=== PATIENT | female | born 1930 | race Caucasian/White ===

== ENCOUNTER 2017-01-01 07:35 | Inpatient (IN) | payer MEDICARE ==
[~2017-01-01] VITALS: Ht 149.9 cm; Wt 66.3 kg
[2017-01-01] VITALS (16 sets, daily range): BP systolic 94–118; BP diastolic 49–66; PULSE 68–134; RESP 16–25; TEMP 98.2–99.1; O2SAT 95–98
[~2017-01-01 07:35] MED LIST: ASPI81 PO; CARD180C5 PO; COUM4TAB7 PO; ENAL5TAB98 PO; FURO20TA PO; GABA100C4 PO; LEVO50TA51 PO; LIPI80TA16 PO; METO50TA PO; OCUV PO; POTA8TAB27 PO; WARF2.5 PO
[2017-01-01] MEDS ORDERED: DILTIAZEM HCL 25 MG/5 ML VIAL IV PUSH ONE (08:00)
[2017-01-01] MEDS ORDERED: SODIUM CHLORIDE 0.9% FLUSH 10 ML FLUSH IVF PRN (08:00)
--- NOTE | 2017-01-01 08:01 | PD ---
HPI Chief Complaint: Cardiac Complaint Time Seen by Provider: 07:47 Travel History International Travel<30 days: No Contact w/Intl Traveler<30days: No Traveled to known affect area: No History of Present Illness HPI His is an 86-year-old female with a history of CHF, previous CVA, previous TIA, mitral valve replacement, atrial fibrillation, who presents today with complaints of her defibrillator firing several times this morning. The patient states that she's had at least 3 possibly 4 episodes of the defibrillator firing in the last several hours. When the paramedics arrived, they found the patient to be in A. fib with RVR. They reported her rate was in the 160s to 180s. The paramedics say they witnessed the defibrillator firing at least 2 times. They administered 20 mg of diltiazem which brought her rate down into the 120s 130s. The patient has no complaints of chest pain or palpitations. She states that she did not feel any preceding effects before the defibrillator fired. Paramedics also reported they thought that they saw several PVCs and possibly a short run of PVCs. The did not have that captured on their monitor. PFSH Past Medical History Hx Anticoagulant Therapy: Yes Arthritis: Yes (LEGS) Asthma: No Autoimmune Disease: No Blood Disorders: No Heart Rhythm Problems: Yes Cancer: No Cardiovascular Problems: Yes High Cholesterol: No Chemotherapy: No Chest Pain: No Congestive Heart Failure: Yes COPD: No Cerebrovascular Accident: Yes (TIA ) Diabetes: No Diminished Hearing: Yes (BILATERAL HEARING AIDES) Endocrine: No Gastrointestinal Disorders: No GERD: No Glaucoma: No Headaches: No Hepatitis: No Hiatal Hernia: No Heparin Induced Thrombocytopen: No Hypertension: Yes Immune Disorder: No Kidney Stones: No Musculoskeletal: Yes Neurologic: Yes Reproductive: No Respiratory: No Integumentary: Yes (LYMPHADEMA ) Migraines: No Myocardial Infarction: No Radiation Therapy: No Renal Failure: No Seizures: No Sickle Cell Disease: No Sleep Apnea: No Thyroid Disease: Yes Ulcer: No ?: Not Menopausal: No Past Surgical History Abdominal Surgery: No AICD: Yes ([facility] ) Appendectomy: No Arteriovenous Shunt: No Cardiac Surgery: Yes (mitral valve 2000) Cholecystectomy: No Ear Surgery: No Endocrine Surgery: No Genitourinary Surgery: No Gynecologic Surgery: No Hysterectomy: No Insulin Pump: No Joint Replacement: No Oral Surgery: Yes (tonsils out) Pacemaker: Yes (PLACED 09/30/08) Thoracic Surgery: No Valve Replacement: Yes (MITRAL VALVE 1999) Other Surgery: Yes (DEFIBRILATOR 2003) Social History Alcohol Use: No Tobacco Use: No Substance Use: No Allergies-Medications (Allergen,Severity, Reaction): Coded Allergies: No Known Allergies (Verified , 10/07/08) Uncoded Allergies: SLEEPING PILLS (Allergy, Severe, 03/11/03) Reported Meds & Prescriptions Reported Meds & Active Scripts Active Reported Ferrous Sulfate 325 Mg (65 Mg Iron) Tablet 325 Mg PO DAILY Centravites 50 Plus (Multivit with Iron,Minerals) 1 Each Tablet 1 Tab PO DAILY Ocuvite Adult 50+ (Multiple Vitamins W/ Minerals) 1 Cap 1 Cap PO DAILY Coq-10 (Coenzyme Q10 (Ubidecarenone)) 50 Mg Cap 200 Mg PO DAILY Folic Acid 0.4 Mg Tab 1 Mg PO DAILY Losartan (Losartan Potassium) 50 Mg Tab 50 Mg PO DAILY Levothyroxine (Levothyroxine Sodium) 75 Mcg Tab 75 Mcg PO DAILY K-Tab (Potassium Chloride) 8 Meq Tab 8 Meq PO BID Furosemide 20 Mg Tab 20 Mg PO BID Metoprolol Tartrate 25 Mg Tab 75 Mg PO BID Atorvastatin (Atorvastatin Calcium) 10 Mg Tab 10 Mg PO HS Warfarin 2.5 Mg Tab 1.25 Mg PO DAILY Gabapentin 300 Mg Cap 300 Mg PO HS Review of Systems Except as stated in HPI: all other systems reviewed are Neg General / Constitutional: No: Fever, Chills HENT: No: Headaches, Lightheadedness Cardiovascular: Positive: Chest Pain or Discomfort (1 the defibrillator fired none when it hasn't fired), Irregular Rhythm (a true fibrillation) Respiratory: No: Cough, Shortness of Breath Gastrointestinal: No: Nausea, Vomiting, Abdominal Pain Genitourinary: No: Urgency, Dysuria Musculoskeletal: Positive: Edema (chronic lower extremity edema), No: Pain Neurologic: No: Weakness, Dizziness, Headache Physical Exam Narrative GENERAL: Well-developed well-nourished female in no acute respiratory distress. SKIN: Focused skin assessment warm/dry. HEAD: Atraumatic. Normocephalic. EYES: No scleral icterus. No injection or drainage. ENT: No nasal bleeding or discharge. Mucous membranes pink and moist. NECK: Trachea midline. No JVD. Supple. CARDIOVASCULAR: Irregularly irregular with a rate in the 130s. No obvious murmur appreciated. RESPIRATORY: No accessory muscle use. Clear to auscultation. Breath sounds equal bilaterally. GASTROINTESTINAL: Abdomen soft, non-tender, nondistended. MUSCULOSKELETAL: No obvious deformities. No clubbing. No cyanosis. No edema. NEUROLOGICAL: Awake and alert. No obvious cranial nerve deficits. Motor grossly within normal limits. Normal speech. PSYCHIATRIC: Appropriate mood and affect; insight and judgment normal. Data Data Last Documented VS Vital Signs Date Time Temp Pulse Resp B/P (MAP) Pulse Ox O2 Delivery O2 Flow Rate FiO2 01/01/17 09:22 137 97/52 01/01/17 08:56 24 97 Nasal Cannula 01/01/17 07:55 2.00 01/01/17 07:48 99.1 Orders Orders Electrocardiogram (01/01/17 ) Electrocardiogram (01/01/17 07:47) Ckmb (Isoenzyme) Profile (01/01/17 07:47) Complete Blood Count With Diff (01/01/17 07:47) Comprehensive Metabolic Panel (01/01/17 07:47) Magnesium (Mg) (01/01/17 07:47) Prothrombin Time / Inr (Pt) (01/01/17 07:47) Act Partial Throm Time (Ptt) (01/01/17 07:47) Troponin I (01/01/17 07:47) Chest, Single Ap (01/01/17 07:47) Ecg Monitoring (01/01/17 07:47) Bilateral Bp Monitoring (01/01/17 07:47) Iv Access Insert/Monitor (01/01/17 07:47) Oximetry (01/01/17 07:47) Oxygen Administration (01/01/17 07:47) Sodium Chloride 0.9% Flush (Ns Flush) (01/01/17 08:00) Diltiazem Inj (Cardizem Inj) (01/01/17 08:00) Diltiazem Inj (Cardizem Inj) (01/01/17 08:00) Admit Order (Ed Use Only) (01/01/17 09:32) Type And Screen (01/01/17 09:33) Red Blood Cells (Rbc) (01/01/17 09:33) Blood Product Administration (01/01/17 09:33) Sodium Chlor 0.9% 250 Ml Inj (Ns 250 Ml (01/01/17 09:45) Labs Laboratory Tests Test 01/01/17 07:54 White Blood Count 25.5 TH/MM3 Red Blood Count 3.00 MIL/MM3 Hemoglobin 8.4 GM/DL Hematocrit 25.7 % Mean Corpuscular Volume 85.7 FL Mean Corpuscular Hemoglobin 27.9 PG Mean Corpuscular Hemoglobin Concent 32.6 % Red Cell Distribution Width 16.4 % Platelet Count 252 TH/MM3 Mean Platelet Volume 7.4 FL Neutrophils (%) (Auto) 91.9 % Lymphocytes (%) (Auto) 2.0 % Monocytes (%) (Auto) 5.9 % Eosinophils (%) (Auto) 0.0 % Basophils (%) (Auto) 0.2 % Neutrophils # (Auto) 23.5 TH/MM3 Lymphocytes # (Auto) 0.5 TH/MM3 Monocytes # (Auto) 1.5 TH/MM3 Eosinophils # (Auto) 0.0 TH/MM3 Basophils # (Auto) 0.0 TH/MM3 CBC Comment AUTO DIFF Differential Comment AUTO DIFF CONFIRMED Prothrombin Time 24.8 SEC Prothromb Time International Ratio 2.2 RATIO Activated Partial Thromboplast Time 36.9 SEC Blood Urea Nitrogen 16 MG/DL Creatinine 0.66 MG/DL Random Glucose 102 MG/DL Total Protein 6.2 GM/DL Albumin 2.5 GM/DL Calcium Level 8.1 MG/DL Magnesium Level 1.3 MG/DL Alkaline Phosphatase 75 U/L Aspartate Amino Transf (AST/SGOT) 17 U/L Alanine Aminotransferase (ALT/SGPT) 13 U/L Total Bilirubin 0.9 MG/DL Sodium Level 138 MEQ/L Potassium Level 3.4 MEQ/L Chloride Level 103 MEQ/L Carbon Dioxide Level 25.4 MEQ/L Anion Gap 10 MEQ/L Estimat Glomerular Filtration Rate 85 ML/MIN Total Creatine Kinase 22 U/L Troponin I 0.06 NG/ML [facility] Medical Decision Making Medical Screen Exam Complete: Yes Emergency Medical Condition: Yes Differential Diagnosis A. fib with RVR versus V. tach versus sinus tach versus ACS Narrative Course A 6-year-old female presents after having her defibrillator fire several times this morning. The patient was noted to be in A. fib with RVR on initial EMS evaluation. They gave her 20 mg of IVD Cardizem which brought her rate down into the 120s 130s. She's had no further firings since then. The patient's noted to be anemic with a hemoglobin of 8.4. She was given a second bolus of diltiazem and placed on a drip. She's currently still in the 120s with her heart rate. Troponin was slightly elevated at 0.08. This is likely secondary to the fibrillator firing. She'll be admitted to the CICU. Case was discussed with Dr. Dilshad Cabrera, [facility] healthcare hospitalist. We did have the defibrillator interrogated and there are no episodes of V. fib or V. tach. She did have rate determine firings. Diagnosis Primary Impression: Atrial fibrillation with RVR Additional Impressions: Anemia Implantable cardioverter-defibrillator discharge Admitting Information Admitting Physician Requests: Admit Pete Camarillo MD Jan 01, 2017 08:01
[2017-01-01 08:05] LABS: AUTOMATED NEUTROPHIL # 23.5 TH/MM3 (1.8-7.7); BASOPHIL % 0.2 % (0.0-2.0); HEMATOCRIT 25.7 % (35.0-46.0); LYMPHOCYTE # 0.5 TH/MM3 (1.0-4.8); MEAN CELL VOLUME 85.7 FL (80.0-100.0); MEAN CORPUSCULAR HEMOGLOBIN 27.9 PG (27.0-34.0); MEAN CORPUSCULAR HGB CONC 32.6 % (32.0-36.0); MONO % 5.9 % (0.0-8.0); NEUT % 91.9 % (16.0-70.0); PLATELET COUNT 252 TH/MM3 (150-450); RED CELL DISTRIBUTION WIDTH 16.4 % (11.6-17.2); WHITE BLOOD COUNT 25.5 TH/MM3 (4.0-11.0)
[2017-01-01 08:12] LABS: HEMO FLAGS AUTO DIFF
[2017-01-01 08:22] LABS: APTT (PATIENT) 36.9 SEC (24.3-30.1); INTERNATIONAL NORMALIZED RATIO 2.2 RATIO; PROTHROMBIN TIME - PATIENT 24.8 SEC (9.8-11.6)
[2017-01-01 08:26] LABS: ANION GAP 10 MEQ/L (5-15); AST (GOT) 17 U/L (15-37); BICARBONATE 25.4 MEQ/L (21.0-32.0); BLOOD UREA NITROGEN 16 MG/DL (7-18); CHLORIDE 103 MEQ/L (98-107); GLOMERULAR FILTRATION RATE 85 ML/MIN (>89); MAGNESIUM 1.3 MG/DL (1.5-2.5); POTASSIUM 3.4 MEQ/L (3.5-5.1); SODIUM (NA) 138 MEQ/L (136-145)
[2017-01-01 08:31] LABS: ALKALINE PHOSPHATASE 75 U/L (45-117); ALT (GPT) 13 U/L (10-53); TOTAL BILIRUBIN ADULT 0.9 MG/DL (0.2-1.0)
[2017-01-01 08:32] LABS: CREATINE KINASE 22 U/L (26-192)
--- NOTE | 2017-01-01 08:35 | RADRPT ---
EXAM DATE/TIME: 01/01/2017 08:08 [place] COMPARISON: No previous studies available for comparison. INDICATIONS : Chest pain. MEDICAL HISTORY : None. SURGICAL HISTORY : CABG. Defibrillator. ENCOUNTER: Initial ACUITY: 1 day PAIN SCORE: 4/10 LOCATION: Bilateral chest FINDINGS: A single view of the chest demonstrates cardiomegaly status post mitral valve replacement with pacer leads right atrium and right ventricle. Minimal basilar atelectasis. No effusion. No pneumothorax. CONCLUSION: 1. Cardiomegaly. Minimal basilar atelectasis. Postoperative change as above. Dylan Olivarez MD on January 01, 2017 at 8:28 Board Certified Radiologist. This report was verified electronically.
[2017-01-01] MEDS: DILTIAZEM INJ 125 MG in SODIUM CHLORIDE 0.9% INJ 100 ML IV PRN ×2 (08:41→21:48)
[2017-01-01] MEDS ORDERED: METO25TA3 PO (08:56)
[2017-01-01] MEDS ORDERED: OCUVCAP2 PO (08:56)
[2017-01-01] MEDS ORDERED: FOLI400T PO (08:56)
[2017-01-01] MEDS ORDERED: LOSA50TA PO (08:56)
[2017-01-01] MEDS ORDERED: COQ-50CA2 PO (08:56)
[2017-01-01] MEDS ORDERED: CENT50TA PO (08:56)
[2017-01-01] MEDS ORDERED: ATOR10TA15 PO (08:56)
[2017-01-01] MEDS ORDERED: WARF-18 PO (08:56)
[2017-01-01] MEDS ORDERED: FERR325T18 PO (08:56)
[2017-01-01] MEDS ORDERED: GABA300C5 PO (08:56)
[2017-01-01] MEDS ORDERED: POTA1TAB77 PO (08:56)
[2017-01-01] MEDS ORDERED: FURO20TA PO (08:56)
[2017-01-01] MEDS ORDERED: LEVO75TA3 PO (08:56)
[2017-01-01 09:01] LABS: SCAN/DIFF AUTO DIFF CONFIRMED
[2017-01-01] MEDS ORDERED: SODIUM CHLORIDE 0.9% FLUSH 10 ML FLUSH IV FLUSH PRN (09:45)
[2017-01-01] MEDS ORDERED: ONDANSETRON HCL 4 MG/2 ML VIAL IVP PRN (09:45)
[2017-01-01] MEDS ORDERED: MAGNESIUM HYDROXIDE SUSP 30 ML CUP PO PRN (09:45)
[2017-01-01] MEDS ORDERED: ACETAMINOPHEN 325 MG TAB PO PRN (09:45)
[2017-01-01] MEDS ORDERED: SODIUM CHLOR 0.9% 250 ML INJ 250 ML IV ONE (09:45)
[2017-01-01] MEDS ORDERED: NALOXONE HCL 0.4 MG/ML AMP IV PUSH PRN (09:45)
[2017-01-01] MEDS ORDERED: POTASSIUM CHLORIDE 20 MEQ CONTROLLED RELEASE TAB PO ONE (09:45)
--- NOTE | 2017-01-01 09:53 | HHI.HP ---
HPI Service [facility] Hospitalists Primary Care Physician Vipul Bowen D.O. Admission Diagnosis afib with rvr, discharge of defibrillator, anemia Chief Complaint: AICD fired mutiple times Travel History International Travel<30 Days: No Contact w/Intl Traveler <30 Da: No Traveled to Known Affected Are: No History of Present Illness This is a 86 year old female patient with a past medical history which includes : Iron deficiency anemia, atrial fibrillation; currently on Coumadin, hyperlipidemia, HTN, defibrillator, mechanical mitral valve, cardiomyopathy with systolic CHF, AICD, RA and TIA. Patient reports that she awoke in her normal state of kandis sat down before breakfast and then experienced multiple shocks from her defibrillator. Patient reports feeling 3 maybe 4 shocks at home. Prior to shocks patient felt, "irritable stomach." Patient did not recall feeling palpitations. Also denies feeling dizzy or lightheaded. Per ER documentation: EMS reported her rate was in the 160s to 180s. The paramedics say they witnessed the defibrillator firing at least 2 times. They administered 20 mg of diltiazem which brought her rate down into the 120s 130s. Patient denies fever, chills, sore throat, dysuria, shortness of breath or cough. Patient was started on iron and folic acid about two weeks ago. Other than the addition of iron and folic acid no other changes in medications recently. 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 Hyperlipidemia Hypothyroidism HTN cardiomyopathy with systolic CHF Defibrillator Mechanical Mitral valve Rheumatoid Arthritis Transient Ischemic Attack (TIA) Past Surgical History Cardio- defibrillator placement Colonoscopy Mechanical mitral valve replacement Tonsillectomy Tubal ligation Reported Medications Ferrous Sulfate 325 Mg (65 Mg Iron) Tablet 325 Mg PO DAILY Centravites 50 Plus (Multivit with Iron,Minerals) 1 Each Tablet 1 Tab PO DAILY Ocuvite Adult 50+ (Multiple Vitamins W/ Minerals) 1 Cap 1 Cap PO DAILY Coq-10 (Coenzyme Q10 (Ubidecarenone)) 50 Mg Cap 200 Mg PO DAILY Folic Acid 0.4 Mg Tab 1 Mg PO DAILY Losartan (Losartan Potassium) 50 Mg Tab 50 Mg PO DAILY Levothyroxine (Levothyroxine Sodium) 75 Mcg Tab 75 Mcg PO DAILY K-Tab (Potassium Chloride) 8 Meq Tab 8 Meq PO BID Furosemide 20 Mg Tab 20 Mg PO BID Metoprolol Tartrate 25 Mg Tab 75 Mg PO BID Atorvastatin (Atorvastatin Calcium) 10 Mg Tab 10 Mg PO HS Warfarin 2.5 Mg Tab 1.25 Mg PO DAILY Gabapentin 300 Mg Cap 300 Mg PO HS Allergies: Coded Allergies: No Known Allergies (Verified , 10/07/08) Uncoded Allergies: SLEEPING PILLS (Allergy, Severe, 03/11/03) Active Ordered Medications Current Medications Medications (Trade) Dose Ordered Sig/Denis Route Start Time Stop Time Status Last Admin (NS Flush) 2 ml UNSCH PRN IVF 01/01/17 08:00 Diltiazem HCl 125 mg/Sodium Chloride 125 ml @ 5 mls/hr TITRATE PRN IV 01/01/17 08:00 01/01/17 08:41 Sodium Chloride 250 ml @ 15 mls/hr ONCE ONCE IV 01/01/17 09:45 01/02/17 02:24 (Lipitor) 10 mg HS PO 01/01/17 21:00 (Ferrous Sulfate) 325 mg DAILY PO 01/02/17 09:00 (Lasix) 20 mg BID@0900,1800 PO 01/01/17 18:00 (Neurontin) 300 mg HS PO 01/01/17 21:00 (Synthroid) 75 mcg DAILY@0600 PO 01/02/17 06:00 (Cozaar) 50 mg DAILY PO 01/02/17 09:00 Future Hold (Lopressor) 75 mg BID PO 01/01/17 21:00 Future Hold (KCl) 8 meq BID PO 01/01/17 21:00 (Coumadin) 1.25 mg DAILY@1600 PO 01/02/17 16:00 Magnesium Sulfate/ Dextrose 100 ml @ 100 mls/hr Q1H IV 01/01/17 09:45 01/01/17 11:44 01/01/17 10:36 (NS Flush) 2 ml UNSCH PRN IV FLUSH 01/01/17 09:45 (NS Flush) 2 ml BID IV FLUSH 01/01/17 21:00 (Tylenol) 650 mg Q4H PRN PO 01/01/17 09:45 (Zofran Inj) 4 mg Q6H PRN IVP 01/01/17 09:45 (Narcan Inj) 0.4 mg UNSCH PRN IV PUSH 01/01/17 09:45 (Marisela-Colace) 1 tab BID PO 01/01/17 21:00 (Milk Of Magnesia Liq) 30 ml Q12H PRN PO 01/01/17 09:45 (Pill Splitter) 1 ea UNSCH PRN OTHER 01/01/17 10:00 Iron Sucrose 100 mg/Sodium Chloride 105 ml @ 105 mls/hr DAILY IV 01/01/17 12:00 01/03/17 09:59 Family History Father at 93 secondary to old age Denies family medical history Social History Lives alone, has a daughter that lives in [place] and helps often. Patient also has neighbors who bring groceries independent with ADL ambulated with cane and walker denies ETOH use, tobacco use or illicit drugs use Physical Exam Vital Signs Vital Signs Date Time Temp Pulse Resp B/P (MAP) Pulse Ox O2 Delivery O2 Flow Rate FiO2 01/01/17 09:44 118 19 99/54 (69) 98 Nasal Cannula 01/01/17 09:22 137 97/52 01/01/17 08:56 110 24 104/59 (74) 97 Nasal Cannula 01/01/17 08:41 115 106/53 01/01/17 08:37 121 24 115/55 (75) 97 Nasal Cannula 01/01/17 08:13 127 22 103/59 (74) 01/01/17 07:56 134 24 109/64 (79) 98 Nasal Cannula 118/64 (82) 01/01/17 07:55 98 Nasal Cannula 2.00 01/01/17 07:48 120 94 Nasal Cannula 2.00 01/01/17 07:48 99.1 121 24 109/64 (79) 97 Nasal Cannula 2.00 Physical Exam GENERAL: This is an 84 year old female patient well-nourished, well-developed patient, in no apparent distress. SKIN: No rashes, ecchymoses or lesions. Cool and dry. HEAD: Atraumatic. Normocephalic. No temporal or scalp tenderness. EYES: Extraocular motions intact. No scleral icterus. No injection or drainage. CARDIOVASCULAR: Irregular and tachycardic RESPIRATORY: Clear to auscultation. Breath sounds equal bilaterally. GASTROINTESTINAL: Abdomen soft, non-tender, nondistended. No guarding. MUSCULOSKELETAL: Extremities without clubbing, cyanosis, or edema. No joint tenderness, effusion, or edema noted. No calf tenderness. Negative Homans sign bilaterally. NEUROLOGICAL: Awake and alert. No focal deficits. Motor and sensory grossly within normal limits. 4 out of 5 muscle strength in all muscle groups. Normal speech. Laboratory Laboratory Tests Test 01/01/17 07:54 White Blood Count 25.5 Red Blood Count 3.00 Hemoglobin 8.4 Hematocrit 25.7 Mean Corpuscular Volume 85.7 Mean Corpuscular Hemoglobin 27.9 Mean Corpuscular Hemoglobin Concent 32.6 Red Cell Distribution Width 16.4 Platelet Count 252 Mean Platelet Volume 7.4 Neutrophils (%) (Auto) 91.9 Lymphocytes (%) (Auto) 2.0 Monocytes (%) (Auto) 5.9 Eosinophils (%) (Auto) 0.0 Basophils (%) (Auto) 0.2 Neutrophils # (Auto) 23.5 Lymphocytes # (Auto) 0.5 Monocytes # (Auto) 1.5 Eosinophils # (Auto) 0.0 Basophils # (Auto) 0.0 CBC Comment AUTO DIFF Differential Comment AUTO DIFF CONFIRMED Prothrombin Time 24.8 Prothromb Time International Ratio 2.2 Activated Partial Thromboplast Time 36.9 Blood Urea Nitrogen 16 Creatinine 0.66 Random Glucose 102 Total Protein 6.2 Albumin 2.5 Calcium Level 8.1 Magnesium Level 1.3 Alkaline Phosphatase 75 Aspartate Amino Transf (AST/SGOT) 17 Alanine Aminotransferase (ALT/SGPT) 13 Total Bilirubin 0.9 Sodium Level 138 Potassium Level 3.4 Chloride Level 103 Carbon Dioxide Level 25.4 Anion Gap 10 Estimat Glomerular Filtration Rate 85 Total Creatine Kinase 22 Troponin I 0.06 Result Diagram: 01/01/17 0754 01/01/17 0754 Imaging Last Impressions Chest X-Ray 01/01/17 2229 Signed Impressions: Service Date/Time: Sunday, January 01, 2017 08:08 - CONCLUSION: 1. Cardiomegaly. Minimal basilar atelectasis. Postoperative change as above. Dylan Olivarez MD Caprini VTE Risk Assessment Caprini VTE Risk Assessment: Mod/High Risk (score >= 2) Caprini Risk Assessment Model Point Value = 1 Point Value = 2 Point Value = 3 Point Value = 5 Age 41-60 Minor surgery BMI > 25 kg/m2 Swollen legs Varicose veins or History of unexplained or recurrent spontaneous Oral contraceptives or hormone replacement Sepsis (< 1 month) Serious lung disease, including pneumonia (< 1 month) Abnormal pulmonary function Acute myocardial infarction Congestive heart failure (< 1 month) History of inflammatory bowel disease Medical patient at bed rest Age 61-74 Arthroscopic surgery Major open surgery (> 45 min) Laparoscopic surgery (> 45 min) Malignancy Confined to bed (> 72 hours) Immobilizing plaster cast Central venous access Age >= 75 History of VTE Family history of VTE Factor V Leiden Prothrombin [id number] Lupus anticoagulant Anticardiolipin antibodies Elevated serum homocysteine Heparin-induced thrombocytopenia Other congenital or acquired thrombophilia Stroke (< 1 month) Elective arthroplasty Hip, pelvis, or leg fracture Acute spinal cord injury (< 1 month) Prophylaxis Regimen Total Risk Factor Score Risk Level Prophylaxis Regimen 0-1 Low Early ambulation 2 Moderate Order ONE of the following: *Sequential Compression Device (SCD) *Heparin 5000 units SQ BID 3-4 Higher Order ONE of the following medications: *Heparin 5000 units SQ TID *Enoxaparin/Lovenox 40 mg SQ daily (WT < 150 kg, CrCl > 30 mL/min) *Enoxaparin/Lovenox 30 mg SQ daily (WT < 150 kg, CrCl > 10-29 mL/min) *Enoxaparin/Lovenox 30 mg SQ BID (WT < 150 kg, CrCl > 30 mL/min) AND/OR *Sequential Compression Device (SCD) 5 or more Highest Order ONE of the following medications: *Heparin 5000 units SQ TID (Preferred with Epidurals) *Enoxaparin/Lovenox 40 mg SQ daily (WT < 150 kg, CrCl > 30 mL/min) *Enoxaparin/Lovenox 30 mg SQ daily (WT < 150 kg, CrCl > 10-29 mL/min) *Enoxaparin/Lovenox 30 mg SQ BID (WT < 150 kg, CrCl > 30 mL/min) AND *Sequential Compression Device (SCD) Assessment and Plan Problem List: (1) Atrial fibrillation with RVR ICD Codes: I48.91 - Unspecified atrial fibrillation Status: Acute Plan: Atrial Fibrillation with RVR Initial EKG reviewed and reveals Atrial Fibrillation RVR with inverted T waves leads V3- V6, EKG from 2013 also showed inverted T waves V3-V6 Patient was shocked by her defibrillator multiple time device interrogated and reveals: 9 VF zone with 9 shocks, 3 in VT- 2 zone with 6 shocks and 48 classed SVT magnesium low on admission 1.3 replaced Potassium also low on admission replaced Troponin 0.06 on admission will trend troponin, likely from defibrillator discharge Patient given Cardizem 20mg IV by EMS started on Cardizem drip in ER will continue Anemia- 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 Niño outpatient Per outpatient records: Outpatient iron studies have shown a very low iron saturation of 10%. She has had extensive work-up including thyroid function testing, B12 and folate testing which was all normal. Her LDH was slightly elevated, haptoglobin was low and direct Iza test was negative. 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 Plan to received iron infusion as outpatient on Tuesday will add iron profile to blood work Will start Venofer today Hypothyroidism Continue home levothyroxine Last TSH check 12/20/16 2.040 Hyperlipidemia continue patient's home statin regiment HTN Will hold patient's home metoprolol 75 mg BID and Losartan 50 mg daily patient currently on Cardizem drip with hypotension Leukocytosis WBC 25.5 possibly due to stress of defibrillator shock and elevated HR no other s/s of infection, afebrile, CXR reviewed and reveals cardiomegaly with bibasilar atelectasis no cough congestion or dysuria monitor for s/s in infection repeat CBC in AM DVT prophylaxis patient is on Coumadin (2) Implantable cardioverter-defibrillator discharge ICD Codes: Z45.02 - Encounter for adjustment and management of automatic implantable cardiac defibrillator Status: Acute (3) Anemia ICD Codes: D64.9 - Anemia, unspecified Status: Acute Physician Certification 2 Midnight Certification Type: Admission for Inpatient Services Order for Inpatient Services The services are ordered in accordance with Medicare regulations or non- Medicare payer requirements, as applicable. In the case of services not specified as inpatient-only, they are appropriately provided as inpatient services in accordance with the 2-midnight benchmark. Estimated LOS (days): 2 days is the estimated time the patient will need to remain in the hospital, assuming treatment plan goals are met and no additional complications. Post-Hospital Plan: Home Claudia Damon Jan 01, 2017 09:53
[2017-01-01] MEDS ORDERED: PILL SPLITTER OTHER PRN (10:00)
[2017-01-01] MEDS: MAGNESIUM SULFATE 1 GM PREMIX 100 ML IV SCH ×2 (10:36→11:46)
[2017-01-01] MEDS: IRON SUCROSE INJ 100 MG in SODIUM CHLORIDE 0.9% INJ 100 ML IV SCH (12:00)
--- NOTE | 2017-01-01 14:29 | EKG ---
Date Performed: 01/01/2017 Time Performed: 07:48:36 PTAGE: 86 years EKG: ATRIAL FIBRILLATION WITH RAPID VENTRICULAR RESPONSE ST DEVIATION AND MODERATE T-WAVE ABNORM ALITY, CONSIDER ANTEROLATERAL ISCHEMIA ST DEVIATION AND MODERATE T-WAVE ABNORMALITY, CONSIDER INFERIO R ISCHEMIA ABNORMAL ECG PREVIOUS TRACING : 02/04/2014 08.22 Compared to prior tracing no significant change DOCTOR: Bill Ramirez Interpretating Date/Time 01/01/2017 14:27:43
[2017-01-01] MEDS: GABAPENTIN 300 MG CAP PO SCH (20:23)
[2017-01-01] MEDS: ATORVASTATIN 10 MG TAB PO SCH (20:24)
[2017-01-01] MEDS: DOCUSATE SODIUM 50 MG/SENNA 8.6 MG TAB PO SCH (20:24)
[2017-01-01] MEDS: POTASSIUM CHLORIDE 8 MEQ CONTROLLED RELEASE TAB PO SCH (20:24)
[2017-01-01] MEDS: FUROSEMIDE 20 MG TAB PO SCH (20:24)
[2017-01-01] MEDS: SODIUM CHLORIDE 0.9% FLUSH 10 ML FLUSH IV FLUSH SCH (20:25)
[2017-01-01] MEDS ORDERED: METOPROLOL TARTRATE 25 MG TAB PO SCH (21:00)
--- NOTE | 2017-01-01 23:35 | EKG ---
Date Performed: 01/01/2017 Time Performed: 15:09:16 PTAGE: 86 years EKG: ATRIAL FIBRILLATION NONSPECIFIC ST & T-WAVE ABNORMALITY ABNORMAL RHYTHM ECG PREVIOUS TRACING : 01/01/2017 07.48 Compared to the previous tracing, rate has decreased and ST /T wave changes are less prominent DOCTOR: Bill Ramirez Interpretating Date/Time 01/01/2017 23:34:29
[2017-01-02] VITALS (14 sets, daily range): BP systolic 108–139; BP diastolic 54–65; PULSE 74–106; RESP 16–26; TEMP 98.2–98.9; O2SAT 91–97
[2017-01-02] MEDS: LEVOTHYROXINE SODIUM 75 MCG TAB PO SCH (06:28)
--- NOTE | 2017-01-02 08:07 | PD.CONS ---
HPI Service cardiology Consult Requested By Reason for Consult defib shock/ afib Primary Care Physician Vipul Bowen D.O. History of Present Illness This is an 86 yo WF with atrial fibrillation, mechanical mitral valve ( anticoagulated on coumadin), cardiomyopathy (ICD in place), history of TIA and anemia who presented to ED via EMS yesterday after receiving multiple defibrillator shocks at home. She had been visiting family the day prior for Thanksgiving and felt well; yesterday morning she began to feel mild stomach upset but otherwise well. She denies SOB, chest pain or palpitations. Her daughter witnessed her receive several shocks and called EMS. She then went on to receive ~ 15 more shocks attributed to Vfib and Vtach seen on device interrogation. Cardizem IV started and HR remains stable. She is being treated for anemia currently, with unknown cause at this point. Hgb low (8.4) upon arrival. ECG showed lateral ST depression, troponins increased. Last echo in 2014 showed EF 25-30%. Magnesium and potassium low. She is currently resting comfortably. 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 Hyperlipidemia Hypothyroidism HTN cardiomyopathy with systolic CHF Defibrillator Mechanical Mitral valve Rheumatoid Arthritis Transient Ischemic Attack (TIA) Past Surgical History Cardio- defibrillator placement Colonoscopy Mechanical mitral valve replacement Tonsillectomy Tubal ligation Reported Medications Reported Meds & Active Scripts Active Reported Ferrous Sulfate 325 Mg (65 Mg Iron) Tablet 325 Mg PO DAILY Centravites 50 Plus (Multivit with Iron,Minerals) 1 Each Tablet 1 Tab PO DAILY Ocuvite Adult 50+ (Multiple Vitamins W/ Minerals) 1 Cap 1 Cap PO DAILY Coq-10 (Coenzyme Q10 (Ubidecarenone)) 50 Mg Cap 200 Mg PO DAILY Folic Acid 0.4 Mg Tab 1 Mg PO DAILY Losartan (Losartan Potassium) 50 Mg Tab 50 Mg PO DAILY Levothyroxine (Levothyroxine Sodium) 75 Mcg Tab 75 Mcg PO DAILY K-Tab (Potassium Chloride) 8 Meq Tab 8 Meq PO BID Furosemide 20 Mg Tab 20 Mg PO BID Metoprolol Tartrate 25 Mg Tab 75 Mg PO BID Atorvastatin (Atorvastatin Calcium) 10 Mg Tab 10 Mg PO HS Warfarin 2.5 Mg Tab 1.25 Mg PO DAILY Gabapentin 300 Mg Cap 300 Mg PO HS Active Ordered Medications Current Medications Medications (Trade) Dose Ordered Sig/Denis Route Start Time Stop Time Status Last Admin (NS Flush) 2 ml UNSCH PRN IVF 01/01/17 08:00 Diltiazem HCl 125 mg/Sodium Chloride 125 ml @ 5 mls/hr TITRATE PRN IV 01/01/17 08:00 01/01/17 21:48 (Lipitor) 10 mg HS PO 01/01/17 21:00 01/01/17 20:24 (Ferrous Sulfate) 325 mg DAILY PO 01/02/17 09:00 (Lasix) 20 mg BID@0900,1800 PO 01/01/17 18:00 01/01/17 20:24 (Neurontin) 300 mg HS PO 01/01/17 21:00 01/01/17 20:23 (Synthroid) 75 mcg DAILY@0600 PO 01/02/17 06:00 01/02/17 06:28 (Cozaar) 50 mg DAILY PO 01/02/17 09:00 Future Hold (Lopressor) 75 mg BID PO 01/01/17 21:00 Future Hold (KCl) 8 meq BID PO 01/01/17 21:00 01/01/17 20:24 (Coumadin) 1.25 mg DAILY@1600 PO 01/02/17 16:00 (NS Flush) 2 ml UNSCH PRN IV FLUSH 01/01/17 09:45 (NS Flush) 2 ml BID IV FLUSH 01/01/17 21:00 01/01/17 20:25 (Tylenol) 650 mg Q4H PRN PO 01/01/17 09:45 (Zofran Inj) 4 mg Q6H PRN IVP 01/01/17 09:45 (Narcan Inj) 0.4 mg UNSCH PRN IV PUSH 01/01/17 09:45 (Marisela-Colace) 1 tab BID PO 01/01/17 21:00 01/01/17 20:24 (Milk Of Magnesia Liq) 30 ml Q12H PRN PO 01/01/17 09:45 (Pill Splitter) 1 ea UNSCH PRN OTHER 01/01/17 10:00 Iron Sucrose 100 mg/Sodium Chloride 105 ml @ 105 mls/hr DAILY IV 01/01/17 12:00 01/03/17 09:59 Family History Father at 93 secondary to old age Denies family medical history Social History Lives alone, has a daughter that lives in [place] and helps often. Patient also has neighbors who bring groceries independent with ADL ambulated with cane and walker denies ETOH use, tobacco use or illicit drugs use (Harika Crenshaw) Physical Exam Vital Signs Vital Signs Date Time Temp Pulse Resp B/P (MAP) Pulse Ox O2 Delivery O2 Flow Rate FiO2 01/02/17 06:00 96 01/02/17 04:00 98.8 89 22 108/56 (73) 97 01/02/17 04:00 89 01/02/17 02:00 89 01/02/17 00:00 97 01/02/17 00:00 98.4 97 20 114/58 (76) 97 01/01/17 22:00 101 01/01/17 21:48 102 114/54 01/01/17 20:31 97 Nasal Cannula 2.00 01/01/17 20:00 98.2 92 21 101/49 (66) 96 01/01/17 20:00 92 01/01/17 18:00 84 01/01/17 16:45 98.5 104 16 102/66 95 01/01/17 16:43 98.9 92 16 103/53 01/01/17 16:00 84 01/01/17 16:00 98.5 68 16 102/54 (70) 95 01/01/17 14:00 84 01/01/17 12:46 81 24 99/54 (69) 98 Room Air 01/01/17 11:44 86 97/54 01/01/17 10:33 107 25 94/50 (65) 97 Nasal Cannula 01/01/17 09:44 118 19 99/54 (69) 98 Nasal Cannula 01/01/17 09:22 137 97/52 01/01/17 08:56 110 24 104/59 (74) 97 Nasal Cannula 01/01/17 08:41 115 106/53 01/01/17 08:37 121 24 115/55 (75) 97 Nasal Cannula 01/01/17 08:13 127 22 103/59 (74) 01/01/17 07:56 134 24 109/64 (79) 98 Nasal Cannula 118/64 (82) 01/01/17 07:55 98 Nasal Cannula 2.00 Physical Exam SKIN: Warm and dry. HEAD: Atraumatic. Normocephalic. EYES: Pupils equal and round. ENT: No nasal bleeding or discharge. Mucous membranes pink and moist. NECK: Trachea midline. No JVD. CARDIOVASCULAR: Regular rate and irregularly irregular rhythm RESPIRATORY: No accessory muscle use. Clear to auscultation. Breath sounds equal bilaterally. GASTROINTESTINAL: Abdomen soft, non-tender, nondistended. MUSCULOSKELETAL: Extremities without clubbing, cyanosis. No obvious deformities. +chronic LE lymphedema bilateral NEUROLOGICAL: Awake and alert. No obvious cranial nerve deficits. Normal speech. PSYCHIATRIC: Appropriate mood and affect; insight and judgment normal. Laboratory Laboratory Tests Test 01/01/17 07:54 01/01/17 13:30 01/01/17 17:40 White Blood Count 25.5 Red Blood Count 3.00 Hemoglobin 8.4 Hematocrit 25.7 Mean Corpuscular Volume 85.7 Mean Corpuscular Hemoglobin 27.9 Mean Corpuscular Hemoglobin Concent 32.6 Red Cell Distribution Width 16.4 Platelet Count 252 Mean Platelet Volume 7.4 Neutrophils (%) (Auto) 91.9 Lymphocytes (%) (Auto) 2.0 Monocytes (%) (Auto) 5.9 Eosinophils (%) (Auto) 0.0 Basophils (%) (Auto) 0.2 Neutrophils # (Auto) 23.5 Lymphocytes # (Auto) 0.5 Monocytes # (Auto) 1.5 Eosinophils # (Auto) 0.0 Basophils # (Auto) 0.0 CBC Comment AUTO DIFF Differential Comment AUTO DIFF CONFIRMED Prothrombin Time 24.8 Prothromb Time International Ratio 2.2 Activated Partial Thromboplast Time 36.9 Blood Urea Nitrogen 16 Creatinine 0.66 Random Glucose 102 Total Protein 6.2 Albumin 2.5 Calcium Level 8.1 Magnesium Level 1.3 Alkaline Phosphatase 75 Aspartate Amino Transf (AST/SGOT) 17 Alanine Aminotransferase (ALT/SGPT) 13 Total Bilirubin 0.9 Sodium Level 138 Potassium Level 3.4 Chloride Level 103 Carbon Dioxide Level 25.4 Anion Gap 10 Estimat Glomerular Filtration Rate 85 Total Creatine Kinase 22 Troponin I 0.06 0.39 Nasal Screen MRSA (PCR) MRSA NOT DETECTED (Harika Crenshaw) Result Diagram: 01/01/17 0754 01/01/17 0754 Imaging Last 48 hours Impressions Chest X-Ray 01/01/17 0747 Signed Impressions: Service Date/Time: Tuesday, January 01, 2017 08:08 - CONCLUSION: 1. Cardiomegaly. Minimal basilar atelectasis. Postoperative change as above. Dylan Olivarez MD (Harika Crenshaw) Assessment and Plan Problem List: (1) Anemia ICD Codes: D64.9 - Anemia, unspecified Status: Acute (2) Atrial fibrillation with RVR ICD Codes: I48.91 - Unspecified atrial fibrillation Status: Acute (3) Implantable cardioverter-defibrillator discharge ICD Codes: Z45.02 - Encounter for adjustment and management of automatic implantable cardiac defibrillator Status: Acute Assessment and Plan This is an 86 yo WF with atrial fibrillation, mechanical mitral valve ( anticoagulated on coumadin), cardiomyopathy (ICD in place), history of TIA and anemia who presented to ED via EMS yesterday after receiving multiple defibrillator shocks at home afib RVR- rate controlled on cardizem gtt and metoprolol. anticoagulated on warfarin, INR 2.2 cardiomyopathy- ICD in place. no history of CAD, s/p multiple defib shocks yesterday. hypomagnesemia and hypokalemia (continue repletion) troponin elevation, ECG shows ST depression laterally. no chest pain. 2D echo anemia- s/p iron infusion x 1, unclear etiology (Harika Crenshaw) Assessment and Plan VT - interrogation of device does show VT s/p defib. replete electrolytes. probable NICM. need to review outpatient records. consider lexiscan r/o ischemic trigger. elevated trop due to defib 2d echo pending - known cardiomyopathy afib RVR - wean cardizem gtt. resume BB (Ivan Lorenzo MD) Harika Crenshaw Jan 02, 2017 08:07 Ivan Lorenzo MD Jan 02, 2017 09:26
[2017-01-02] MEDS: FERROUS SULFATE 325 MG (65 MG ELEMENTAL IRON) TAB PO SCH (08:50)
[2017-01-02] MEDS: IRON SUCROSE INJ 100 MG in SODIUM CHLORIDE 0.9% INJ 100 ML IV SCH (08:51)
[2017-01-02] MEDS: DOCUSATE SODIUM 50 MG/SENNA 8.6 MG TAB PO SCH ×2 (09:00→20:54)
[2017-01-02] MEDS ORDERED: LOSARTAN 50 MG TAB PO SCH (09:00)
[2017-01-02] MEDS: SODIUM CHLORIDE 0.9% FLUSH 10 ML FLUSH IV FLUSH SCH ×2 (09:00→20:54)
--- NOTE | 2017-01-02 09:19 | HHI.PR ---
Subjective Remarks DOING OK. DAUGHTER PRESENT Objective Vitals pale heart irreg lung cta abd s/nt ext no edema Vital Signs Date Time Temp Pulse Resp B/P (MAP) Pulse Ox O2 Delivery O2 Flow Rate FiO2 01/02/17 08:49 97 Nasal Cannula 2.00 01/02/17 06:00 96 01/02/17 04:00 98.8 89 22 108/56 (73) 97 01/02/17 04:00 89 01/02/17 02:00 89 01/02/17 00:00 97 01/02/17 00:00 98.4 97 20 114/58 (76) 97 01/01/17 22:00 101 01/01/17 21:48 102 114/54 01/01/17 20:31 97 Nasal Cannula 2.00 01/01/17 20:00 98.2 92 21 101/49 (66) 96 01/01/17 20:00 92 01/01/17 18:00 84 01/01/17 16:45 98.5 104 16 102/66 95 01/01/17 16:43 98.9 92 16 103/53 01/01/17 16:00 84 01/01/17 16:00 98.5 68 16 102/54 (70) 95 01/01/17 14:00 84 01/01/17 12:46 81 24 99/54 (69) 98 Room Air 01/01/17 11:44 86 97/54 01/01/17 10:33 107 25 94/50 (65) 97 Nasal Cannula 01/01/17 09:44 118 19 99/54 (69) 98 Nasal Cannula 01/01/17 09:22 137 97/52 Result Diagram: 01/01/17 0754 01/01/17 0754 Imaging Last Impressions Chest X-Ray 01/01/17 0747 Signed Impressions: Service Date/Time: Sunday, January 01, 2017 08:08 - CONCLUSION: 1. Cardiomegaly. Minimal basilar atelectasis. Postoperative change as above. Dylan Olivarez MD A/P Problem List: (1) Atrial fibrillation with RVR ICD Codes: I48.91 - Unspecified atrial fibrillation Status: Acute Plan: Atrial Fibrillation with RVR Initial EKG reviewed and reveals Atrial Fibrillation RVR with inverted T waves leads V3- V6, EKG from 2013 also showed inverted T waves V3-V6 Patient was shocked by her defibrillator multiple time device interrogated and reveals: 9 VF zone with 9 shocks, 3 in VT- 2 zone with 6 shocks and 48 classed SVT magnesium low on admission 1.3 replaced Potassium also low on admission replaced Patient given Cardizem 20mg IV by EMS placed on cardizem and limited by blood pressure unable to tolerate her losartan and lopressor due to low bp currently on cardizem 5mg/hr and her 90s to low 100s cardiology eval today and decide on converting iv to po rate control. f/u echo. f/u repeat k and mg and replace as needed. 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 Niño outpatient Per outpatient records: Outpatient iron studies have shown a very low iron saturation of 10%. She has had extensive work-up including thyroid function testing, B12 and folate testing which was all normal. Her LDH was slightly elevated, haptoglobin was low and direct Iza test was negative. 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 reported neg stool guiac by pcp s/p 1 unit prbc 01/01 iv iron infusions ordered Hypothyroidism Continue home levothyroxine Last TSH check 12/20/16 2.040 Hyperlipidemia continue patient's home statin regiment HTN hold arb and bb for now. Leukocytosis WBC 25.5 possibly due to stress of defibrillator shock and elevated HR no other s/s of infection, afebrile, CXR reviewed and reveals cardiomegaly with bibasilar atelectasis no cough congestion or dysuria monitor for s/s in infection repeat CBC pending DVT prophylaxis patient is on Coumadin (2) Implantable cardioverter-defibrillator discharge ICD Codes: Z45.02 - Encounter for adjustment and management of automatic implantable cardiac defibrillator Status: Acute (3) Anemia ICD Codes: D64.9 - Anemia, unspecified Status: Acute (4) Cardiomyopathy ICD Codes: I42.9 - Cardiomyopathy, unspecified Status: Chronic Dilshad Cabrera MD Jan 02, 2017 09:19
[2017-01-02 09:35] LABS: BASOPHIL % 0.2 % (0.0-2.0); HEMATOCRIT 27.8 % (35.0-46.0); HEMO FLAGS DIFF FINAL; LYMPH % 1.6 % (9.0-44.0); LYMPHOCYTE # 0.4 TH/MM3 (1.0-4.8); MEAN CELL VOLUME 85.3 FL (80.0-100.0); MEAN CORPUSCULAR HEMOGLOBIN 28.3 PG (27.0-34.0); MEAN CORPUSCULAR HGB CONC 33.2 % (32.0-36.0); MONO % 4.4 % (0.0-8.0); NEUT % 93.8 % (16.0-70.0); PLATELET COUNT 224 TH/MM3 (150-450); RED BLOOD COUNT 3.25 MIL/MM3 (4.00-5.30); RED CELL DISTRIBUTION WIDTH 16.2 % (11.6-17.2); WHITE BLOOD COUNT 23.5 TH/MM3 (4.0-11.0)
[2017-01-02 09:59] LABS: BICARBONATE 26.4 MEQ/L (21.0-32.0); POTASSIUM 3.8 MEQ/L (3.5-5.1)
[2017-01-02] MEDS: POTASSIUM CHLORIDE 8 MEQ CONTROLLED RELEASE TAB PO SCH ×2 (10:33→20:54)
[2017-01-02] MEDS: FUROSEMIDE 20 MG TAB PO SCH ×2 (10:33→18:00)
[2017-01-02] MEDS: METOPROLOL TARTRATE 25 MG TAB PO SCH ×2 (10:33→20:54)
[2017-01-02 15:11] LABS: BACTERIA, URINE MANY /hpf; BLOOD, URINE SMALL (NEG); COMMENT (UR) CULTURE INDICATED; CULTURE IF INDICATED CULTURE INDICATED; GLUCOSE,URINE NEG (NEG); KETONE, URINE NEG (NEG); MUCUS URINE MANY /lpf (OCC); NITRITE,URINE NEG (NEG); PH, URINE 5.5 (5.0-8.5); SQUAMOUS EPITHELIAL CELL URINE 1 /hpf (0-5); URINE COLOR YELLOW (YELLW/STRAW)
[2017-01-02] MEDS: WARFARIN SOD 2.5 MG TAB PO SCH (16:26)
[2017-01-02] MEDS: DILTIAZEM INJ 125 MG in SODIUM CHLORIDE 0.9% INJ 100 ML IV PRN (18:13)
[2017-01-02] MEDS: ATORVASTATIN 10 MG TAB PO SCH (20:54)
[2017-01-02] MEDS: GABAPENTIN 300 MG CAP PO SCH (20:54)
[2017-01-03] VITALS (14 sets, daily range): BP systolic 122–152; BP diastolic 58–82; PULSE 64–105; RESP 16–29; TEMP 98–99.2; O2SAT 95–99
[2017-01-03] MEDS: LEVOTHYROXINE SODIUM 75 MCG TAB PO SCH (06:00)
[2017-01-03] MEDS: METOPROLOL TARTRATE 25 MG TAB PO SCH ×3 (08:09→20:57)
[2017-01-03] MEDS: FERROUS SULFATE 325 MG (65 MG ELEMENTAL IRON) TAB PO SCH (08:09)
[2017-01-03] MEDS: POTASSIUM CHLORIDE 8 MEQ CONTROLLED RELEASE TAB PO SCH ×2 (08:10→20:57)
--- NOTE | 2017-01-03 08:20 | PD.CARD.PN ---
Subjective Subjective Remarks No CP, SOB, palpitations. No further AICD discharges. Wants to go to the cardiac floor. Objective Medications Current Medications Medications (Trade) Dose Ordered Sig/Denis Route Start Time Stop Time Status Last Admin (NS Flush) 2 ml UNSCH PRN IVF 01/01/17 08:00 Diltiazem HCl 125 mg/Sodium Chloride 125 ml @ 5 mls/hr TITRATE PRN IV 01/01/17 08:00 01/02/17 18:13 (Lipitor) 10 mg HS PO 01/01/17 21:00 01/02/17 20:54 (Ferrous Sulfate) 325 mg DAILY PO 01/02/17 09:00 01/02/17 08:50 (Lasix) 20 mg BID@0900,1800 PO 01/01/17 18:00 01/02/17 10:33 (Neurontin) 300 mg HS PO 01/01/17 21:00 01/02/17 20:54 (Synthroid) 75 mcg DAILY@0600 PO 01/02/17 06:00 01/02/17 06:28 (KCl) 8 meq BID PO 01/01/17 21:00 01/02/17 20:54 (Coumadin) 1.25 mg DAILY@1600 PO 01/02/17 16:00 01/02/17 16:26 (NS Flush) 2 ml UNSCH PRN IV FLUSH 01/01/17 09:45 (NS Flush) 2 ml BID IV FLUSH 01/01/17 21:00 01/02/17 20:54 (Tylenol) 650 mg Q4H PRN PO 01/01/17 09:45 (Zofran Inj) 4 mg Q6H PRN IVP 01/01/17 09:45 (Narcan Inj) 0.4 mg UNSCH PRN IV PUSH 01/01/17 09:45 (Marisela-Colace) 1 tab BID PO 01/01/17 21:00 01/01/17 20:24 (Milk Of Magnesia Liq) 30 ml Q12H PRN PO 01/01/17 09:45 (Pill Splitter) 1 ea UNSCH PRN OTHER 01/01/17 10:00 Iron Sucrose 100 mg/Sodium Chloride 105 ml @ 105 mls/hr DAILY IV 01/01/17 12:00 01/03/17 09:59 01/02/17 08:51 (Lopressor) 25 mg Q12HR PO 01/02/17 09:30 01/02/17 20:54 Vital Signs / I&O Vital Signs Date Time Temp Pulse Resp B/P (MAP) Pulse Ox O2 Delivery O2 Flow Rate FiO2 01/03/17 06:00 95 01/03/17 04:00 78 01/03/17 04:00 99.2 78 16 142/63 (89) 98 01/03/17 02:00 83 01/03/17 00:00 71 01/03/17 00:00 98.4 71 16 122/58 (79) 99 01/02/17 22:00 74 01/02/17 21:11 89 136/62 01/02/17 21:05 97 Nasal Cannula 2.00 01/02/17 20:00 81 01/02/17 20:00 98.9 106 26 139/65 (89) 97 01/02/17 18:13 100 122/73 01/02/17 18:00 81 01/02/17 16:00 81 01/02/17 16:00 98.5 91 16 121/64 (83) 91 01/02/17 14:00 81 01/02/17 12:00 81 01/02/17 12:00 98.7 84 20 114/60 (78) 97 01/02/17 10:00 81 01/02/17 08:49 97 Nasal Cannula 2.00 I/O 01/02/17 01/02/17 01/02/17 01/03/17 01/03/17 01/03/17 07:00 15:00 23:00 07:00 15:00 23:00 Intake Total 350 ml 1785 ml Output Total 450 ml 2000 ml Balance -100 ml -215 ml Intake Oral 350 ml 1680 ml IV Total 105 ml Output Urine Total 450 ml 2000 ml # Bowel Movements 2 10 Physical Exam GEN: WDWN. SKIN: Warm and dry. HEAD: Atraumatic. Normocephalic. NECK: Trachea midline. No JVD. CARDIOVASCULAR: Slightly tachy rate and irregularly irregular rhythm. Mechanical murmur. RESPIRATORY: No accessory muscle use. Clear to auscultation. Breath sounds equal bilaterally. MUSCULOSKELETAL: Extremities without clubbing, cyanosis. No obvious deformities. +chronic LE lymphedema bilateral NEUROLOGICAL: Awake and alert. No obvious cranial nerve deficits. Normal speech. PSYCHIATRIC: Appropriate mood and affect; insight and judgment normal. Laboratory Laboratory Tests Test 01/02/17 09:26 01/02/17 14:30 01/03/17 06:55 White Blood Count 23.5 TH/MM3 Red Blood Count 3.25 MIL/MM3 Hemoglobin 9.2 GM/DL Hematocrit 27.8 % Mean Corpuscular Volume 85.3 FL Mean Corpuscular Hemoglobin 28.3 PG Mean Corpuscular Hemoglobin Concent 33.2 % Red Cell Distribution Width 16.2 % Platelet Count 224 TH/MM3 Mean Platelet Volume 7.5 FL Neutrophils (%) (Auto) 93.8 % Lymphocytes (%) (Auto) 1.6 % Monocytes (%) (Auto) 4.4 % Eosinophils (%) (Auto) 0.0 % Basophils (%) (Auto) 0.2 % Neutrophils # (Auto) 22.0 TH/MM3 Lymphocytes # (Auto) 0.4 TH/MM3 Monocytes # (Auto) 1.0 TH/MM3 Eosinophils # (Auto) 0.0 TH/MM3 Basophils # (Auto) 0.0 TH/MM3 CBC Comment DIFF FINAL Differential Comment Blood Urea Nitrogen 18 MG/DL Creatinine 0.51 MG/DL Random Glucose 144 MG/DL Calcium Level 8.5 MG/DL Sodium Level 137 MEQ/L Potassium Level 3.8 MEQ/L Chloride Level 104 MEQ/L Carbon Dioxide Level 26.4 MEQ/L Anion Gap 7 MEQ/L Estimat Glomerular Filtration Rate 115 ML/MIN Magnesium Level 2.2 MG/DL Urine Color YELLOW Urine Turbidity HAZY Urine pH 5.5 Urine Specific [place] 1.019 Urine Protein TRACE mg/dL Urine Glucose (UA) NEG mg/dL Urine Ketones NEG mg/dL Urine Occult Blood SMALL Urine Nitrite NEG Urine Bilirubin NEG Urine Urobilinogen LESS THAN 2.0 MG/DL Urine Leukocyte Esterase LARGE Urine RBC 3 /hpf Urine WBC 85 /hpf Urine WBC Clumps MANY Urine Squamous Epithelial Cells 1 /hpf Urine Bacteria MANY /hpf Urine Mucus MANY /lpf Microscopic Urinalysis Comment CULTURE INDICATED Assessment and Plan Problem List: (1) Anemia ICD Codes: D64.9 - Anemia, unspecified Status: Acute (2) Atrial fibrillation with RVR ICD Codes: I48.91 - Unspecified atrial fibrillation Status: Acute (3) Implantable cardioverter-defibrillator discharge ICD Codes: Z45.02 - Encounter for adjustment and management of automatic implantable cardiac defibrillator Status: Acute Assessment and Plan This is an 86 yo WF with atrial fibrillation, mechanical mitral valve ( anticoagulated on coumadin), cardiomyopathy (ICD in place), history of TIA and anemia who presented to ED via EMS yesterday after receiving multiple defibrillator shocks at home afib RVR- rate controlled on cardizem gtt and metoprolol. anticoagulated on warfarin, INR 2.2. Wean cardizem gtt. cardiomyopathy: ICD in place. no history of CAD, s/p multiple defib shocks prior to admission. hypomagnesemia and hypokalemia corrected. Troponin elevation 2/[address] depression laterally. -Consider ischemia eval w/ lexiscan vs cath. -2D echo Normocytic anemia: following with hematology as OP who recommended heart valve eval. Echo pending. VT: interrogation of device does show VT s/p defib. replete electrolytes. probable NICM. need to review outpatient records. consider eval to r/o ischemic trigger. elevated trop due to defib Dallin Marquez Jan 03, 2017 08:19
[2017-01-03] MEDS: FUROSEMIDE 20 MG TAB PO SCH ×2 (08:23→18:15)
[2017-01-03] MEDS: IRON SUCROSE INJ 100 MG in SODIUM CHLORIDE 0.9% INJ 100 ML IV SCH (08:23)
[2017-01-03] MEDS: SODIUM CHLORIDE 0.9% FLUSH 10 ML FLUSH IV FLUSH SCH ×2 (08:24→20:54)
[2017-01-03] MEDS: DOCUSATE SODIUM 50 MG/SENNA 8.6 MG TAB PO SCH ×2 (08:25→20:56)
[2017-01-03] MEDS ORDERED: DIGOXIN 0.5 MG/2 ML VIAL IVS STA (08:43)
--- NOTE | 2017-01-03 09:24 | HHI.PR ---
Subjective Remarks no new complaints. has chronic loose stools urinating frequently but no dysuria no sob Objective Vitals heart irreg lung cta abd s/nt ext leg wraps bilaterally Vital Signs Date Time Temp Pulse Resp B/P (MAP) Pulse Ox O2 Delivery O2 Flow Rate FiO2 01/03/17 08:07 95 Nasal Cannula 1.50 01/03/17 06:00 95 01/03/17 04:00 78 01/03/17 04:00 99.2 78 16 142/63 (89) 98 01/03/17 02:00 83 01/03/17 00:00 71 01/03/17 00:00 98.4 71 16 122/58 (79) 99 01/02/17 22:00 74 01/02/17 21:11 89 136/62 01/02/17 21:05 97 Nasal Cannula 2.00 01/02/17 20:00 81 01/02/17 20:00 98.9 106 26 139/65 (89) 97 01/02/17 18:13 100 122/73 01/02/17 18:00 81 01/02/17 16:00 81 01/02/17 16:00 98.5 91 16 121/64 (83) 91 01/02/17 14:00 81 01/02/17 12:00 81 01/02/17 12:00 98.7 84 20 114/60 (78) 97 01/02/17 10:00 81 Result Diagram: 01/02/17 0901/02/17 0926 Imaging Last Impressions Chest X-Ray 01/01/17 0747 Signed Impressions: Service Date/Time: Sunday, January 01, 2017 08:08 - CONCLUSION: 1. Cardiomegaly. Minimal basilar atelectasis. Postoperative change as above. Dylan Olivarez MD A/P Problem List: (1) Atrial fibrillation with RVR ICD Codes: I48.91 - Unspecified atrial fibrillation Status: Acute Plan: Atrial Fibrillation with RVR Initial EKG reviewed and reveals Atrial Fibrillation RVR with inverted T waves leads V3- V6, EKG from 2013 also showed inverted T waves V3-V6 Patient was shocked by her defibrillator multiple time device interrogated and reveals: 9 VF zone with 9 shocks, 3 in VT- 2 zone with 6 shocks and 48 classed SVT magnesium low on admission 1.3 replaced Potassium also low on admission replaced Patient given Cardizem 20mg IV by EMS placed on cardizem and limited by blood pressure still on cardizem gtt. low dose bb added yesterday.... bb increased and given dig per cardiology...stop cardizem no stress recc. echo pending k and mg replaced. recheck. 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 Niño outpatient Per outpatient records: Outpatient iron studies have shown a very low iron saturation of 10%. She has had extensive work-up including thyroid function testing, B12 and folate testing which was all normal. Her LDH was slightly elevated, haptoglobin was low and direct Iza test was negative. 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 reported neg stool guiac by pcp s/p 1 unit prbc 01/01 iv iron infusions ordered cardiology reordered the hemolysis w/up Hypothyroidism Continue home levothyroxine Last TSH check 12/20/16 2.040 Hyperlipidemia continue patient's home statin regiment HTN hold arb and bb for now. Leukocytosis WBC 25.5 possibly due to stress of defibrillator shock and elevated HR possible uti. f/u urine cx. f/u stool studies await repeat cbc...and decide on abx. (2) Implantable cardioverter-defibrillator discharge ICD Codes: Z45.02 - Encounter for adjustment and management of automatic implantable cardiac defibrillator Status: Acute (3) Anemia ICD Codes: D64.9 - Anemia, unspecified Status: Acute (4) Cardiomyopathy ICD Codes: I42.9 - Cardiomyopathy, unspecified Status: Chronic Dilshad Cabrera MD Jan 03, 2017 09:24
[2017-01-03 10:25] LABS: C. DIFF EPI 027 PRESUMPTIVE NEGATIVE (NEGATIVE)
[2017-01-03 11:11] LABS: AUTOMATED NEUTROPHIL # 20.9 TH/MM3 (1.8-7.7); BASOPHIL % 0.2 % (0.0-2.0); EOSINOPHIL % 0.1 % (0.0-4.0); HEMATOCRIT 29.9 % (35.0-46.0); HEMO FLAGS DIFF FINAL; LYMPHOCYTE # 0.5 TH/MM3 (1.0-4.8); MEAN CELL VOLUME 86.1 FL (80.0-100.0); MEAN CORPUSCULAR HEMOGLOBIN 28.2 PG (27.0-34.0); MEAN CORPUSCULAR HGB CONC 32.7 % (32.0-36.0); MONO % 4.2 % (0.0-8.0); NEUT % 93.5 % (16.0-70.0); PLATELET COUNT 274 TH/MM3 (150-450); RED BLOOD COUNT 3.48 MIL/MM3 (4.00-5.30); RED CELL DISTRIBUTION WIDTH 16.4 % (11.6-17.2); WHITE BLOOD COUNT 22.3 TH/MM3 (4.0-11.0)
[2017-01-03 11:39] LABS: BICARBONATE 26.9 MEQ/L (21.0-32.0); POTASSIUM 4.2 MEQ/L (3.5-5.1)
[2017-01-03] MEDS: cefTRIAXone INJ 1,000 MG in SODIUM CHLORIDE 0.9% INJ 100 ML IV SCH (13:00)
[2017-01-03 13:42] LABS: INDIRECT BILIRUBIN 0.4 MG/DL (0.0-0.8); TOTAL BILIRUBIN ADULT 0.6 MG/DL (0.2-1.0)
[2017-01-03 15:35] LABS: INTERNATIONAL NORMALIZED RATIO 2.8 RATIO; PROTHROMBIN TIME - PATIENT 31.8 SEC (9.8-11.6)
[2017-01-03] MEDS: WARFARIN SOD 2.5 MG TAB PO SCH (16:43)
[2017-01-03] MEDS: ATORVASTATIN 10 MG TAB PO SCH (20:56)
[2017-01-03] MEDS: GABAPENTIN 300 MG CAP PO SCH (20:56)
[2017-01-04] VITALS: BP 127/60; PULSE 88; RESP 18; TEMP 97.6; O2SAT 96
[2017-01-04 04:00] VITALS: BP 136/74; PULSE 63; RESP 18; TEMP 97.3; O2SAT 97
[2017-01-04] MEDS: LEVOTHYROXINE SODIUM 75 MCG TAB PO SCH (06:01)
[2017-01-04] MEDS: SODIUM CHLORIDE 0.9% FLUSH 10 ML FLUSH IV FLUSH SCH (07:22)
[2017-01-04 07:25] LABS: AUTOMATED NEUTROPHIL # 15.1 TH/MM3 (1.8-7.7); BASOPHIL % 0.1 % (0.0-2.0); EOSINOPHIL % 0.1 % (0.0-4.0); HEMATOCRIT 30.3 % (35.0-46.0); HEMO FLAGS DIFF FINAL; LYMPH % 3.1 % (9.0-44.0); LYMPHOCYTE # 0.5 TH/MM3 (1.0-4.8); MEAN CELL VOLUME 85.7 FL (80.0-100.0); MEAN CORPUSCULAR HEMOGLOBIN 27.8 PG (27.0-34.0); MEAN CORPUSCULAR HGB CONC 32.4 % (32.0-36.0); MONO % 5.5 % (0.0-8.0); NEUT % 91.2 % (16.0-70.0); PLATELET COUNT 269 TH/MM3 (150-450); PROTHROMBIN TIME - PATIENT 34.6 SEC (9.8-11.6); RED BLOOD COUNT 3.53 MIL/MM3 (4.00-5.30); RED CELL DISTRIBUTION WIDTH 16.1 % (11.6-17.2); WHITE BLOOD COUNT 16.6 TH/MM3 (4.0-11.0)
--- NOTE | 2017-01-04 08:02 | PD.CARD.PN ---
Subjective Subjective Remarks No issues overnight. Blood pressure and heart rate are better. No CP, SOB, palpitations. No further AICD discharges. (Dallin Marquez) Objective Medications Current Medications Medications (Trade) Dose Ordered Sig/Denis Route Start Time Stop Time Status Last Admin (NS Flush) 2 ml UNSCH PRN IVF 01/01/17 08:00 Diltiazem HCl 125 mg/Sodium Chloride 125 ml @ 5 mls/hr TITRATE PRN IV 01/01/17 08:00 01/02/17 18:13 (Lipitor) 10 mg HS PO 01/01/17 21:00 01/03/17 20:56 (Ferrous Sulfate) 325 mg DAILY PO 01/02/17 09:00 01/03/17 08:09 (Lasix) 20 mg BID@0900,1800 PO 01/01/17 18:00 01/03/17 18:15 (Neurontin) 300 mg HS PO 01/01/17 21:00 01/03/17 20:56 (Synthroid) 75 mcg DAILY@0600 PO 01/02/17 06:00 01/04/17 06:01 (KCl) 8 meq BID PO 01/01/17 21:00 01/03/17 20:57 (Coumadin) 1.25 mg DAILY@1600 PO 01/02/17 16:00 01/03/17 16:43 (NS Flush) 2 ml UNSCH PRN IV FLUSH 01/01/17 09:45 (NS Flush) 2 ml BID IV FLUSH 01/01/17 21:00 01/04/17 07:22 (Tylenol) 650 mg Q4H PRN PO 01/01/17 09:45 (Zofran Inj) 4 mg Q6H PRN IVP 01/01/17 09:45 (Narcan Inj) 0.4 mg UNSCH PRN IV PUSH 01/01/17 09:45 (Marisela-Colace) 1 tab BID PO 01/01/17 21:00 01/03/17 20:56 (Milk Of Magnesia Liq) 30 ml Q12H PRN PO 01/01/17 09:45 (Pill Splitter) 1 ea UNSCH PRN OTHER 01/01/17 10:00 (Lopressor) 50 mg Q12HR PO 01/03/17 09:00 01/03/17 20:57 (Lanoxin) 0.125 mg DAILY PO 01/04/17 09:00 Ceftriaxone Sodium 1000 mg/ Sodium Chloride 100 ml @ 200 mls/hr Q24H IV 01/03/17 13:00 01/03/17 13:00 Vital Signs / I&O Vital Signs Date Time Temp Pulse Resp B/P (MAP) Pulse Ox O2 Delivery O2 Flow Rate FiO2 01/04/17 04:00 97.3 63 18 136/74 (94) 97 01/04/17 00:00 Nasal Cannula 2.00 01/04/17 00:00 97.6 88 18 127/60 (82) 96 01/03/17 20:00 98.0 64 18 126/63 (84) 97 01/03/17 20:00 Nasal Cannula 2.00 01/03/17 19:49 86 01/03/17 18:00 85 27 147/65 (92) 97 01/03/17 17:00 73 24 152/69 (96) 97 01/03/17 16:30 80 27 138/65 (89) 96 01/03/17 16:00 99.0 72 29 150/67 (94) 96 01/03/17 15:30 73 26 152/69 (96) 97 01/03/17 12:00 98.1 73 20 149/70 (96) 98 01/03/17 08:07 95 Nasal Cannula 1.50 01/03/17 08:00 98.7 105 20 137/82 (100) 96 I/O 01/03/17 01/03/17 01/03/17 01/04/17 01/04/17 01/04/17 07:00 15:00 23:00 07:00 15:00 23:00 Intake Total 720 ml 240 ml Balance 720 ml 240 ml Intake Oral 400 ml 240 ml IV Total 320 ml # Voids 7 5 # Bowel Movements 3 1 Physical Exam GEN: WDWN. SKIN: Warm and dry. HEAD: Atraumatic. Normocephalic. NECK: Trachea midline. No JVD. CARDIOVASCULAR: Irregular rate and irregular rhythm with PVCs. Mechanical murmur. RESPIRATORY: No accessory muscle use. Clear to auscultation. Breath sounds equal bilaterally. MUSCULOSKELETAL: Extremities without clubbing, cyanosis. No obvious deformities. +chronic LE lymphedema bilateral NEUROLOGICAL: Awake and alert. No obvious cranial nerve deficits. Normal speech. PSYCHIATRIC: Appropriate mood and affect; insight and judgment normal. Laboratory Laboratory Tests Test 01/03/17 10:55 01/03/17 14:15 01/04/17 06:33 White Blood Count 22.3 TH/MM3 16.6 TH/MM3 Red Blood Count 3.48 MIL/MM3 3.53 MIL/MM3 Hemoglobin 9.8 GM/DL 9.8 GM/DL Hematocrit 29.9 % 30.3 % Mean Corpuscular Volume 86.1 FL 85.7 FL Mean Corpuscular Hemoglobin 28.2 PG 27.8 PG Mean Corpuscular Hemoglobin Concent 32.7 % 32.4 % Red Cell Distribution Width 16.4 % 16.1 % Platelet Count 274 TH/MM3 269 TH/MM3 Mean Platelet Volume 7.8 FL 7.6 FL Neutrophils (%) (Auto) 93.5 % 91.2 % Lymphocytes (%) (Auto) 2.0 % 3.1 % Monocytes (%) (Auto) 4.2 % 5.5 % Eosinophils (%) (Auto) 0.1 % 0.1 % Basophils (%) (Auto) 0.2 % 0.1 % Neutrophils # (Auto) 20.9 TH/MM3 15.1 TH/MM3 Lymphocytes # (Auto) 0.5 TH/MM3 0.5 TH/MM3 Monocytes # (Auto) 0.9 TH/MM3 0.9 TH/MM3 Eosinophils # (Auto) 0.0 TH/MM3 0.0 TH/MM3 Basophils # (Auto) 0.0 TH/MM3 0.0 TH/MM3 CBC Comment DIFF FINAL DIFF FINAL Differential Comment Haptoglobin 182 MG/DL Blood Urea Nitrogen 17 MG/DL Creatinine 0.53 MG/DL Random Glucose 117 MG/DL Calcium Level 8.7 MG/DL Magnesium Level 2.0 MG/DL Sodium Level 138 MEQ/L Potassium Level 4.2 MEQ/L Chloride Level 104 MEQ/L Carbon Dioxide Level 26.9 MEQ/L Anion Gap 7 MEQ/L Estimat Glomerular Filtration Rate 110 ML/MIN Total Bilirubin 0.6 MG/DL Direct Bilirubin 0.2 MG/DL Indirect Bilirubin 0.4 MG/DL Lactate Dehydrogenase 293 U/L Prothrombin Time 31.8 SEC 34.6 SEC Prothromb Time International Ratio 2.8 RATIO 3.0 RATIO Imaging Last Impressions Chest X-Ray 01/01/17 4523 Signed Impressions: Service Date/Time: Sunday, January 01, 2017 08:08 - CONCLUSION: 1. Cardiomegaly. Minimal basilar atelectasis. Postoperative change as above. Dylan Olivarez MD (Dallin Marquez) Assessment and Plan Problem List: (1) Anemia ICD Codes: D64.9 - Anemia, unspecified Status: Acute (2) Atrial fibrillation with RVR ICD Codes: I48.91 - Unspecified atrial fibrillation Status: Acute (3) Implantable cardioverter-defibrillator discharge ICD Codes: Z45.02 - Encounter for adjustment and management of automatic implantable cardiac defibrillator Status: Acute Assessment and Plan This is an 86 yo WF with atrial fibrillation, mechanical mitral valve ( anticoagulated on coumadin), cardiomyopathy (ICD in place), history of TIA and anemia who presented after receiving multiple defibrillator shocks at home afib RVR: rate better controlled on digoxin and metoprolol. anticoagulated on warfarin, INR 2.2. Weaning cardizem gtt. digoxin level pending. cardiomyopathy, reportedly nonischemic: ICD in place. no history of CAD, s/p multiple defib shocks prior to admission. hypomagnesemia and hypokalemia corrected. Troponin elevation 2/[address] depression laterally. -Patient and family declined ischemia eval at this time. -2D echo Normocytic anemia: following with hematology as OP who recommended evaluation for possible mitral valve hemolysis. Checked haptoglobin, LDH, indirect bilirubin. Echo pending. VT: interrogation of device showed VT s/p defib. Patient with significant hypokalemia and hypomagnesemia that time, possibly due to infection. Continue aggressive electrolyte replacement. probable NICM. need to review outpatient records. consider eval to r/o ischemic trigger. elevated trop due to defib. (Dallin Marquez) Assessment and Plan agree with above hemolysis panel suggests against mitral valve hemolysis for normocytic anemia no further VT elevated troponin - secondary to defibs. NICM DC home FU dr frazier (Ivan Lorenzo MD) Dallin Marquez Jan 04, 2017 08:02 Ivan Lorenzo MD Jan 04, 2017 10:43
[2017-01-04 08:04] VITALS: BP 151/70; PULSE 84; RESP 19; TEMP 97.8; O2SAT 95
[2017-01-04] MEDS: POTASSIUM CHLORIDE 8 MEQ CONTROLLED RELEASE TAB PO SCH (08:26)
[2017-01-04] MEDS: METOPROLOL TARTRATE 25 MG TAB PO SCH (08:26)
[2017-01-04] MEDS: FERROUS SULFATE 325 MG (65 MG ELEMENTAL IRON) TAB PO SCH (08:26)
[2017-01-04] MEDS: FUROSEMIDE 20 MG TAB PO SCH (08:29)
[2017-01-04] MEDS: DOCUSATE SODIUM 50 MG/SENNA 8.6 MG TAB PO SCH (08:29)
--- NOTE | 2017-01-04 08:54 | HHI.PR ---
Subjective Remarks feels ok . no new complaints Objective Vitals heart irreg lung cta abd s/nt ext no edema Vital Signs Date Time Temp Pulse Resp B/P (MAP) Pulse Ox O2 Delivery O2 Flow Rate FiO2 01/04/17 04:00 97.3 63 18 136/74 (94) 97 01/04/17 00:00 Nasal Cannula 2.00 01/04/17 00:00 97.6 88 18 127/60 (82) 96 01/03/17 20:00 98.0 64 18 126/63 (84) 97 01/03/17 20:00 Nasal Cannula 2.00 01/03/17 19:49 86 01/03/17 18:00 85 27 147/65 (92) 97 01/03/17 17:00 73 24 152/69 (96) 97 01/03/17 16:30 80 27 138/65 (89) 96 01/03/17 16:00 99.0 72 29 150/67 (94) 96 01/03/17 15:30 73 26 152/69 (96) 97 01/03/17 12:00 98.1 73 20 149/70 (96) 98 Result Diagram: 01/04/17 0633 01/03/17 1055 Imaging Last Impressions Chest X-Ray 01/01/17 0747 Signed Impressions: Service Date/Time: Sunday, January 01, 2017 08:08 - CONCLUSION: 1. Cardiomegaly. Minimal basilar atelectasis. Postoperative change as above. Dylan Olivarez MD A/P Problem List: (1) Atrial fibrillation with RVR ICD Codes: I48.91 - Unspecified atrial fibrillation Status: Acute Plan: Atrial Fibrillation with RVR Initial EKG reviewed and reveals Atrial Fibrillation RVR with inverted T waves leads V3- V6, EKG from 2013 also showed inverted T waves V3-V6 Patient was shocked by her defibrillator multiple time device interrogated and reveals: 9 VF zone with 9 shocks, 3 in VT- 2 zone with 6 shocks and 48 classed SVT magnesium low on admission 1.3 replaced Potassium also low on admission replaced Patient given Cardizem 20mg IV by EMS placed on cardizem and limited by blood pressure weaned off cardizem gtt now on po bb and dig lytes replaced echo pending ambulate to assess hr control d/c when ok with cardiology will arrange hhc/pt...monitor her inr while on abx for uti Anemia- 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 Niño outpatient Per outpatient records: Outpatient iron studies have shown a very low iron saturation of 10%. She has had extensive work-up including thyroid function testing, B12 and folate testing which was all normal. Her LDH was slightly elevated, haptoglobin was low and direct Iza test was negative. 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 reported neg stool guiac by pcp s/p 1 unit prbc 01/01 iv iron infusions ordered cardiology reordered the hemolysis w/up pt follows with Dr Niño Hypothyroidism Continue home levothyroxine Last TSH check 12/20/16 2.040 Hyperlipidemia continue patient's home statin regiment HTN hold arb for now. Leukocytosis WBC 25.5 possibly due to stress of defibrillator shock and elevated HR gnr uti..wbc trending down. on rocephin. f/u cx. (2) Implantable cardioverter-defibrillator discharge ICD Codes: Z45.02 - Encounter for adjustment and management of automatic implantable cardiac defibrillator Status: Acute (3) Anemia ICD Codes: D64.9 - Anemia, unspecified Status: Acute (4) Cardiomyopathy ICD Codes: I42.9 - Cardiomyopathy, unspecified Status: Chronic Dilshad Cabrera MD Jan 04, 2017 08:54
[2017-01-04] MEDS ORDERED: DIGOXIN 0.125 MG TAB PO SCH (09:00)
[2017-01-04] MEDS ORDERED: IRON SUCROSE INJ 100 MG in SODIUM CHLORIDE 0.9% INJ 100 ML IV ONE (10:00)
[2017-01-04 12:04] VITALS: BP 115/58; PULSE 66; RESP 19; TEMP 97.7; O2SAT 95
[2017-01-04] MEDS ORDERED: DIGO0.12 PO (12:43)
[2017-01-04] MEDS ORDERED: METO25TA3 PO (12:43)
[2017-01-04] MEDS ORDERED: CIPR250T52 PO (12:43)
--- NOTE | 2017-01-04 12:43 | HHI.DCPOC ---
Discharge Care Plan Diagnosis: (1) UTI (urinary tract infection) (2) Cardiomyopathy (3) Implantable cardioverter-defibrillator discharge (4) Atrial fibrillation with RVR (5) Anemia Goals to Promote Your Health * To prevent worsening of your condition and complications * To maintain your health at the optimal level Directions to Meet Your Goals Take your medications as prescribed Follow your dietary instruction Follow activity as directed Keep your appointments as scheduled Take your immunizations and boosters as scheduled If your symptoms worsen call your PCP, if no PCP go to Urgent Care Center or Emergency Room Smoking is Dangerous to Your Health. Avoid second hand smoke Call the 24-hour hour crisis hotline for domestic abuse at Dilshad Cabrera MD Jan 04, 2017 12:43
--- NOTE | 2017-01-04 12:48 | HHI.FF ---
Face to Face Verification Diagnosis: (1) Atrial fibrillation with RVR (2) Implantable cardioverter-defibrillator discharge (3) Cardiomyopathy (4) Anemia (5) UTI (urinary tract infection) Physical Therapy Order: Evaluate and Treat, Improve ambulation Home Health Nursing Order: Medical education Signs/symptoms of disease process Medication education-adverse effect Nursing assessment with vital signs Instructions: check inr / and 01/10..her gear keeper office dr Kristofer Foster with results and get instruction to hold or continue coumadin. I would hold coumadin if inr over 3. Can also notify pcp dr Adelfo Bowen with results (note pt is on cipro and worried about drug interaction). Last dose of cipro on 01/09 I have seen patient Manasa Franks on 01/04/17. My clinical findings support the need for the requested home health care services because: Deconditioned w/ increased weakness I certify that my clinical findings support that this patient is homebound because: Unsteady gait/balance Unsafe to leave home unassisted Dilshad Cabrera MD Jan 04, 2017 12:48
--- NOTE | 2017-01-04 12:53 | HHI.DS ---
Discharge Summary Admission Date Jan 01, 2017 at 09:34 Discharge Date: Jan 04, 2017 Admitting Diagnosis afib with rvr, discharge of defibrillator, anemia (1) Atrial fibrillation with RVR Diagnosis: Principal ICD Codes: I48.91 - Unspecified atrial fibrillation Status: Acute (2) Implantable cardioverter-defibrillator discharge Diagnosis: Principal ICD Codes: Z45.02 - Encounter for adjustment and management of automatic implantable cardiac defibrillator Status: Acute (3) Anemia Diagnosis: Principal ICD Codes: D64.9 - Anemia, unspecified Status: Acute (4) Cardiomyopathy Diagnosis: Secondary ICD Codes: I42.9 - Cardiomyopathy, unspecified Status: Chronic (5) UTI (urinary tract infection) Diagnosis: Principal ICD Codes: N39.0 - Urinary tract infection, site not specified Brief History This is a 86 year old female patient with a past medical history which includes : Iron deficiency anemia, atrial fibrillation; currently on Coumadin, hyperlipidemia, HTN, defibrillator, mechanical mitral valve, cardiomyopathy with systolic CHF, AICD, RA and TIA. Patient reports that she awoke in her normal state of kandis sat down before breakfast and then experienced multiple shocks from her defibrillator. Patient reports feeling 3 maybe 4 shocks at home. Prior to shocks patient felt, "irritable stomach." Patient did not recall feeling palpitations. Also denies feeling dizzy or lightheaded. Per ER documentation: EMS reported her rate was in the 160s to 180s. The paramedics say they witnessed the defibrillator firing at least 2 times. They administered 20 mg of diltiazem which brought her rate down into the 120s 130s. Patient denies fever, chills, sore throat, dysuria, shortness of breath or cough. Patient was started on iron and folic acid about two weeks ago. Other than the addition of iron and folic acid no other changes in medications recently. CBC/BMP: 01/04/17 0633 01/03/17 1055 Significant Findings Laboratory Tests Test 01/01/17 13:30 01/01/17 17:40 01/02/17 09:26 01/02/17 14:30 Troponin I 0.39 NG/ML (0.02-0.05) White Blood Count 23.5 TH/MM3 (4.0-11.0) Red Blood Count 3.25 MIL/MM3 (4.00-5.30) Hemoglobin 9.2 GM/DL (11.6-15.3) Hematocrit 27.8 % (35.0-46.0) Neutrophils (%) (Auto) 93.8 % (16.0-70.0) Lymphocytes (%) (Auto) 1.6 % (9.0-44.0) Neutrophils # (Auto) 22.0 TH/MM3 (1.8-7.7) Lymphocytes # (Auto) 0.4 TH/MM3 (1.0-4.8) Monocytes # (Auto) 1.0 TH/MM3 (0-0.9) Random Glucose 144 MG/DL (74-106) Urine Turbidity HAZY (CLEAR) Urine Occult Blood SMALL (NEG) Urine Leukocyte Esterase LARGE (NEG) Urine WBC 85 /hpf (0-5) Urine WBC Clumps MANY (NONE) Urine Bacteria MANY /hpf (NONE) Urine Mucus MANY /lpf (OCC) Test 01/03/17 06:55 01/03/17 10:55 01/03/17 14:15 01/04/17 06:33 White Blood Count 22.3 TH/MM3 (4.0-11.0) 16.6 TH/MM3 (4.0-11.0) Red Blood Count 3.48 MIL/MM3 (4.00-5.30) 3.53 MIL/MM3 (4.00-5.30) Hemoglobin 9.8 GM/DL (11.6-15.3) 9.8 GM/DL (11.6-15.3) Hematocrit 29.9 % (35.0-46.0) 30.3 % (35.0-46.0) Neutrophils (%) (Auto) 93.5 % (16.0-70.0) 91.2 % (16.0-70.0) Lymphocytes (%) (Auto) 2.0 % (9.0-44.0) 3.1 % (9.0-44.0) Neutrophils # (Auto) 20.9 TH/MM3 (1.8-7.7) 15.1 TH/MM3 (1.8-7.7) Lymphocytes # (Auto) 0.5 TH/MM3 (1.0-4.8) 0.5 TH/MM3 (1.0-4.8) Random Glucose 117 MG/DL (74-106) Lactate Dehydrogenase 293 U/L (84-246) Prothrombin Time 31.8 SEC (9.8-11.6) 34.6 SEC (9.8-11.6) Digoxin Level 0.5 NG/ML (0.8-2.0) Hospital Course (1) Atrial fibrillation with RVR Atrial Fibrillation with RVR Initial EKG reviewed and reveals Atrial Fibrillation RVR with inverted T waves leads V3- V6, EKG from 2014 also showed inverted T waves V3-V6 Patient was shocked by her defibrillator multiple time device interrogated and reveals: 9 VF zone with 9 shocks, 3 in VT- 2 zone with 6 shocks and 48 classed SVT magnesium low on admission 1.3 replaced Potassium also low on admission replaced Patient given Cardizem 20mg IV by EMS placed on cardizem and limited by blood pressure weaned off cardizem gtt now on po bb and dig lytes replaced echo pending ambulated to assess hr control and doing well. cardiology ok with d/c...f/u echo in office also C to check inr and notify cardiology with results..concern for abx interaction. d/c home today. 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 Niño outpatient Per outpatient records: Outpatient iron studies have shown a very low iron saturation of 10%. She has had extensive work-up including thyroid function testing, B12 and folate testing which was all normal. Her LDH was slightly elevated, haptoglobin was low and direct Iza test was negative. 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 reported neg stool guiac by pcp s/p 1 unit prbc 01/01 iv iron infusions ordered cardiology reordered the hemolysis w/up pt follows with Dr Niño Hypothyroidism Continue home levothyroxine Last TSH check 12/20/16 2.040 Hyperlipidemia continue patient's home statin regiment HTN hold arb for now. Leukocytosis WBC 25.5 possibly due to stress of defibrillator shock and elevated HR gnr uti..wbc trending down. on rocephin. f/u cx... klebsiella...d/c on cipro (2) Implantable cardioverter-defibrillator discharge ICD Codes: Z45.02 - Encounter for adjustment and management of automatic implantable cardiac defibrillator Status: Acute (3) Anemia ICD Codes: D64.9 - Anemia, unspecified Status: Acute (4) Cardiomyopathy ICD Codes: I42.9 - Cardiomyopathy, unspecified Status: Chronic Dilshad Cabrera MD Jan 04, 2017 08:54 Pt Condition on Discharge: Stable Discharge Disposition: Disch w/ Home Health Serv Discharge Instructions DIET: Follow Instructions for: Heart Healthy Diet Activities you can perform: Regular-No Restrictions Follow up Referrals: Cardiology - 2 Weeks @ [facility] Cardiology with Kristofer Foster PCP Follow-up - [address] aurelio garcia New Medications: Ciprofloxacin (Cipro) 250 Mg Tab 250 MG PO BID for Infection for 5 Days, #10 TAB 0 Refills Digoxin (Digoxin) 0.125 Mg Tab 0.125 MG PO DAILY for afib, #30 TAB 3 Refills Metoprolol Tartrate (Metoprolol Tartrate) 25 Mg Tab 50 MG PO Q12HR for afib, #60 TAB 3 Refills Continued Medications: Atorvastatin (Atorvastatin) 10 Mg Tab 10 MG PO HS for Cholesterol Management, #30 TAB 0 Refills Coenzyme Q10 (Ubidecarenone) (Coq-10) 50 Mg Cap 200 MG PO DAILY Ferrous Sulfate (Ferrous Sulfate) 325 Mg (65 Mg Iron) Tablet 325 MG PO DAILY for Nutritional Supplement, #30 TAB 0 Refills Folic Acid (Folic Acid) 0.4 Mg Tab 1 MG PO DAILY for Nutritional Supplement, TAB 0 Refills Furosemide (Furosemide) 20 Mg Tab 20 MG PO BID, #60 TAB 0 Refills Gabapentin (Gabapentin) 300 Mg Cap 300 MG PO HS, #30 CAP 0 Refills Levothyroxine (Levothyroxine) 75 Mcg Tab 75 MCG PO DAILY for Thyroid, #30 TAB 0 Refills Losartan (Losartan) 50 Mg Tab 50 MG PO DAILY for Blood Pressure Management, #30 TAB 0 Refills Multiple Vitamins W/ Minerals (Ocuvite Adult 50+) 1 Cap 1 CAP PO DAILY for Nutritional Supplement, CAP 0 Refills Multivit with Iron,Minerals (Centravites 50 Plus) 1 Each Tablet 1 TAB PO DAILY Potassium Chloride ER (K-Tab) 8 Meq Tab 8 MEQ PO BID for Electrolyte Replacement, #60 TAB 0 Refills Warfarin (Warfarin) 2.5 Mg Tab 1.25 MG PO DAILY for Blood Clot Prevention, #30 TAB 0 Refills Discontinued Medications: Metoprolol Tartrate (Metoprolol Tartrate) 25 Mg Tab 75 MG PO BID, #60 TAB 0 Refills Dilshad Cabrera MD Jan 04, 2017 12:53
[2017-01-04] MEDS: cefTRIAXone INJ 1,000 MG in SODIUM CHLORIDE 0.9% INJ 100 ML IV SCH (13:32)
--- NOTE | 2017-01-05 10:20 | ECHRPT ---
Indication: CARDIOMYOPATHY CONCLUSIONS Normal left ventricular size. Wall thickness is normal. The left ventricular systolic function is low normal with an estimated ejection fraction in the rang e of 50- 55%. The left atrial size is moderately dilated. The right atrial size is [id number] dilated. Mild mitral valve regurgitation. Mechanical mitral valve prosthetic, normally functioning. Mitral valve mean gradient is 3.7 mmHg. The mitral valve area by Pressure Halftime Method is 3.38 cm. Aortic valve sclerosis is present. Trace aortic valve regurgitation. There is moderate to severe tricuspid valve regurgitation. Mild pulmonary valve regurgitation. BP: 142 / 63 HR: 78 Rhythm: Atrial fibrillation MEASUREMENTS (Male / Female) Normal Values Technical Quality:Fair 2D ECHO LV Diastolic Diameter PLAX 5.1 cm 4.2 - 5.9 / 3.9 - 5.3 cm LV Systolic Diameter PLAX 4.0 cm IVS Diastolic Thickness 0.8 cm 0.6 - 1.0 / 0.6 - 0.9 cm LVPW Diastolic Thickness 0.8 cm 0.6 - 1.0 / 0.6 - 0.9 cm LV Relative Wall Thickness 0.3 RV Internal Dim ED PLAX 2.8 cm LVOT Diameter 1.9 cm Aortic Root Diameter 2.9 cm LA Systolic Diameter LX 4.5 cm 3.0 - 4.0 / 2.7 - 3.8 cm M-MODE AV Cusp Separation MM 1.4 cm DOPPLER AV Peak Velocity 178.7 cm/s AV Peak Gradient 12.8 mmHg AV Mean Gradient 7.3 mmHg AV Velocity Time Integral 32.9 cm LVOT Peak Velocity 58.7 cm/s LVOT Peak Gradient 1.4 mmHg LVOT Velocity Time Integral 11.9 cm LVOT Cardiac Index 2186.0 cm/minm AV Area Cont Eq vti 1.0 cm AV Area Cont Eq pk 0.9 cm MV Peak Velocity 186.0 cm/s MV Peak Gradient 13.8 mmHg MV Mean Velocity 85.8 cm/s MV Mean Gradient 3.7 mmHg MV Area PHT 3.4 cm Mitral E Point Velocity 5.9 cm/s LV E' Lateral Velocity 10.1 cm/s Mitral E to LV E' Lateral Ratio 0.6 LV E' Septal Velocity 6.9 cm/s Mitral E to LV E' Septal Ratio 0.8 TR Peak Velocity 286.0 cm/s TR Peak Gradient 32.7 mmHg Right Atrial Pressure 10.0 mmHg Pulmonary Artery Systolic Pressu 42.7 mmHg Right Ventricular Systolic Press 42.7 mmHg PV Peak Velocity 50.3 cm/s PV Peak Gradient 1.0 mmHg FINDINGS LEFT VENTRICLE Normal left ventricular size. Wall thickness is normal. The left ventricular systolic function is low normal with an estimated ejection fraction in the rang e of 50- 55%. RIGHT VENTRICLE Normal right ventricular size and systolic function. LEFT ATRIUM The left atrial size is moderately dilated. RIGHT ATRIUM The right atrial size is [id number] dilated. ATRIAL SEPTUM Normal atrial septal thickness without atrial level shunting by limited color doppler interrogation. AORTA The aortic root and proximal ascending aorta are normal in size on limited imaging. MITRAL VALVE Mild mitral valve regurgitation. Mechanical mitral valve prosthetic, normally functioning. Mitral valve mean gradient is 3.7 mmHg. The mitral valve area by Pressure Halftime Method is 3.38 cm. AORTIC VALVE Aortic valve sclerosis is present. Trace aortic valve regurgitation. TRICUSPID VALVE There is moderate to severe tricuspid valve regurgitation. PULMONARY VALVE Mild pulmonary valve regurgitation. VESSELS The inferior vena cava is normal in size. PERICARDIUM No pericardial effusion. Ivan Lorenzo MD, FACC (Electronically Signed) Final Date:05 January 2017 10:18
== END 2017-01-04 14:26 | disposition home or self-care (01) | DRG 309 ==
LOC: NEPC 07:35 → NEDA 09:34 → HIMN 13:00 → N04B 01-03 19:18
PROVIDERS: ADMIT Hospitalist; ATTEND Hospitalist
DX: I48.91 Unspecified atrial fibrillation (principal); I50.22 Chronic systolic (congestive) heart failure; I47.2 Ventricular tachycardia; I42.9 Cardiomyopathy, unspecified; I11.0 Hypertensive heart disease with heart failure; E83.42 Hypomagnesemia; N39.0 Urinary tract infection, site not specified; I47.1 Supraventricular tachycardia; E87.6 Hypokalemia; D50.9 Iron deficiency anemia, unspecified; E03.9 Hypothyroidism, unspecified; E78.5 Hyperlipidemia, unspecified; D72.829 Elevated white blood cell count, unspecified; M06.9 Rheumatoid arthritis, unspecified; H91.93 Unspecified hearing loss, bilateral; Z79.01 Long term (current) use of anticoagulants; Z86.73 Personal history of transient ischemic attack (TIA), and cerebral infarction without residual deficits; Z95.2 Presence of prosthetic heart valve; Z95.810 Presence of automatic (implantable) cardiac defibrillator
CPT/HCPCS: 36430; 71010; 80048; 80053; 80162; 81001; 82247; 82248; 82550; 83010; 83615; 83735; 84484; 85025; 85610; 85730; 86850; 86900; 86901; 86920; 87077; 87086; 87186; 87205; 87328; 87329; 87493; 87641; 93005; 93306; 96365; 96375; J0696; J1160; J1756; J3475; P9016

== ENCOUNTER 2017-01-05 07:00 | Inpatient (IN) | payer MEDICARE ==
[~2017-01-05] VITALS: Ht 149.9 cm; Wt 60.3 kg
[2017-01-05] VITALS (9 sets, daily range): BP systolic 112–138; BP diastolic 62–78; PULSE 75–170; RESP 16–18; TEMP 97.9–98.2; O2SAT 94–100
[~2017-01-05 07:00] MED LIST changes: -ASPI81 PO; +ATOR10TA15 PO; -CARD180C5 PO; +CENT50TA PO; +CIPR250T52 PO; +COQ-50CA2 PO; -COUM4TAB7 PO; +DIGO0.12 PO; -ENAL5TAB98 PO; +FERR325T18 PO; +FOLI400T PO; -GABA100C4 PO; +GABA300C5 PO; -LEVO50TA51 PO; +LEVO75TA3 PO; -LIPI80TA16 PO; +LOSA50TA PO; +METO25TA3 PO; -METO50TA PO; -OCUV PO; +OCUVCAP2 PO; +POTA1TAB77 PO; -POTA8TAB27 PO; +WARF-18 PO; -WARF2.5 PO
--- NOTE | 2017-01-05 07:11 | PD ---
HPI Chief Complaint: Cardiac Complaint Time Seen by Provider: 07:10 Travel History International Travel<30 days: No Contact w/Intl Traveler<30days: No Traveled to known affect area: No History of Present Illness HPI 86-year-old female came to the emergency room brought by EMS for tachycardia. Patient was discharged from the hospital yesterday for anemia and tachycardia. She had received 2 units of blood transfusion and was seen by ball mill operator Dr. Lorenzo. She was noticed to be in a rapid heart rate in the 180s to 190s this morning when EMS was called. When EMS initially arrived they noticed the rate but it spontaneously dropped down to 160s. They transported her. No medication was given. However soon after arriving to the emergency room heart rate went up to the 180s to 190s again. Patient is awake and answering questions appropriately. She is hard of hearing. She denies of any chest pain or shortness of breath. Blood pressure was stable. Patient was oxygenating 95 % on room air. [facility] Past Medical History Narrative Medical List of her past medical, surgical, social and family history is reviewed from the nursing note. Hx Anticoagulant Therapy: Yes Arthritis: Yes (LEGS) Asthma: No Autoimmune Disease: No Blood Disorders: No Heart Rhythm Problems: Yes Cancer: No Cardiovascular Problems: Yes (MITRAL VALVE REPLACEMENT ) High Cholesterol: No Chemotherapy: No Chest Pain: No Congestive Heart Failure: Yes COPD: No Cerebrovascular Accident: Yes (TIA ) Diabetes: No Diminished Hearing: Yes (BILATERAL HEARING AIDES) Endocrine: No Gastrointestinal Disorders: No GERD: No Glaucoma: No Headaches: No Hepatitis: No Hiatal Hernia: No Heparin Induced Thrombocytopen: No Hypertension: Yes Immune Disorder: No Kidney Stones: No Musculoskeletal: Yes Neurologic: Yes Reproductive: No Respiratory: No Integumentary: Yes (LYMPHADEMA ) Migraines: No Myocardial Infarction: No Radiation Therapy: No Renal Failure: No Seizures: No Sickle Cell Disease: No Sleep Apnea: No Thyroid Disease: Yes Ulcer: No Menopausal: No Past Surgical History Abdominal Surgery: No AICD: Yes ([facility] ) Appendectomy: No Arteriovenous Shunt: No Cardiac Surgery: No Cholecystectomy: No Ear Surgery: No Endocrine Surgery: No Eye Surgery: No Genitourinary Surgery: No Gynecologic Surgery: No Hysterectomy: No Insulin Pump: No Joint Replacement: No Oral Surgery: No Pacemaker: Yes (PLACED 09/30/08) Thoracic Surgery: Yes Valve Replacement: Yes (MITRAL VALVE 1999) Other Surgery: Yes (DEFIBRILATOR 2003) Social History Alcohol Use: No Tobacco Use: No Substance Use: Yes Allergies-Medications (Allergen,Severity, Reaction): Coded Allergies: No Known Allergies (Verified Allergy, Unknown, 01/05/17) Uncoded Allergies: SLEEPING PILLS (Allergy, Severe, 03/11/03) Comments No known drug allergies. Reported Meds & Prescriptions Reported Meds & Active Scripts Active Cipro (Ciprofloxacin HCl) 250 Mg Tab 250 Mg PO BID 5 Days Metoprolol Tartrate 25 Mg Tab 50 Mg PO Q12HR Digoxin 0.125 Mg Tab 0.125 Mg PO DAILY Reported Ferrous Sulfate 325 Mg (65 Mg Iron) Tablet 325 Mg PO DAILY Centravites 50 Plus (Multivit with Iron,Minerals) 1 Each Tablet 1 Tab PO DAILY Ocuvite Adult 50+ (Multiple Vitamins W/ Minerals) 1 Cap 1 Cap PO DAILY Coq-10 (Coenzyme Q10 (Ubidecarenone)) 50 Mg Cap 200 Mg PO DAILY Folic Acid 0.4 Mg Tab 1 Mg PO DAILY Losartan (Losartan Potassium) 50 Mg Tab 50 Mg PO DAILY Levothyroxine (Levothyroxine Sodium) 75 Mcg Tab 75 Mcg PO DAILY K-Tab (Potassium Chloride) 8 Meq Tab 8 Meq PO BID Furosemide 20 Mg Tab 20 Mg PO BID Atorvastatin (Atorvastatin Calcium) 10 Mg Tab 10 Mg PO HS Warfarin 2.5 Mg Tab 1.25 Mg PO DAILY Gabapentin 300 Mg Cap 300 Mg PO HS Narrative Medication List of her home medications reviewed from the nursing note. Review of Systems Except as stated in HPI: all other systems reviewed are Neg Cardiovascular: Positive: Palpitations Physical Exam Narrative GENERAL: Awake, alert, elderly, moderate distress, anxious SKIN: Focused skin assessment warm/dry. Pale HEAD: Atraumatic. Normocephalic. EYES: Pupils equal and round. No scleral icterus. No injection or drainage. ENT: No nasal bleeding or discharge. Mucous membranes pink and moist. NECK: Trachea midline. No JVD. CARDIOVASCULAR: Regular rate and rhythm, tachycardia. No murmur appreciated. RESPIRATORY: No accessory muscle use. Clear to auscultation. Breath sounds equal bilaterally. GASTROINTESTINAL: Abdomen soft, non-tender, nondistended. Hepatic and splenic margins not palpable. MUSCULOSKELETAL: No obvious deformities. No clubbing. No cyanosis. No edema. NEUROLOGICAL: Awake and alert. No obvious cranial nerve deficits. Motor grossly within normal limits. Normal speech. PSYCHIATRIC: Appropriate mood and affect; insight and judgment normal. Data Data Last Documented VS Orders Orders Adenosine Inj (Adenocard Inj) (01/05/17 07:15) Diltiazem Inj (Cardizem Inj) (01/05/17 07:16) Diltiazem (Cardizem) (01/05/17 07:30) Electrocardiogram (01/05/17 07:24) Basic Metabolic Panel (Bmp) (01/05/17 07:24) Complete Blood Count With Diff (01/05/17 07:24) Magnesium (Mg) (01/05/17 07:24) Prothrombin Time / Inr (Pt) (01/05/17 07:24) Troponin I (01/05/17 07:24) Chest, Single Ap (01/05/17 07:24) Ecg Monitoring (01/05/17 07:24) Bilateral Bp Monitoring (01/05/17 07:24) Iv Access Insert/Monitor (01/05/17 07:24) Oximetry (01/05/17 07:24) Oxygen Administration (01/05/17 07:24) Sodium Chloride 0.9% Flush (Ns Flush) (01/05/17 07:30) Diltiazem Inj (Cardizem Inj) (01/05/17 07:30) Sodium Chlorid 0.9% 500 Ml Inj (Ns 500 M (01/05/17 07:30) Digoxin (01/05/17 07:20) Urinalysis - C+S If Indicated (01/05/17 08:37) Admit Order (Ed Use Only) (01/05/17 09:32) Labs Laboratory Tests Test 01/05/17 07:20 White Blood Count 18.5 TH/MM3 Red Blood Count 4.25 MIL/MM3 Hemoglobin 11.7 GM/DL Hematocrit 36.8 % Mean Corpuscular Volume 86.5 FL Mean Corpuscular Hemoglobin 27.6 PG Mean Corpuscular Hemoglobin Concent 31.9 % Red Cell Distribution Width 16.7 % Platelet Count 300 TH/MM3 Mean Platelet Volume 7.9 FL Neutrophils (%) (Auto) 88.3 % Lymphocytes (%) (Auto) 4.2 % Monocytes (%) (Auto) 7.0 % Eosinophils (%) (Auto) 0.3 % Basophils (%) (Auto) 0.2 % Neutrophils # (Auto) 16.3 TH/MM3 Lymphocytes # (Auto) 0.8 TH/MM3 Monocytes # (Auto) 1.3 TH/MM3 Eosinophils # (Auto) 0.1 TH/MM3 Basophils # (Auto) 0.0 TH/MM3 CBC Comment AUTO DIFF Differential Total Cells Counted 100 Neutrophils % (Manual) 78 % Band Neutrophils % 4 % Lymphocytes % 5 % Monocytes % 10 % Neutrophils # (Manual) 15.7 TH/MM3 Metamyelocytes 3 % Differential Comment FINAL DIFF MANUAL Platelet Estimate NORMAL Platelet Morphology Comment NORMAL Ovalocytes 1+ Prothrombin Time 35.2 SEC Prothromb Time International Ratio 3.0 RATIO Blood Urea Nitrogen 23 MG/DL Creatinine 0.72 MG/DL Random Glucose 142 MG/DL Calcium Level 9.1 MG/DL Magnesium Level 1.9 MG/DL Sodium Level 133 MEQ/L Potassium Level 4.4 MEQ/L Chloride Level 99 MEQ/L Carbon Dioxide Level 25.1 MEQ/L Anion Gap 9 MEQ/L Estimat Glomerular Filtration Rate 77 ML/MIN Troponin I 0.02 NG/ML Digoxin Level 0.6 NG/ML MDM Medical Decision Making Medical Screen Exam Complete: Yes Emergency Medical Condition: Yes Medical Record Reviewed: Yes Interpretation(s) Twelve-lead EKG was reviewed by me. Narrow complex tachycardia, SVT versus a flutter with 2-1 block. Heart rate of 196 bpm Differential Diagnosis Atrial flutter with 2-1 block, SVT, electrolyte abnormality Narrative Course 7:33 PM patient was given IV Cardizem 25 mg. Just before the Cardizem was injected heart rate was noticed to have come down to 145-165 bpm and at this point underlying A. fib was clearly visible on the monitor. Blood pressure was 156. I decided to go ahead and give this patient 25 mg of Cardizem upon which patient's heart rate slowed down to the 80s to 100s. Blood pressure came down to 105 systolic. Patient's facial color improved. Patient's that she was feeling better. I've ordered by mouth Cardizem 90 mg. Awaiting for blood work. I'll discuss the case with Dr. Lorenzo once the blood test results of back. I ordered a repeat 12-lead EKG at this point which shows atrial fibrillation, normal axis, lateral ST depressions and T-wave inversions. Heart rate of 105 bpm. 9:33 AM patient continues to be in heart rate of 60s to 70s but in A. fib. Discussed the case with Dr. Foster the ball mill operator and he would like to admit the patient for overnight observation and then adjust her medications. I discussed the case with the hospitalist was accepted here. Patient has leukocytosis and trending her labs back she has had high white blood cell count last time when she was here. She was also diagnosed with UTI which grew Klebsiella and she was discharged home on ciprofloxacin which the bacteria was sensitive to. I've asked for a repeat UA at this point. Critical Care Narrative Aggregate critical care time was 45 minutes. Time to perform other separately billable procedures was not included in the critical care time. My time did not include minutes spent treating any other patients simultaneously or on activities that did not directly contribute to the patient's treatment. The services I provided to this patient were to treat and/or prevent clinically significant deterioration that could result in: A. fib with RVR, Cardizem bolus, rate control I provided critical care services requiring my management, as noted below: Chart data review, documentation time, medication orders and management, vital sign assessments/reviewing monitor data, ordering and reviewing lab tests, ordering and interpreting/reviewing x-rays and diagnostic studies, care of the patient and discussion of the patient with the admitting physicians. Procedures EKG Prior to Arrival: Yes Physician Communication Physician Communication Dr. Foster Diagnosis Primary Impression: Atrial fibrillation with RVR Additional Impressions: AICD discharge Leukocytosis Qualified Codes: D72.829 - Elevated white blood cell count, unspecified Admitting Information Admitting Physician Requests: Observation Aaron Perez MD Jan 05, 2017 07:11
[2017-01-05] MEDS ORDERED: ADENOSINE IV SOLN 3 MG/ML 2 ML VIAL ONE (07:15)
[2017-01-05] MEDS ORDERED: DILTIAZEM HCL 25 MG/5 ML VIAL ONE (07:16)
[2017-01-05] MEDS: SODIUM CHLORIDE 0.9% FLUSH 10 ML FLUSH IVF PRN (07:19)
[2017-01-05] MEDS ORDERED: DILTIAZEM HCL 25 MG/5 ML VIAL IV ONE (07:30)
[2017-01-05] MEDS ORDERED: DILTIAZEM HCL 90 MG TAB PO ONE (07:30)
[2017-01-05] MEDS ORDERED: SODIUM CHLORID 0.9% 500 ML INJ 500 ML IV ONE (07:30)
[2017-01-05 07:46] LABS: AUTOMATED NEUTROPHIL # 16.3 TH/MM3 (1.8-7.7); BASOPHIL % 0.2 % (0.0-2.0); EOSINOPHIL # 0.1 TH/MM3 (0-0.4); EOSINOPHIL % 0.3 % (0.0-4.0); HEMATOCRIT 36.8 % (35.0-46.0); LYMPH % 4.2 % (9.0-44.0); LYMPHOCYTE # 0.8 TH/MM3 (1.0-4.8); MEAN CELL VOLUME 86.5 FL (80.0-100.0); MEAN CORPUSCULAR HEMOGLOBIN 27.6 PG (27.0-34.0); MEAN CORPUSCULAR HGB CONC 31.9 % (32.0-36.0); NEUT % 88.3 % (16.0-70.0); PLATELET COUNT 300 TH/MM3 (150-450); RED BLOOD COUNT 4.25 MIL/MM3 (4.00-5.30); RED CELL DISTRIBUTION WIDTH 16.7 % (11.6-17.2); WHITE BLOOD COUNT 18.5 TH/MM3 (4.0-11.0)
[2017-01-05 07:47] LABS: HEMO FLAGS AUTO DIFF
[2017-01-05 07:55] LABS: PROTHROMBIN TIME - PATIENT 35.2 SEC (9.8-11.6)
--- NOTE | 2017-01-05 08:12 | RADRPT ---
EXAM DATE/TIME: 01/05/2017 07:50 [facility] COMPARISON: CHEST SINGLE AP, January 01, 2017, 8:08. INDICATIONS : Defibulator going off, causing chest discomfort and irregular heart beat. Patient just discharged Tue01-04-2017. MEDICAL HISTORY : Myocardial infarction. SURGICAL HISTORY : Pacemaker. CABG. ENCOUNTER: [facility] ACUITY: 1 day PAIN SCORE: 7/10 LOCATION: Bilateral chest FINDINGS: A single portable frontal view the chest shows moderate cardiomegaly. Prosthetic heart valve, median sternotomy wires, and left-sided pacing device. No pulmonary vascular engorgement. Lungs are clear. N o effusions. CONCLUSION: Cardiomegaly. No acute infiltrate or effusion. Carter Rausch Jr., MD on January 05, 2017 at 8:09 Board Certified Radiologist. This report was verified electronically.
[2017-01-05 08:20] LABS: BICARBONATE 25.1 MEQ/L (21.0-32.0); MAGNESIUM 1.9 MG/DL (1.5-2.5)
[2017-01-05 08:21] LABS: POTASSIUM 4.4 MEQ/L (3.5-5.1)
[2017-01-05 08:37] LABS: DIGOXIN 0.6 NG/ML (0.8-2.0)
[2017-01-05 08:42] LABS: BANDS 4 % (0-6); METAMYELOCYTES 3 % (0-1); NEUTROPHIL # MANUAL DIFF 15.7 TH/MM3 (1.8-7.7); POLYS (SEG NEUTROPHILS) 78 % (16-70); WBC DIFF SAMPLE 100
[2017-01-05 08:43] LABS: OVALOCYTES 1+ (NORMAL); PLATELET ESTIMATE SMEAR NORMAL (NORMAL); PLATELET MORPHOLOGY NORMAL (NORMAL); SCAN/DIFF FINAL DIFF MANUAL
--- NOTE | 2017-01-05 09:16 | EKG ---
Date Performed: 01/05/2017 Time Performed: 07:12:58 PTAGE: 86 years EKG: SUPRAVENTRICULAR TACHYCARDIA MODERATE INTRAVENTRICULAR CONDUCTION DELAY Nonspecific ST and T wave abnormalities ABNORMAL ECG Compared to prior electrocardiogram, Supraventricular tachycardia i s now present and ST segment and T wave changes are more marked . DOCTOR: Rigo Rosado Interpretating Date/Time 01/05/2017 09:15:40
--- NOTE | 2017-01-05 10:20 | HHI.HP ---
HPI Service [facility] Primary Care Physician Vipul Bowen D.O. Admission Diagnosis A. fib, RVR, AICD fired Chief Complaint: AICD firing Travel History International Travel<30 Days: No Contact w/Intl Traveler <30 Da: No Traveled to Known Affected Are: No History of Present Illness Pt is an 86 y/o female with atrial fibrillation on chronic anticoagulation with Coumadin, Cardiomyopathy with AICD, CHF with EF 25-30%. She was recently admitted from 01/01/17 to 01/04/17 for anemia, defibrillator firing and A. fib RVR. During that admission was was given IV Cardizem but its use was limited due to hypotension and was weaned off. She was placed on Metoprolol 50mg po BID and Digoxin. Pt was transfused with 1 unit of PRBCs and IV iron during that admission. She was also found to have a UTI with urine culture growing Klebsiella and was discharged on Cipro. Pt was discharged home yesterday and reported that this morning she was feeling well and gave herself a sponge bath. Then while sitting down having a cup of coffee her AICD fired twice. EMS was called. When EMS initially arrived they noticed the rate but it reportedly her HR was in the 160s per the ED notes. Pt reports that she had one more episode of the AICD firing prior to getting in the ambulance. They transported her to the ED but no medication was given. However soon after arriving to the emergency room heart rate went up to the 180s to 190s again. Cardiology was consulted and pt was administered IV Cardizem and given Cardizem 90mg po x one dose. Pt still in A. fib with HR in the 80's at the time of admission. 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 Hyperlipidemia Hypothyroidism HTN cardiomyopathy with systolic CHF Defibrillator Mechanical Mitral valve Rheumatoid Arthritis Transient Ischemic Attack (TIA) 2D echo (12/09/14): - EF 25-30% - LA moderately increased in size - Mechanical mitral valve, no mitral valve stenosis - Trace mitral regurg - Aortic valve sclerosis, mild aortic valve stenosis - Moderate to severe tricuspid valve regurgitation - PA pressure moderately elevated at 44mmHg Past Surgical History AICD placement Colonoscopy Mechanical mitral valve replacement Tonsillectomy Tubal ligation Reported Medications Cipro 250 Mg PO BID 5 Days Metoprolol Tartrate 50 Mg PO Q12HR Digoxin 0.125 Mg PO DAILY Ferrous Sulfate 325 Mg PO DAILY Centravites 50 Plus 1 Tab PO DAILY Ocuvite Adult 50+ 1 Cap PO DAILY Coq-10 200 Mg PO DAILY Folic Acid 1 Mg PO DAILY Losartan 50 Mg PO DAILY Levothyroxine 75 Mcg PO DAILY K-Tab 8 Meq PO BID Furosemide 20 Mg PO BID Atorvastatin 10 Mg PO HS Warfarin 1.25 Mg PO DAILY Gabapentin 300 Mg PO HS Allergies: Coded Allergies: No Known Allergies (Verified Allergy, Unknown, 01/05/17) Uncoded Allergies: SLEEPING PILLS (Allergy, Severe, 03/11/03) Family History Father at 93 secondary to old age Social History Lives alone, has a daughter that lives in [place] and helps often. Patient also has neighbors who bring groceries Independent with ADL ambulated with cane and walker Denies ETOH use, tobacco use or illicit drugs use Physical Exam Vital Signs Vital Signs Date Time Temp Pulse Resp B/P (MAP) Pulse Ox O2 Delivery O2 Flow Rate FiO2 01/05/17 08:42 85 16 113/62 (79) 99 Nasal Cannula 2.00 01/05/17 07:39 99 18 126/66 (86) 98 Room Air 01/05/17 07:32 124 18 113/73 (86) 98 Room Air 123/71 (88) 01/05/17 07:29 98 Room Air 01/05/17 07:29 (97) Room Air 01/05/17 07:08 98.2 170 18 137/78 (97) 97 Room Air 01/05/17 07:07 170 18 Physical Exam GENERAL: This is a well-nourished, well-developed patient, in no apparent distress. SKIN: No rashes, ecchymoses or lesions. Cool and dry. HEAD: Atraumatic. Normocephalic. No temporal or scalp tenderness. EYES: Pupils equal round and reactive. Extraocular motions intact. No scleral icterus. No injection or drainage. ENT: Nose without bleeding, purulent drainage or septal hematoma. Throat without erythema, tonsillar hypertrophy or exudate. Uvula midline. Airway patent. NECK: Trachea midline. No JVD or lymphadenopathy. Supple, nontender, no meningeal signs. CARDIOVASCULAR: Regular rate and rhythm without murmurs, gallops, or rubs. RESPIRATORY: Clear to auscultation. Breath sounds equal bilaterally. No wheezes , rales, or rhonchi. GASTROINTESTINAL: Abdomen soft, non-tender, nondistended. No hepato-splenomegaly , or palpable masses. No guarding. MUSCULOSKELETAL: Extremities without clubbing, cyanosis, or edema. No joint tenderness, effusion, or edema noted. No calf tenderness. Negative Homans sign bilaterally. NEUROLOGICAL: Awake and alert. Cranial nerves II through XII intact. Motor and sensory grossly within normal limits. Five out of 5 muscle strength in all muscle groups. Normal speech. Laboratory Laboratory Tests Test 01/05/17 07:20 White Blood Count 18.5 Red Blood Count 4.25 Hemoglobin 11.7 Hematocrit 36.8 Mean Corpuscular Volume 86.5 Mean Corpuscular Hemoglobin 27.6 Mean Corpuscular Hemoglobin Concent 31.9 Red Cell Distribution Width 16.7 Platelet Count 300 Mean Platelet Volume 7.9 Neutrophils (%) (Auto) 88.3 Lymphocytes (%) (Auto) 4.2 Monocytes (%) (Auto) 7.0 Eosinophils (%) (Auto) 0.3 Basophils (%) (Auto) 0.2 Neutrophils # (Auto) 16.3 Lymphocytes # (Auto) 0.8 Monocytes # (Auto) 1.3 Eosinophils # (Auto) 0.1 Basophils # (Auto) 0.0 CBC Comment AUTO DIFF Differential Total Cells Counted 100 Neutrophils % (Manual) 78 Band Neutrophils % 4 Lymphocytes % 5 Monocytes % 10 Neutrophils # (Manual) 15.7 Metamyelocytes 3 Differential Comment FINAL DIFF MANUAL Platelet Estimate NORMAL Platelet Morphology Comment NORMAL Ovalocytes 1+ Prothrombin Time 35.2 Prothromb Time International Ratio 3.0 Blood Urea Nitrogen 23 Creatinine 0.72 Random Glucose 142 Calcium Level 9.1 Magnesium Level 1.9 Sodium Level 133 Potassium Level 4.4 Chloride Level 99 Carbon Dioxide Level 25.1 Anion Gap 9 Estimat Glomerular Filtration Rate 77 Troponin I 0.02 Digoxin Level 0.6 Result Diagram: 01/05/1771901/05/17719 Caprini VTE Risk Assessment Caprini VTE Risk Assessment: Mod/High Risk (score >= 2) Caprini Risk Assessment Model Point Value = 1 Point Value = 2 Point Value = 3 Point Value = 5 Age 41-60 Minor surgery BMI > 25 kg/m2 Swollen legs Varicose veins or History of unexplained or recurrent spontaneous Oral contraceptives or hormone replacement Sepsis (< 1 month) Serious lung disease, including pneumonia (< 1 month) Abnormal pulmonary function Acute myocardial infarction Congestive heart failure (< 1 month) History of inflammatory bowel disease Medical patient at bed rest Age 61-74 Arthroscopic surgery Major open surgery (> 45 min) Laparoscopic surgery (> 45 min) Malignancy Confined to bed (> 72 hours) Immobilizing plaster cast Central venous access Age >= 75 History of VTE Family history of VTE Factor V Leiden Prothrombin [id number] Lupus anticoagulant Anticardiolipin antibodies Elevated serum homocysteine Heparin-induced thrombocytopenia Other congenital or acquired thrombophilia Stroke (< 1 month) Elective arthroplasty Hip, pelvis, or leg fracture Acute spinal cord injury (< 1 month) Prophylaxis Regimen Total Risk Factor Score Risk Level Prophylaxis Regimen 0-1 Low Early ambulation 2 Moderate Order ONE of the following: *Sequential Compression Device (SCD) *Heparin 5000 units SQ BID 3-4 Higher Order ONE of the following medications: *Heparin 5000 units SQ TID *Enoxaparin/Lovenox 40 mg SQ daily (WT < 150 kg, CrCl > 30 mL/min) *Enoxaparin/Lovenox 30 mg SQ daily (WT < 150 kg, CrCl > 10-29 mL/min) *Enoxaparin/Lovenox 30 mg SQ BID (WT < 150 kg, CrCl > 30 mL/min) AND/OR *Sequential Compression Device (SCD) 5 or more Highest Order ONE of the following medications: *Heparin 5000 units SQ TID (Preferred with Epidurals) *Enoxaparin/Lovenox 40 mg SQ daily (WT < 150 kg, CrCl > 30 mL/min) *Enoxaparin/Lovenox 30 mg SQ daily (WT < 150 kg, CrCl > 10-29 mL/min) *Enoxaparin/Lovenox 30 mg SQ BID (WT < 150 kg, CrCl > 30 mL/min) AND *Sequential Compression Device (SCD) Assessment and Plan Problem List: (1) AICD discharge ICD Codes: Z45.02 - Encounter for adjustment and management of automatic implantable cardiac defibrillator Status: Acute Plan: Pt is an 86 y/o female with atrial fibrillation on chronic anticoagulation with Coumadin, Cardiomyopathy with AICD, CHF with EF 25-30%. She was recently admitted from 01/01/17 to 01/04/17 for anemia, defibrillator firing and A. fib RVR. During that admission was was given IV Cardizem but its use was limited due to hypotension and was weaned off. She was placed on Metoprolol 50mg po BID and Digoxin. Pt was transfused with 1 unit of PRBCs and IV iron during that admission. She was also found to have a UTI with urine culture growing Klebsiella and was discharged on Cipro. Pt was discharged home yesterday and reported that this morning her AICD fired twice and EMS was called. When EMS initially arrived they noticed the rate but it reportedly her HR in the 160s. Her AICD fired again while walking to the ambulance They transported her to the ED but no medication was given. However soon after arriving to the emergency room heart rate went up to the 180s to 190s again. Cardiology was consulted and pt was administered IV Cardizem and given Cardizem 90mg po x one dose. Pt still in A. fib with HR in the 80's at the time of admission. Atrial Fibrillation with RVR Defibrillator firing - Pt was admitted with tachycardia and reported firing of her defibrillator - Patient was shocked by her defibrillator multiple times prior to her last admission and at that time the device was interrogated and revealed 9 VF zone with 9 shocks, 3 in VT- 2 zone with 6 shocks and 48 classed SVT - Pt was discharged on Metoprolol 50mg Q12H and Digoxin 0.125mg po daily. - Pt readmitted with A. fib RVR and patient given Cardizem 25mg IV x one dose and Cardizem 90mg po x one dose int he ED with adequate rate control. - Dig Level at admission was subtherapeutic at 0.6 - Cont. oral Cardizem 60mg Q6H - INR 3.0 at admission. 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 Niño outpatient - During recent admission pt received 1 unit PRBCs and Iron infusion - Per outpatient records, outpatient iron studies have shown a very low iron saturation of 10%. She has had extensive work-up including thyroid function testing, B12 and folate testing which was all normal. Her LDH was slightly elevated , haptoglobin was low and direct Iza test was negative. 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 Previously reported neg stool guiac by pcp - Pt follows with Dr Niño Hypothyroidism - Continue home levothyroxine - Last TSH check 12/20/16 2.040 Hyperlipidemia - continue patient's home statin regiment HTN - Hold ARB for now. UTI with Klebsiella Leukocytosis - WBC 18.5 at admission - Pt previously noted to have UTI with culture growing Klebsiella. - Pt was discharged on Cipro, this will be continued. (2) Atrial fibrillation with RVR ICD Codes: I48.91 - Unspecified atrial fibrillation Status: Acute (3) Leukocytosis ICD Codes: D72.829 - Elevated white blood cell count, unspecified Status: Acute (4) UTI (urinary tract infection) ICD Codes: N39.0 - Urinary tract infection, site not specified (5) Cardiomyopathy ICD Codes: I42.9 - Cardiomyopathy, unspecified Status: Chronic Assessment and Plan Patient examined. Assessment and plan formulated with Becky Patton PA-C. I agree with the above. recurrent afib/rvr with defibrillation. ccb initiated and bb/dig/arb on hold her foundry hand was notified by ED cont abx for uti. monitor inr. Problem Qualifiers (1) Leukocytosis: Qualified Codes: D72.829 - Elevated white blood cell count, unspecified Becky Patton Jan 05, 2017 10:20 Dilshad Cabrera MD Jan 05, 2017 21:16
[2017-01-05 11:16] LABS: BLOOD, URINE NEG (NEG); COMMENT (UR) CULT NOT INDICATED; CULTURE IF INDICATED CULT NOT INDICATED; GLUCOSE,URINE NEG (NEG); HYALINE CAST, URINE 3 /lpf (RARE); KETONE, URINE NEG (NEG); MUCUS URINE FEW /lpf (OCC); NITRITE,URINE NEG (NEG); SQUAMOUS EPITHELIAL CELL URINE 1 /hpf (0-5); URINE COLOR YELLOW (YELLW/STRAW)
[2017-01-05] MEDS: CIPROFLOXACIN 250 MG TAB PO SCH ×2 (12:26→23:12)
[2017-01-05] MEDS ORDERED: PILL SPLITTER OTHER PRN (12:45)
--- NOTE | 2017-01-05 13:32 | EKG ---
Date Performed: 01/05/2017 Time Performed: 07:29:56 PTAGE: 86 years EKG: ATRIAL FIBRILLATION WITH RAPID VENTRICULAR RESPONSE Nonspecific ST and T wave abnormalities ABNORMAL ECG Compared to prior electrocardiogram, Atrial fibrillation has replaced supraventricular tachycardia. NO PREVIOUS TRACING DOCTOR: Rigo Rosado Interpretating Date/Time 01/05/2017 13:30:33
[2017-01-05] MEDS: DILTIAZEM HCL 60 MG TAB PO SCH ×2 (13:46→18:41)
[2017-01-05] MEDS: FUROSEMIDE 20 MG TAB PO SCH (18:42)
[2017-01-05] MEDS: GABAPENTIN 300 MG CAP PO SCH (21:18)
[2017-01-05] MEDS: POTASSIUM CHLORIDE 8 MEQ CONTROLLED RELEASE TAB PO SCH (21:18)
[2017-01-05] MEDS: ATORVASTATIN 10 MG TAB PO SCH (21:19)
[2017-01-06] VITALS (9 sets, daily range): BP systolic 107–145; BP diastolic 60–94; PULSE 72–85; RESP 16–18; TEMP 97.9–98.3; O2SAT 94–97
[2017-01-06] MEDS: DILTIAZEM HCL 60 MG TAB PO SCH ×2 (05:11)
[2017-01-06] MEDS: LEVOTHYROXINE SODIUM 75 MCG TAB PO SCH (05:11)
--- NOTE | 2017-01-06 07:57 | PD.CARD.PN ---
Subjective Subjective Remarks Feels well. Remains in NSR. Tolerating metoprolol well Objective Medications Current Medications Medications (Trade) Dose Ordered Sig/Denis Route Start Time Stop Time Status Last Admin (NS Flush) 2 ml UNSCH PRN IVF 01/05/17 07:30 01/05/17 07:19 (Lipitor) 10 mg HS PO 01/05/17 21:00 01/05/17 21:19 (Cipro) 250 mg Q12H PO 01/05/17 11:00 01/05/17 23:12 (Ferrous Sulfate) 325 mg DAILY PO 01/06/17 09:00 (Folate) 1 mg DAILY PO 01/06/17 09:00 (Lasix) 20 mg BID@0900,1800 PO 01/05/17 18:00 01/05/17 18:42 (Neurontin) 300 mg HS PO 01/05/17 21:00 01/05/17 21:18 (Synthroid) 75 mcg DAILY@0600 PO 01/06/17 06:00 01/06/17 05:11 (KCl) 8 meq BID PO 01/05/17 21:00 01/05/17 21:18 (Theragran M Tab) 1 tab DAILY PO 01/06/17 09:00 (Cardizem) 60 mg Q6HR PO 01/05/17 13:00 01/06/17 05:11 (Coumadin) 1.25 mg DAILY@1600 PO 01/06/17 16:00 (Coumadin Booklet) 1 ONCE ONCE OTHER 01/06/17 16:00 01/06/17 16:01 (Pill Splitter) 1 ea UNSCH PRN OTHER 01/05/17 12:45 Vital Signs / I&O Vital Signs Date Time Temp Pulse Resp B/P (MAP) Pulse Ox O2 Delivery O2 Flow Rate FiO2 01/06/17 05:08 98.0 84 18 139/94 (109) 94 01/06/17 03:47 72 01/06/17 01:04 98.0 82 18 145/72 (96) 95 01/06/17 00:20 76 01/05/17 20:10 103 01/05/17 19:47 98.0 91 17 138/68 (91) 95 01/05/17 16:00 97.9 75 16 112/70 (84) 94 01/05/17 15:17 85 01/05/17 11:27 98.0 82 16 122/67 (85) 100 01/05/17 10:30 01/05/17 08:42 85 16 113/62 (79) 99 Nasal Cannula 2.00 I/O 01/05/17 01/05/17 01/05/17 01/06/17 01/06/17 01/06/17 07:00 15:00 23:00 07:00 15:00 23:00 Intake Total 500 ml Balance 500 ml Intake IV Total 500 ml # Voids 2 3 1 Laboratory Laboratory Tests Test 01/05/17 10:25 Urine Color YELLOW Urine Turbidity HAZY Urine pH 5.0 Urine Specific [place] 1.020 Urine Protein TRACE mg/dL Urine Glucose (UA) NEG mg/dL Urine Ketones NEG mg/dL Urine Occult Blood NEG Urine Nitrite NEG Urine Bilirubin NEG Urine Urobilinogen LESS THAN 2.0 MG/DL Urine Leukocyte Esterase MOD Urine RBC 1 /hpf Urine WBC 8 /hpf Urine Squamous Epithelial Cells 1 /hpf Urine Hyaline Casts 3 /lpf Urine Mucus FEW /lpf Microscopic Urinalysis Comment CULT NOT INDICATED Assessment and Plan Assessment and Plan Stable CV. OK to D/C will f/u in clinic next week Kristofer Foster MD Jan 06, 2017 07:57
--- NOTE | 2017-01-06 08:46 | MB ---
cc: UMA LU MD DATE OF CONSULTATION: 01/06/2017 HISTORY OF PRESENT ILLNESS This is a 86-year-old woman who has a history of cardiomyopathy with AICD in place. She was admitted to the hospital last week for anemia and with atrial fibrillation and rapid ventricular response. She was given some IV Cardizem but limited due to hypotension. She was placed on metoprolol and digoxin. She was sent home on metoprolol 25 mg twice daily with digoxin, but after being diagnosed with UTI she noted that her AICD fired. She was brought to the emergency department where she was found to have supraventricular tachycardia. She was given IV Cardizem with conversion back to sinus rhythm. She is currently in atrial fibrillation with a heart rate of approximately 80. PAST MEDICAL HISTORY Past medical is otherwise significant for: 1. Mitral valve replacement. 2. Rheumatoid arthritis. MEDICATIONS Medications at home have included: 1. Warfarin. 2. Atorvastatin. 3. Furosemide. 4. Losartan. 5. Metoprolol. 6. Cipro. ALLERGIES None. PHYSICAL EXAMINATION GENERAL: She is awake and alert. She is in no acute distress. VITAL SIGNS: Blood pressure is 130/90, pulse is 70 and regular. NECK: There is no neck vein distension. Carotids are normal. LUNGS: Clear. CARDIOVASCULAR: Exam reveals a regular rate and rhythm. There is no significant murmur, no gallop is noted. EXTREMITIES: Reveal no edema. ASSESSMENT The patient has had atrial fib with a rapid response. Will increase the dose of her metoprolol to 75 mg twice daily. We will otherwise continue her medications as is. MD RENATA Browne/CHARLYL /7:58 AM /8:27 AM
--- NOTE | 2017-01-06 08:47 | HHI.PR ---
Subjective Remarks No new complaints this morning She had a few episodes of A. fib RVR last night and this morning likely when she was ambulating with HR up to 150's No chest pain or palpitations Currently on telemetry in A. fib HR in the 80's Objective Vitals Vital Signs Date Time Temp Pulse Resp B/P (MAP) Pulse Ox O2 Delivery O2 Flow Rate FiO2 01/06/17 07:40 97.9 79 16 130/69 (89) 95 01/06/17 05:08 98.0 84 18 139/94 (109) 94 01/06/17 03:47 72 01/06/17 01:04 98.0 82 18 145/72 (96) 95 01/06/17 00:20 76 01/05/17 20:10 103 01/05/17 19:47 98.0 91 17 138/68 (91) 95 01/05/17 16:00 97.9 75 16 112/70 (84) 94 01/05/17 15:17 85 01/05/17 11:27 98.0 82 16 122/67 (85) 100 01/05/17 10:30 01/05/17 08:42 85 16 113/62 (79) 99 Nasal Cannula 2.00 Result Diagram: 01/05/17 0701/05/17 0720 Other Results Laboratory Tests Test 01/05/17 07:20 01/05/17 10:25 White Blood Count 18.5 TH/MM3 Red Blood Count 4.25 MIL/MM3 Hemoglobin 11.7 GM/DL Hematocrit 36.8 % Mean Corpuscular Volume 86.5 FL Mean Corpuscular Hemoglobin 27.6 PG Mean Corpuscular Hemoglobin Concent 31.9 % Red Cell Distribution Width 16.7 % Platelet Count 300 TH/MM3 Mean Platelet Volume 7.9 FL Neutrophils (%) (Auto) 88.3 % Lymphocytes (%) (Auto) 4.2 % Monocytes (%) (Auto) 7.0 % Eosinophils (%) (Auto) 0.3 % Basophils (%) (Auto) 0.2 % Neutrophils # (Auto) 16.3 TH/MM3 Lymphocytes # (Auto) 0.8 TH/MM3 Monocytes # (Auto) 1.3 TH/MM3 Eosinophils # (Auto) 0.1 TH/MM3 Basophils # (Auto) 0.0 TH/MM3 CBC Comment AUTO DIFF Differential Total Cells Counted 100 Neutrophils % (Manual) 78 % Band Neutrophils % 4 % Lymphocytes % 5 % Monocytes % 10 % Neutrophils # (Manual) 15.7 TH/MM3 Metamyelocytes 3 % Differential Comment FINAL DIFF MANUAL Platelet Estimate NORMAL Platelet Morphology Comment NORMAL Ovalocytes 1+ Prothrombin Time 35.2 SEC Prothromb Time International Ratio 3.0 RATIO Blood Urea Nitrogen 23 MG/DL Creatinine 0.72 MG/DL Random Glucose 142 MG/DL Calcium Level 9.1 MG/DL Magnesium Level 1.9 MG/DL Sodium Level 133 MEQ/L Potassium Level 4.4 MEQ/L Chloride Level 99 MEQ/L Carbon Dioxide Level 25.1 MEQ/L Anion Gap 9 MEQ/L Estimat Glomerular Filtration Rate 77 ML/MIN Troponin I 0.02 NG/ML Digoxin Level 0.6 NG/ML Urine Color YELLOW Urine Turbidity HAZY Urine pH 5.0 Urine Specific [place] 1.020 Urine Protein TRACE mg/dL Urine Glucose (UA) NEG mg/dL Urine Ketones NEG mg/dL Urine Occult Blood NEG Urine Nitrite NEG Urine Bilirubin NEG Urine Urobilinogen LESS THAN 2.0 MG/DL Urine Leukocyte Esterase MOD Urine RBC 1 /hpf Urine WBC 8 /hpf Urine Squamous Epithelial Cells 1 /hpf Urine Hyaline Casts 3 /lpf Urine Mucus FEW /lpf Microscopic Urinalysis Comment CULT NOT INDICATED Imaging Last Impressions Chest X-Ray 01/05/17723 Signed Impressions: Service Date/Time: Tuesday, January 05, 2017 07:50 - CONCLUSION: Cardiomegaly. No acute infiltrate or effusion. Carter Rausch Jr., MD Objective Remarks General: NAD, AAox3 Chest: CTA Cardiac: Irregular Abd: +BS, soft ND/NT Ext: No edema A/P Problem List: (1) AICD discharge ICD Codes: Z45.02 - Encounter for adjustment and management of automatic implantable cardiac defibrillator Status: Acute Plan: Pt is an 86 y/o female with atrial fibrillation on chronic anticoagulation with Coumadin, Cardiomyopathy with AICD, CHF with EF 25-30%. She was recently admitted from 01/01/17 to 01/04/17 for anemia, defibrillator firing and A. fib RVR. During that admission was was given IV Cardizem but its use was limited due to hypotension and was weaned off. She was placed on Metoprolol 50mg po BID and Digoxin. Pt was transfused with 1 unit of PRBCs and IV iron during that admission. She was also found to have a UTI with urine culture growing Klebsiella and was discharged on Cipro. Pt was discharged home yesterday and reported that this morning her AICD fired twice and EMS was called. When EMS initially arrived they noticed the rate but it reportedly her HR in the 160s. Her AICD fired again while walking to the ambulance They transported her to the ED but no medication was given. However soon after arriving to the emergency room heart rate went up to the 180s to 190s again. Cardiology was consulted and pt was administered IV Cardizem and given Cardizem 90mg po x one dose. Pt still in A. fib with HR in the 80's at the time of admission. Atrial Fibrillation with RVR Defibrillator firing - Pt was admitted with tachycardia and reported firing of her defibrillator - Patient was shocked by her defibrillator multiple times prior to her last admission and at that time the device was interrogated and revealed 9 VF zone with 9 shocks, 3 in VT- 2 zone with 6 shocks and 48 classed SVT - Pt was discharged on Metoprolol 50mg Q12H and Digoxin 0.125mg po daily. - Pt readmitted with A. fib RVR and patient given Cardizem 25mg IV x one dose and Cardizem 90mg po x one dose int he ED with adequate rate control. - Dig Level at admission was subtherapeutic at 0.6 - Pt was continued on oral Cardizem 60mg Q6H following admission and will convert to Cardizem CD 240mg po daily - Pt was seen by Cardiology this morning and was resumed on her Metoprolol 50mg po BID in addition to the Cardizem - INR 3.0 at admission. Pt is on Coumadin 1.25mg po daily as she has been on Abx. Await repeat INR this morning. - Monitor HR and BP with addition of Metoprolol - If vitals stable today anticipate discharge to home this evening. 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 Niño outpatient - During recent admission pt received 1 unit PRBCs and Iron infusion - Per outpatient records, outpatient iron studies have shown a very low iron saturation of 10%. She has had extensive work-up including thyroid function testing, B12 and folate testing which was all normal. Her LDH was slightly elevated , haptoglobin was low and direct Iza test was negative. 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 Previously reported neg stool guiac by pcp - Pt follows with Dr Niño Hypothyroidism - Continue home levothyroxine - Last TSH check 12/20/16 2.040 Hyperlipidemia - continue patient's home statin regiment HTN - Hold ARB for now. UTI with Klebsiella Leukocytosis - WBC 18.5 at admission - Pt previously noted to have UTI with culture growing Klebsiella. - Pt was discharged on Cipro, this was continued. (2) Atrial fibrillation with RVR ICD Codes: I48.91 - Unspecified atrial fibrillation Status: Acute (3) Leukocytosis ICD Codes: D72.829 - Elevated white blood cell count, unspecified Status: Acute (4) UTI (urinary tract infection) ICD Codes: N39.0 - Urinary tract infection, site not specified (5) Cardiomyopathy ICD Codes: I42.9 - Cardiomyopathy, unspecified Status: Chronic Assessment and Plan Patient examined. Assessment and plan formulated with Becky Patton PA-C. I agree with the above. discussed with cardiology....convert to cardizem cd 240mg and add back metoprolol. will monitor and if stable d/c inr stable. cont abx for uti. Problem Qualifiers (1) Leukocytosis: Qualified Codes: D72.829 - Elevated white blood cell count, unspecified Becky Patton Jan 06, 2017 08:47 Dilshad Cabrera MD Jan 06, 2017 11:31
--- NOTE | 2017-01-06 08:48 | HHI.FF ---
Face to Face Verification Diagnosis: (1) Leukocytosis (2) Atrial fibrillation with RVR (3) AICD discharge (4) UTI (urinary tract infection) (5) Cardiomyopathy Physical Therapy Order: Evaluate and Treat, Improve ambulation, Strength and gait training Home Health Nursing Order: Medical education Nursing assessment with vital signs I have seen patient Manasa Franks on 01/06/17. My clinical findings support the need for the requested home health care services because: Deconditioned w/ increased weakness High risk of falls I certify that my clinical findings support that this patient is homebound because: Unsteady gait/balance Becky Patton Jan 06, 2017 08:48
[2017-01-06] MEDS: MULTIVITAMINS/MINERALS THERAPEUTIC TAB PO SCH (09:32)
[2017-01-06] MEDS: POTASSIUM CHLORIDE 8 MEQ CONTROLLED RELEASE TAB PO SCH ×2 (09:32→22:48)
[2017-01-06] MEDS: METOPROLOL TARTRATE 50 MG TAB PO SCH ×2 (09:33→22:48)
[2017-01-06] MEDS: DILTIAZEM-CD 240 MG CAP ER PO SCH (09:33)
[2017-01-06] MEDS: FERROUS SULFATE 325 MG (65 MG ELEMENTAL IRON) TAB PO SCH (09:33)
[2017-01-06] MEDS: FOLIC ACID 1 MG TAB PO SCH (09:33)
[2017-01-06] MEDS: FUROSEMIDE 20 MG TAB PO SCH ×2 (09:34→18:27)
[2017-01-06 09:44] LABS: AUTOMATED NEUTROPHIL # 14.4 TH/MM3 (1.8-7.7); BASOPHIL % 0.1 % (0.0-2.0); EOSINOPHIL % 0.1 % (0.0-4.0); HEMATOCRIT 35.2 % (35.0-46.0); LYMPH % 3.5 % (9.0-44.0); LYMPHOCYTE # 0.6 TH/MM3 (1.0-4.8); MEAN CELL VOLUME 86.2 FL (80.0-100.0); MEAN CORPUSCULAR HGB CONC 32.5 % (32.0-36.0); MONO % 7.4 % (0.0-8.0); NEUT % 88.9 % (16.0-70.0); PLATELET COUNT 268 TH/MM3 (150-450); RED BLOOD COUNT 4.08 MIL/MM3 (4.00-5.30); RED CELL DISTRIBUTION WIDTH 16.4 % (11.6-17.2); WHITE BLOOD COUNT 16.2 TH/MM3 (4.0-11.0)
[2017-01-06 09:45] LABS: HEMO FLAGS AUTO DIFF
[2017-01-06 09:52] LABS: INTERNATIONAL NORMALIZED RATIO 2.8 RATIO
[2017-01-06 10:27] LABS: ACANTHOCYTES OCC (NORMAL); BANDS 1 % (0-6); BICARBONATE 29.2 MEQ/L (21.0-32.0); MAGNESIUM 1.9 MG/DL (1.5-2.5); NEUTROPHIL # MANUAL DIFF 14.9 TH/MM3 (1.8-7.7); POLYS (SEG NEUTROPHILS) 90 % (16-70); POTASSIUM 4.2 MEQ/L (3.5-5.1); PROMYELOCYTES 1 % (0-0); WBC DIFF SAMPLE 100
[2017-01-06 10:28] LABS: OVALOCYTES 1+ (NORMAL)
[2017-01-06 10:29] LABS: KERATOCYTES OCC (NORMAL)
[2017-01-06 10:32] LABS: PLATELET ESTIMATE SMEAR NORMAL (NORMAL); PLATELET MORPHOLOGY NORMAL (NORMAL); SCAN/DIFF FINAL DIFF MANUAL
[2017-01-06] MEDS: CIPROFLOXACIN 250 MG TAB PO SCH ×2 (13:31→22:49)
[2017-01-06] MEDS ORDERED: WARFARIN SOD 2.5 MG TAB PO SCH (16:00)
[2017-01-06] MEDS: ATORVASTATIN 10 MG TAB PO SCH (22:48)
[2017-01-06] MEDS: GABAPENTIN 300 MG CAP PO SCH (22:49)
[2017-01-07] VITALS (9 sets, daily range): BP systolic 108–142; BP diastolic 56–66; PULSE 68–87; RESP 16–20; TEMP 97.9–98.7; O2SAT 94–98
[2017-01-07] MEDS: LEVOTHYROXINE SODIUM 75 MCG TAB PO SCH (07:23)
--- NOTE | 2017-01-07 07:30 | PD.CARD.PN ---
Subjective Subjective Remarks Telemetry showed some tachycardia around 1999 last night, patient states she stood up too quickly and became a little dizzy. She denies any chest pain, shortness breath, palpitations. (Dallin Marquez) Objective Medications Current Medications Medications (Trade) Dose Ordered Sig/Denis Route Start Time Stop Time Status Last Admin (NS Flush) 2 ml UNSCH PRN IVF 01/05/17 07:30 01/05/17 07:19 (Lipitor) 10 mg HS PO 01/05/17 21:00 01/06/17 22:48 (Cipro) 250 mg Q12H PO 01/05/17 11:00 01/06/17 22:49 (Ferrous Sulfate) 325 mg DAILY PO 01/06/17 09:00 01/06/17 09:33 (Folate) 1 mg DAILY PO 01/06/17 09:00 01/06/17 09:33 (Lasix) 20 mg BID@0900,1800 PO 01/05/17 18:00 01/06/17 18:27 (Neurontin) 300 mg HS PO 01/05/17 21:00 01/06/17 22:49 (Synthroid) 75 mcg DAILY@0600 PO 01/06/17 06:00 01/06/17 05:11 (KCl) 8 meq BID PO 01/05/17 21:00 01/06/17 22:48 (Theragran M Tab) 1 tab DAILY PO 01/06/17 09:00 01/06/17 09:32 (Coumadin) 1.25 mg DAILY@1600 PO 01/06/17 16:00 01/06/17 17:39 (Pill Splitter) 1 ea UNSCH PRN OTHER 01/05/17 12:45 (Lopressor) 50 mg Q12HR PO 01/06/17 09:00 01/06/17 22:48 (Cardizem Cd) 240 mg DAILY PO 01/06/17 09:00 01/06/17 09:33 Vital Signs / I&O Vital Signs Date Time Temp Pulse Resp B/P (MAP) Pulse Ox O2 Delivery O2 Flow Rate FiO2 01/07/17 04:34 98.0 73 18 140/65 (90) 96 01/07/17 01:13 98.4 80 19 142/66 (91) 94 01/06/17 20:30 97.9 84 17 132/70 (90) 97 01/06/17 15:57 98.0 78 18 131/68 (89) 97 01/06/17 11:40 98.3 85 16 107/60 (76) 97 01/06/17 09:15 75 01/06/17 07:40 97.9 79 16 130/69 (89) 95 I/O 01/06/17 01/06/17 01/06/17 01/07/17 01/07/17 01/07/17 07:00 15:00 23:00 07:00 15:00 23:00 # Voids 1 2 Physical Exam GENERAL: Well-developed well-nourished. In no acute distress. NECK: No carotid bruits. No JVD. CARDIOVASCULAR: Regular rate and rhythm. Mechanical murmur appreciated. RESPIRATORY: No accessory muscle use. Clear to auscultation. Breath sounds equal bilaterally. MUSCULOSKELETAL: No clubbing or cyanosis. Lower extremity lymphedema. NEUROLOGICAL: Awake and alert. Normal speech. Laboratory Laboratory Tests Test 01/06/17 08:40 White Blood Count 16.2 TH/MM3 Red Blood Count 4.08 MIL/MM3 Hemoglobin 11.4 GM/DL Hematocrit 35.2 % Mean Corpuscular Volume 86.2 FL Mean Corpuscular Hemoglobin 28.0 PG Mean Corpuscular Hemoglobin Concent 32.5 % Red Cell Distribution Width 16.4 % Platelet Count 268 TH/MM3 Mean Platelet Volume 8.3 FL Neutrophils (%) (Auto) 88.9 % Lymphocytes (%) (Auto) 3.5 % Monocytes (%) (Auto) 7.4 % Eosinophils (%) (Auto) 0.1 % Basophils (%) (Auto) 0.1 % Neutrophils # (Auto) 14.4 TH/MM3 Lymphocytes # (Auto) 0.6 TH/MM3 Monocytes # (Auto) 1.2 TH/MM3 Eosinophils # (Auto) 0.0 TH/MM3 Basophils # (Auto) 0.0 TH/MM3 CBC Comment AUTO DIFF Differential Total Cells Counted 100 Neutrophils % (Manual) 90 % Band Neutrophils % 1 % Lymphocytes % 5 % Monocytes % 3 % Neutrophils # (Manual) 14.9 TH/MM3 Promyelocytes 1 % Differential Comment FINAL DIFF MANUAL Atypical Lymphocytes % Platelet Estimate NORMAL Platelet Morphology Comment NORMAL Ovalocytes 1+ Acanthocytes OCC Keratocytes OCC Prothrombin Time 32.0 SEC Prothromb Time International Ratio 2.8 RATIO Blood Urea Nitrogen 15 MG/DL Creatinine 0.55 MG/DL Random Glucose 90 MG/DL Calcium Level 9.1 MG/DL Magnesium Level 1.9 MG/DL Sodium Level 135 MEQ/L Potassium Level 4.2 MEQ/L Chloride Level 100 MEQ/L Carbon Dioxide Level 29.2 MEQ/L Anion Gap 6 MEQ/L Estimat Glomerular Filtration Rate 105 ML/MIN (Dallin Marquez) Assessment and Plan Assessment and Plan 86-year-old female with past medical history of cardiomyopathy and AICD. She presented after AICD fired again and was found to have SVT. She was given IV Cardizem and conversion back to sinus rhythm. A. fib with RVR: Continue metoprolol, consider increasing dose. Diltiazem added. History of mechanical mitral valve replacement: INR therapeutic, continue Coumadin. (Dallin Marquez) Assessment and Plan continue current mgt DC planning available for questions over weekend but will sign off FU dr frazier (Ivan Lorenzo MD) Dallin Marquez Jan 07, 2017 07:30 Ivan Lorenzo MD Jan 07, 2017 08:52
--- NOTE | 2017-01-07 08:28 | HHI.PR ---
Subjective Remarks Pt reported having an episode of dizziness upon standing last night when she got up to go to the bathroom last night. She states that this has happened before when she gets up too quickly She had some intermittent A. fib RVR on telemetry last night Cardiology has increased Metoprolol to 75mg po BID Objective Vitals Vital Signs Date Time Temp Pulse Resp B/P (MAP) Pulse Ox O2 Delivery O2 Flow Rate FiO2 01/07/17 04:34 98.0 73 18 140/65 (90) 96 01/07/17 01:13 98.4 80 19 142/66 (91) 94 01/06/17 20:30 97.9 84 17 132/70 (90) 97 01/06/17 15:57 98.0 78 18 131/68 (89) 97 01/06/17 11:40 98.3 85 16 107/60 (76) 97 01/06/17 09:15 75 Result Diagram: 01/06/17 0840 01/06/17 0840 Other Results Laboratory Tests Test 01/05/17 10:25 01/06/17 08:40 Urine Color YELLOW Urine Turbidity HAZY Urine pH 5.0 Urine Specific [place] 1.020 Urine Protein TRACE mg/dL Urine Glucose (UA) NEG mg/dL Urine Ketones NEG mg/dL Urine Occult Blood NEG Urine Nitrite NEG Urine Bilirubin NEG Urine Urobilinogen LESS THAN 2.0 MG/DL Urine Leukocyte Esterase MOD Urine RBC 1 /hpf Urine WBC 8 /hpf Urine Squamous Epithelial Cells 1 /hpf Urine Hyaline Casts 3 /lpf Urine Mucus FEW /lpf Microscopic Urinalysis Comment CULT NOT INDICATED White Blood Count 16.2 TH/MM3 Red Blood Count 4.08 MIL/MM3 Hemoglobin 11.4 GM/DL Hematocrit 35.2 % Mean Corpuscular Volume 86.2 FL Mean Corpuscular Hemoglobin 28.0 PG Mean Corpuscular Hemoglobin Concent 32.5 % Red Cell Distribution Width 16.4 % Platelet Count 268 TH/MM3 Mean Platelet Volume 8.3 FL Neutrophils (%) (Auto) 88.9 % Lymphocytes (%) (Auto) 3.5 % Monocytes (%) (Auto) 7.4 % Eosinophils (%) (Auto) 0.1 % Basophils (%) (Auto) 0.1 % Neutrophils # (Auto) 14.4 TH/MM3 Lymphocytes # (Auto) 0.6 TH/MM3 Monocytes # (Auto) 1.2 TH/MM3 Eosinophils # (Auto) 0.0 TH/MM3 Basophils # (Auto) 0.0 TH/MM3 CBC Comment AUTO DIFF Differential Total Cells Counted 100 Neutrophils % (Manual) 90 % Band Neutrophils % 1 % Lymphocytes % 5 % Monocytes % 3 % Neutrophils # (Manual) 14.9 TH/MM3 Promyelocytes 1 % Differential Comment FINAL DIFF MANUAL Atypical Lymphocytes % Platelet Estimate NORMAL Platelet Morphology Comment NORMAL Ovalocytes 1+ Acanthocytes OCC Keratocytes OCC Prothrombin Time 32.0 SEC Prothromb Time International Ratio 2.8 RATIO Blood Urea Nitrogen 15 MG/DL Creatinine 0.55 MG/DL Random Glucose 90 MG/DL Calcium Level 9.1 MG/DL Magnesium Level 1.9 MG/DL Sodium Level 135 MEQ/L Potassium Level 4.2 MEQ/L Chloride Level 100 MEQ/L Carbon Dioxide Level 29.2 MEQ/L Anion Gap 6 MEQ/L Estimat Glomerular Filtration Rate 105 ML/MIN Imaging Last Impressions Chest X-Ray 01/05/17 0724 Signed Impressions: Service Date/Time: Tuesday, January 05, 2017 07:50 - CONCLUSION: Cardiomegaly. No acute infiltrate or effusion. Carter Rausch Jr., MD Objective Remarks General: NAD, AAox3 Chest: CTA Cardiac: Irregular Abd: +BS, soft ND/NT Ext: No edema A/P Problem List: (1) AICD discharge ICD Codes: Z45.02 - Encounter for adjustment and management of automatic implantable cardiac defibrillator Status: Acute Plan: Pt is an 86 y/o female with atrial fibrillation on chronic anticoagulation with Coumadin, Cardiomyopathy with AICD, CHF with EF 25-30%. She was recently admitted from 01/01/17 to 01/04/17 for anemia, defibrillator firing and A. fib RVR. During that admission was was given IV Cardizem but its use was limited due to hypotension and was weaned off. She was placed on Metoprolol 50mg po BID and Digoxin. Pt was transfused with 1 unit of PRBCs and IV iron during that admission. She was also found to have a UTI with urine culture growing Klebsiella and was discharged on Cipro. Pt was discharged home yesterday and reported that this morning her AICD fired twice and EMS was called. When EMS initially arrived they noticed the rate but it reportedly her HR in the 160s. Her AICD fired again while walking to the ambulance They transported her to the ED but no medication was given. However soon after arriving to the emergency room heart rate went up to the 180s to 190s again. Cardiology was consulted and pt was administered IV Cardizem and given Cardizem 90mg po x one dose. Pt still in A. fib with HR in the 80's at the time of admission. Atrial Fibrillation with RVR Defibrillator firing - Pt was admitted with tachycardia and reported firing of her defibrillator - Patient was shocked by her defibrillator multiple times prior to her last admission and at that time the device was interrogated and revealed 9 VF zone with 9 shocks, 3 in VT- 2 zone with 6 shocks and 48 classed SVT - Pt was discharged on Metoprolol 50mg Q12H and Digoxin 0.125mg po daily. - Pt readmitted with A. fib RVR and patient given Cardizem 25mg IV x one dose and Cardizem 90mg po x one dose int he ED with adequate rate control. - Dig Level at admission was subtherapeutic at 0.6 - Pt was continued on oral Cardizem 60mg Q6H following admission and will convert to Cardizem CD 240mg po daily - Pt was seen by Cardiology and was resumed on her Metoprolol 50mg po BID in addition to the Cardizem on 01/06 - INR 2.8 on 01/06. Pt is on Coumadin 1.25mg po daily as she has been on Abx. Await repeat INR this morning. - Pt has continued to have episodes of A. 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 Niño outpatient - During recent admission pt received 1 unit PRBCs and Iron infusion - Per outpatient records, outpatient iron studies have shown a very low iron saturation of 10%. She has had extensive work-up including thyroid function testing, B12 and folate testing which was all normal. Her LDH was slightly elevated , haptoglobin was low and direct Iza test was negative. 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 Previously reported neg stool guiac by pcp - Pt follows with Dr Niño Hypothyroidism - Continue home levothyroxine - Last TSH check 12/20/16 2.040 Hyperlipidemia - continue patient's home statin regiment HTN - Hold ARB for now. UTI with Klebsiella Leukocytosis - WBC 18.5 at admission - Pt previously noted to have UTI with culture growing Klebsiella. - Pt was discharged on Cipro, this was continued. (2) Atrial fibrillation with RVR ICD Codes: I48.91 - Unspecified atrial fibrillation Status: Acute (3) Leukocytosis ICD Codes: D72.829 - Elevated white blood cell count, unspecified Status: Acute (4) UTI (urinary tract infection) ICD Codes: N39.0 - Urinary tract infection, site not specified (5) Cardiomyopathy ICD Codes: I42.9 - Cardiomyopathy, unspecified Status: Chronic Assessment and Plan Patient examined. Assessment and plan formulated with Becky Patton PA-C. I agree with the above. cont cardizem. bb increased for breakthrough afib/rvr hold coumadin and recheck inr. cont abx for uti updated family at bedside. dc once afib controlled. Problem Qualifiers (1) Leukocytosis: Qualified Codes: D72.829 - Elevated white blood cell count, unspecified Becky Patton Jan 07, 2017 08:27 Dilshad Cabrera MD Jan 07, 2017 15:09
[2017-01-07 09:36] LABS: AUTOMATED NEUTROPHIL # 16.9 TH/MM3 (1.8-7.7); BASOPHIL # 0.1 TH/MM3 (0-0.2); BASOPHIL % 0.3 % (0.0-2.0); EOSINOPHIL % 0.1 % (0.0-4.0); HEMATOCRIT 34.2 % (35.0-46.0); LYMPH % 2.9 % (9.0-44.0); LYMPHOCYTE # 0.6 TH/MM3 (1.0-4.8); MEAN CELL VOLUME 86.2 FL (80.0-100.0); MEAN CORPUSCULAR HEMOGLOBIN 27.9 PG (27.0-34.0); MEAN CORPUSCULAR HGB CONC 32.3 % (32.0-36.0); MONO % 6.2 % (0.0-8.0); NEUT % 90.5 % (16.0-70.0); PLATELET COUNT 262 TH/MM3 (150-450); RED BLOOD COUNT 3.97 MIL/MM3 (4.00-5.30); WHITE BLOOD COUNT 18.7 TH/MM3 (4.0-11.0)
[2017-01-07 09:38] LABS: HEMO FLAGS AUTO DIFF
[2017-01-07 09:41] LABS: INTERNATIONAL NORMALIZED RATIO 3.2 RATIO; PROTHROMBIN TIME - PATIENT 32.2 SEC (9.8-11.6)
[2017-01-07] MEDS: MULTIVITAMINS/MINERALS THERAPEUTIC TAB PO SCH (10:07)
[2017-01-07] MEDS: FOLIC ACID 1 MG TAB PO SCH (10:07)
[2017-01-07] MEDS: CIPROFLOXACIN 250 MG TAB PO SCH ×2 (10:07→22:08)
[2017-01-07] MEDS: POTASSIUM CHLORIDE 8 MEQ CONTROLLED RELEASE TAB PO SCH ×2 (10:07→22:08)
[2017-01-07] MEDS: FERROUS SULFATE 325 MG (65 MG ELEMENTAL IRON) TAB PO SCH (10:08)
[2017-01-07] MEDS: METOPROLOL TARTRATE 25 MG TAB PO SCH ×2 (10:09→22:07)
[2017-01-07] MEDS: FUROSEMIDE 20 MG TAB PO SCH ×2 (10:11→17:03)
[2017-01-07] MEDS: DILTIAZEM-CD 240 MG CAP ER PO SCH (10:11)
[2017-01-07 10:17] LABS: ACANTHOCYTES OCC (NORMAL); KERATOCYTES OCC (NORMAL); OVALOCYTES 1+ (NORMAL)
[2017-01-07 10:18] LABS: PLATELET ESTIMATE SMEAR NORMAL (NORMAL); PLATELET MORPHOLOGY NORMAL (NORMAL); SCAN/DIFF AUTO DIFF CONFIRMED; TOXIC GRANULATION 1+ (NORMAL)
[2017-01-07] MEDS: ATORVASTATIN 10 MG TAB PO SCH (22:07)
[2017-01-07] MEDS: GABAPENTIN 300 MG CAP PO SCH (22:07)
[2017-01-08] VITALS (7 sets, daily range): BP systolic 107–117; BP diastolic 55–68; PULSE 72–115; RESP 16–20; TEMP 98–99.8; O2SAT 94–97
[2017-01-08] MEDS: LEVOTHYROXINE SODIUM 75 MCG TAB PO SCH (05:25)
[2017-01-08 07:53] LABS: AUTOMATED NEUTROPHIL # 24.4 TH/MM3 (1.8-7.7); BASOPHIL # 0.1 TH/MM3 (0-0.2); BASOPHIL % 0.2 % (0.0-2.0); HEMO FLAGS DIFF FINAL; LYMPH % 2.6 % (9.0-44.0); LYMPHOCYTE # 0.7 TH/MM3 (1.0-4.8); MEAN CELL VOLUME 86.7 FL (80.0-100.0); MEAN CORPUSCULAR HGB CONC 32.3 % (32.0-36.0); MONO % 7.5 % (0.0-8.0); NEUT % 89.7 % (16.0-70.0); PLATELET COUNT 254 TH/MM3 (150-450); RED BLOOD COUNT 4.03 MIL/MM3 (4.00-5.30); RED CELL DISTRIBUTION WIDTH 17.3 % (11.6-17.2); WHITE BLOOD COUNT 27.2 TH/MM3 (4.0-11.0)
[2017-01-08 07:58] LABS: INTERNATIONAL NORMALIZED RATIO 3.5 RATIO; PROTHROMBIN TIME - PATIENT 35.3 SEC (9.8-11.6)
[2017-01-08] MEDS: POTASSIUM CHLORIDE 8 MEQ CONTROLLED RELEASE TAB PO SCH ×2 (09:00→20:04)
[2017-01-08] MEDS: MULTIVITAMINS/MINERALS THERAPEUTIC TAB PO SCH (09:30)
[2017-01-08] MEDS: FERROUS SULFATE 325 MG (65 MG ELEMENTAL IRON) TAB PO SCH (09:30)
[2017-01-08] MEDS: DILTIAZEM-CD 240 MG CAP ER PO SCH (09:30)
[2017-01-08] MEDS: FOLIC ACID 1 MG TAB PO SCH (09:30)
[2017-01-08] MEDS: METOPROLOL TARTRATE 25 MG TAB PO SCH ×2 (09:31→20:03)
[2017-01-08] MEDS: FUROSEMIDE 20 MG TAB PO SCH ×2 (09:38→18:00)
[2017-01-08] MEDS: CIPROFLOXACIN 250 MG TAB PO SCH ×2 (13:35→23:39)
--- NOTE | 2017-01-08 14:12 | HHI.PR ---
Subjective Remarks Pt overall with better control but she had some RVR this morning for about 10 mins She has been afebrile Some slight cough, nonproductive No dysuria or urinary frequency Her LE wraps were removed and a small wound on left lateral calf but does not appear infected. Objective Vitals Vital Signs Date Time Temp Pulse Resp B/P (MAP) Pulse Ox O2 Delivery O2 Flow Rate FiO2 01/08/17 11:55 72 01/08/17 08:00 98.2 115 20 107/68 (81) 94 01/08/17 04:00 72 01/08/17 04:00 98.8 80 18 109/62 (78) 96 01/08/17 00:00 98.0 77 20 113/62 (79) 97 01/08/17 00:00 77 01/07/17 20:00 83 01/07/17 20:00 98.7 87 20 129/61 (83) 97 01/07/17 16:13 81 01/07/17 16:03 98.6 78 18 125/65 (85) 95 Result Diagram: 01/08/17 0745 01/06/17 0840 Other Results Laboratory Tests Test 01/07/17 08:50 01/08/17 07:45 White Blood Count 18.7 TH/MM3 27.2 TH/MM3 Red Blood Count 3.97 MIL/MM3 4.03 MIL/MM3 Hemoglobin 11.1 GM/DL 11.3 GM/DL Hematocrit 34.2 % 35.0 % Mean Corpuscular Volume 86.2 FL 86.7 FL Mean Corpuscular Hemoglobin 27.9 PG 28.0 PG Mean Corpuscular Hemoglobin Concent 32.3 % 32.3 % Red Cell Distribution Width 17.0 % 17.3 % Platelet Count 262 TH/MM3 254 TH/MM3 Mean Platelet Volume 8.2 FL 7.9 FL Neutrophils (%) (Auto) 90.5 % 89.7 % Lymphocytes (%) (Auto) 2.9 % 2.6 % Monocytes (%) (Auto) 6.2 % 7.5 % Eosinophils (%) (Auto) 0.1 % 0.0 % Basophils (%) (Auto) 0.3 % 0.2 % Neutrophils # (Auto) 16.9 TH/MM3 24.4 TH/MM3 Lymphocytes # (Auto) 0.6 TH/MM3 0.7 TH/MM3 Monocytes # (Auto) 1.2 TH/MM3 2.0 TH/MM3 Eosinophils # (Auto) 0.0 TH/MM3 0.0 TH/MM3 Basophils # (Auto) 0.1 TH/MM3 0.1 TH/MM3 CBC Comment AUTO DIFF DIFF FINAL Differential Comment AUTO DIFF CONFIRMED Toxic Granulation 1+ Platelet Estimate NORMAL Platelet Morphology Comment NORMAL Ovalocytes 1+ Acanthocytes OCC Keratocytes OCC Prothrombin Time 32.2 SEC 35.3 SEC Prothromb Time International Ratio 3.2 RATIO 3.5 RATIO Imaging Last Impressions Chest X-Ray 01/05/17 0732 Signed Impressions: Service Date/Time: Tuesday, January 05, 2017 07:50 - CONCLUSION: Cardiomegaly. No acute infiltrate or effusion. Carter Rausch Jr., MD Objective Remarks General: NAD, AAox3 Chest: Fine crackles at the left base Cardiac: Irregular Abd: +BS, soft ND/NT Ext: Minimal edema A/P Problem List: (1) AICD discharge ICD Codes: Z45.02 - Encounter for adjustment and management of automatic implantable cardiac defibrillator Status: Acute Plan: Pt is an 86 y/o female with atrial fibrillation on chronic anticoagulation with Coumadin, Cardiomyopathy with AICD, CHF with EF 25-30%. She was recently admitted from 01/01/17 to 01/04/17 for anemia, defibrillator firing and A. fib RVR. During that admission was was given IV Cardizem but its use was limited due to hypotension and was weaned off. She was placed on Metoprolol 50mg po BID and Digoxin. Pt was transfused with 1 unit of PRBCs and IV iron during that admission. She was also found to have a UTI with urine culture growing Klebsiella and was discharged on Cipro. Pt was discharged home yesterday and reported that this morning her AICD fired twice and EMS was called. When EMS initially arrived they noticed the rate but it reportedly her HR in the 160s. Her AICD fired again while walking to the ambulance They transported her to the ED but no medication was given. However soon after arriving to the emergency room heart rate went up to the 180s to 190s again. Cardiology was consulted and pt was administered IV Cardizem and given Cardizem 90mg po x one dose. Pt still in A. fib with HR in the 80's at the time of admission. Atrial Fibrillation with RVR Defibrillator firing - Pt was admitted with tachycardia and reported firing of her defibrillator - Patient was shocked by her defibrillator multiple times prior to her last admission and at that time the device was interrogated and revealed 9 VF zone with 9 shocks, 3 in VT- 2 zone with 6 shocks and 48 classed SVT - Pt was discharged on Metoprolol 50mg Q12H and Digoxin 0.125mg po daily. - Pt readmitted with A. fib RVR and patient given Cardizem 25mg IV x one dose and Cardizem 90mg po x one dose int he ED with adequate rate control. - Dig Level at admission was subtherapeutic at 0.6 - Pt was continued on oral Cardizem 60mg Q6H following admission and will convert to Cardizem CD 240mg po daily - Pt was seen by Cardiology and was resumed on her Metoprolol 50mg po BID in addition to the Cardizem on 01/06 - Pt has continued to have episodes of A. fib RVR, Metoprolol was increased to 75mg po BID on 01/07/17 by Cardiology - INR increased to 3.2 on 01/07 and repeat on 01/08 was 3.5. 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 Niño outpatient - During recent admission pt received 1 unit PRBCs and Iron infusion - Per outpatient records, outpatient iron studies have shown a very low iron saturation of 10%. She has had extensive work-up including thyroid function testing, B12 and folate testing which was all normal. Her LDH was slightly elevated , haptoglobin was low and direct Iza test was negative. 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 Previously reported neg stool guiac by pcp - Pt follows with Dr Niño Hypothyroidism - Continue home levothyroxine - Last TSH check 12/20/16 2.040 Hyperlipidemia - continue patient's home statin regiment HTN - Hold ARB for now. UTI with Klebsiella Leukocytosis - WBC 18.5 at admission - Pt previously noted to have UTI with culture growing Klebsiella. - Pt was discharged on Cipro, this was continued, to be completed on . - Repeat labs on 01/08 with WBC count 27.2 - Repeat UA - CXR - Pt has been afebrile (2) Atrial fibrillation with RVR ICD Codes: I48.91 - Unspecified atrial fibrillation Status: Acute (3) Leukocytosis ICD Codes: D72.829 - Elevated white blood cell count, unspecified Status: Acute (4) UTI (urinary tract infection) ICD Codes: N39.0 - Urinary tract infection, site not specified (5) Cardiomyopathy ICD Codes: I42.9 - Cardiomyopathy, unspecified Status: Chronic Assessment and Plan Patient examined. Assessment and plan formulated with Becky Patton PA-C. Problem Qualifiers (1) Leukocytosis: Qualified Codes: D72.829 - Elevated white blood cell count, unspecified Becky Patton Jan 08, 2017 14:12 Rey Daniels DO Jan 12, 2017 23:28
--- NOTE | 2017-01-08 14:50 | RADRPT ---
EXAM DATE/TIME: 01/08/2017 14:26 [facility] COMPARISON: CHEST SINGLE AP, January 05, 2017, 7:50. INDICATIONS : Cough symptoms. MEDICAL HISTORY : Myocardial infarction. SURGICAL HISTORY : Pacemaker. CABG. ENCOUNTER: [facility] ACUITY: 1 day PAIN SCORE: 0/10 LOCATION: Bilateral chest FINDINGS: Post surgical features of prior median sternotomy with cardiac valve replacement. 2-lead AICD device in place. Cardiac silhouette is enlarged. No new focal pleural or peripheral opacities. Bony thorax i s intact. CONCLUSION: 1. Post surgical features with compensated cardiomegaly. 2. No acute abnormality or significant interval change. Isiah Angelo MD on January 08, 2017 at 14:47 Board Certified Radiologist. This report was verified electronically.
[2017-01-08] MEDS ORDERED: WARFARIN SOD 2.5 MG TAB PO SCH (16:00)
--- NOTE | 2017-01-08 17:43 | RADRPT ---
EXAM DATE/TIME: 01/08/2017 17:13 [facility] COMPARISON: No previous studies available for comparison. INDICATIONS : Left leg pain. MEDICAL HISTORY : Hypothyroidism. Congestive heart failure. Hypercholesterolemia. Bilateral hearing aids. Transient ischemic attack. Anticoagulant therapy. Atrial fibrilation. Arthritis. SURGICAL HISTORY : Pacemaker. Mitral valve replacement. Chest surgery. ENCOUNTER: Initial ACUITY: 1 day PAIN SCORE: 2/10 LOCATION: Left leg. TECHNIQUE: Venous ultrasound of the leg was performed from the inguinal ligament to the proximal calf. Real-francisco e, color Doppler and spectral tracing, compression and augmentation techniques were used. FINDINGS: There is normal compressibility of the deep venous system from the inguinal region to the proximal ca lf. No echogenic clot is seen in the lumen of the common femoral, femoral, popliteal, and posterior tibial veins. There is a normal response of the venous system to proximal and distal augmentation an d respiration. CONCLUSION: No venous thrombosis of the left lower extremity. Willis Rob MD on January 08, 2017 at 17:40 Board Certified Radiologist. This report was verified electronically.
[2017-01-08] MEDS: ATORVASTATIN 10 MG TAB PO SCH (20:04)
[2017-01-08] MEDS: GABAPENTIN 300 MG CAP PO SCH (20:04)
[2017-01-09] VITALS (10 sets, daily range): BP systolic 114–127; BP diastolic 55–67; PULSE 70–105; RESP 16–20; TEMP 97.3–98.8; O2SAT 95–98
[2017-01-09] MEDS: LEVOTHYROXINE SODIUM 75 MCG TAB PO SCH ×2 (04:52→09:54)
[2017-01-09] MEDS: POTASSIUM CHLORIDE 8 MEQ CONTROLLED RELEASE TAB PO SCH ×2 (09:00→21:43)
[2017-01-09 09:14] LABS: AUTOMATED NEUTROPHIL # 26.7 TH/MM3 (1.8-7.7); HEMATOCRIT 31.4 % (35.0-46.0); LYMPHOCYTE # 0.6 TH/MM3 (1.0-4.8); MEAN CELL VOLUME 85.6 FL (80.0-100.0); MEAN CORPUSCULAR HEMOGLOBIN 27.7 PG (27.0-34.0); MEAN CORPUSCULAR HGB CONC 32.4 % (32.0-36.0); MONO % 3.1 % (0.0-8.0); NEUT % 94.9 % (16.0-70.0); PLATELET COUNT 218 TH/MM3 (150-450); RED BLOOD COUNT 3.67 MIL/MM3 (4.00-5.30); RED CELL DISTRIBUTION WIDTH 17.1 % (11.6-17.2); WHITE BLOOD COUNT 28.1 TH/MM3 (4.0-11.0)
[2017-01-09 09:16] LABS: HEMO FLAGS AUTO DIFF
[2017-01-09 09:17] LABS: INTERNATIONAL NORMALIZED RATIO 2.5 RATIO; PROTHROMBIN TIME - PATIENT 25.1 SEC (9.8-11.6)
[2017-01-09 09:30] LABS: BLOOD, URINE NEG (NEG); COMMENT (UR) CULT NOT INDICATED; CULTURE IF INDICATED CULT NOT INDICATED; GLUCOSE,URINE NEG (NEG); HYALINE CAST, URINE 4 /lpf (RARE); KETONE, URINE NEG (NEG); MUCUS URINE FEW /lpf (OCC); NITRITE,URINE NEG (NEG); SQUAMOUS EPITHELIAL CELL URINE 1 /hpf (0-5); URINE COLOR YELLOW (YELLW/STRAW)
[2017-01-09] MEDS: METOPROLOL TARTRATE 25 MG TAB PO SCH ×2 (09:53→21:43)
[2017-01-09] MEDS: FUROSEMIDE 20 MG TAB PO SCH ×2 (09:53→17:14)
[2017-01-09] MEDS: MULTIVITAMINS/MINERALS THERAPEUTIC TAB PO SCH (09:53)
[2017-01-09] MEDS: DILTIAZEM-CD 240 MG CAP ER PO SCH (09:53)
[2017-01-09] MEDS: CIPROFLOXACIN 250 MG TAB PO SCH (09:54)
[2017-01-09] MEDS: SODIUM CHLORIDE 0.9% FLUSH 10 ML FLUSH IVF PRN ×2 (09:54→21:56)
[2017-01-09] MEDS: FERROUS SULFATE 325 MG (65 MG ELEMENTAL IRON) TAB PO SCH (09:54)
[2017-01-09] MEDS: FOLIC ACID 1 MG TAB PO SCH (09:54)
[2017-01-09 10:08] LABS: BANDS 1 % (0-6); NEUTROPHIL # MANUAL DIFF 26.7 TH/MM3 (1.8-7.7); OVALOCYTES 1+ (NORMAL); PLATELET ESTIMATE SMEAR NORMAL (NORMAL); PLATELET MORPHOLOGY NORMAL (NORMAL); POLYS (SEG NEUTROPHILS) 94 % (16-70); SCAN/DIFF FINAL DIFF MANUAL; WBC DIFF SAMPLE 100
--- NOTE | 2017-01-09 13:13 | HHI.PR ---
Subjective Remarks Pt had a BM this afternoon She walked well with PT and is sitting in the chair at the time of examination On telemetry her HR was in the 120-130's for several hours this morning. Currently her HR is in the 80's Objective Vitals Vital Signs Date Time Temp Pulse Resp B/P (MAP) Pulse Ox O2 Delivery O2 Flow Rate FiO2 01/09/17 09:25 Room Air 01/09/17 05:00 97.5 105 18 127/67 (87) 95 01/09/17 04:14 93 01/09/17 04:00 Room Air 01/09/17 00:02 75 01/09/17 00:00 Room Air 01/09/17 00:00 98.3 84 16 117/65 (82) 97 01/08/17 20:00 Room Air 01/08/17 20:00 82 01/08/17 20:00 99.8 92 16 112/55 (74) 94 01/08/17 16:00 98.0 75 20 117/62 (80) 96 Result Diagram: 01/09/17 0820 01/06/17 0840 Other Results Laboratory Tests Test 01/08/17 07:45 01/09/17 08:10 01/09/17 08:20 White Blood Count 27.2 TH/MM3 28.1 TH/MM3 Red Blood Count 4.03 MIL/MM3 3.67 MIL/MM3 Hemoglobin 11.3 GM/DL 10.2 GM/DL Hematocrit 35.0 % 31.4 % Mean Corpuscular Volume 86.7 FL 85.6 FL Mean Corpuscular Hemoglobin 28.0 PG 27.7 PG Mean Corpuscular Hemoglobin Concent 32.3 % 32.4 % Red Cell Distribution Width 17.3 % 17.1 % Platelet Count 254 TH/MM3 218 TH/MM3 Mean Platelet Volume 7.9 FL 8.3 FL Neutrophils (%) (Auto) 89.7 % 94.9 % Lymphocytes (%) (Auto) 2.6 % 2.0 % Monocytes (%) (Auto) 7.5 % 3.1 % Eosinophils (%) (Auto) 0.0 % 0.0 % Basophils (%) (Auto) 0.2 % 0.0 % Neutrophils # (Auto) 24.4 TH/MM3 26.7 TH/MM3 Lymphocytes # (Auto) 0.7 TH/MM3 0.6 TH/MM3 Monocytes # (Auto) 2.0 TH/MM3 0.9 TH/MM3 Eosinophils # (Auto) 0.0 TH/MM3 0.0 TH/MM3 Basophils # (Auto) 0.1 TH/MM3 0.0 TH/MM3 CBC Comment DIFF FINAL AUTO DIFF Differential Comment FINAL DIFF MANUAL Prothrombin Time 35.3 SEC 25.1 SEC Prothromb Time International Ratio 3.5 RATIO 2.5 RATIO Urine Color YELLOW Urine Turbidity CLEAR Urine pH 5.0 Urine Specific [place] 1.018 Urine Protein NEG mg/dL Urine Glucose (UA) NEG mg/dL Urine Ketones NEG mg/dL Urine Occult Blood NEG Urine Nitrite NEG Urine Bilirubin NEG Urine Urobilinogen LESS THAN 2.0 MG/DL Urine Leukocyte Esterase NEG Urine RBC LESS THAN 1 /hpf Urine WBC 1 /hpf Urine Squamous Epithelial Cells 1 /hpf Urine Hyaline Casts 4 /lpf Urine Mucus FEW /lpf Microscopic Urinalysis Comment CULT NOT INDICATED Differential Total Cells Counted 100 Neutrophils % (Manual) 94 % Band Neutrophils % 1 % Lymphocytes % 2 % Monocytes % 3 % Neutrophils # (Manual) 26.7 TH/MM3 Platelet Estimate NORMAL Platelet Morphology Comment NORMAL Ovalocytes 1+ Imaging Last Impressions Chest X-Ray 01/05/17 0724 Signed Impressions: Service Date/Time: Tuesday, January 05, 2017 07:50 - CONCLUSION: Cardiomegaly. No acute infiltrate or effusion. Carter Rausch Jr., MD Objective Remarks General: NAD, AAox3 Chest: CTA Cardiac: Irregular Abd: +BS, soft ND/NT Ext: Minimal edema A/P Problem List: (1) AICD discharge ICD Codes: Z45.02 - Encounter for adjustment and management of automatic implantable cardiac defibrillator Status: Acute Plan: Pt is an 86 y/o female with atrial fibrillation on chronic anticoagulation with Coumadin, Cardiomyopathy with AICD, CHF with EF 25-30%. She was recently admitted from 01/01/17 to 01/04/17 for anemia, defibrillator firing and A. fib RVR. During that admission was was given IV Cardizem but its use was limited due to hypotension and was weaned off. She was placed on Metoprolol 50mg po BID and Digoxin. Pt was transfused with 1 unit of PRBCs and IV iron during that admission. She was also found to have a UTI with urine culture growing Klebsiella and was discharged on Cipro. Pt was discharged home yesterday and reported that this morning her AICD fired twice and EMS was called. When EMS initially arrived they noticed the rate but it reportedly her HR in the 160s. Her AICD fired again while walking to the ambulance They transported her to the ED but no medication was given. However soon after arriving to the emergency room heart rate went up to the 180s to 190s again. Cardiology was consulted and pt was administered IV Cardizem and given Cardizem 90mg po x one dose. Pt still in A. fib with HR in the 80's at the time of admission. Atrial Fibrillation with RVR Defibrillator firing - Pt was admitted with tachycardia and reported firing of her defibrillator - Patient was shocked by her defibrillator multiple times prior to her last admission and at that time the device was interrogated and revealed 9 VF zone with 9 shocks, 3 in VT- 2 zone with 6 shocks and 48 classed SVT - Pt was discharged on Metoprolol 50mg Q12H and Digoxin 0.125mg po daily. - Pt readmitted with A. fib RVR and patient given Cardizem 25mg IV x one dose and Cardizem 90mg po x one dose int he ED with adequate rate control. - Dig Level at admission was subtherapeutic at 0.6 - Pt was continued on oral Cardizem 60mg Q6H following admission and was convert to Cardizem CD 240mg po daily on 01/06 - Pt was seen by Cardiology and was resumed on her Metoprolol 50mg po BID in addition to the Cardizem on 01/06 - Pt has continued to have episodes of A. fib RVR, Metoprolol was increased to 75mg po BID on 01/07/17 by Cardiology - INR increased to 3.2 on 01/07 and repeat on 01/08 was 3.5. INR decreased to 2.5 on 01/09, Coumadin resumed at 1.25mg daily on 01/09 - Pts HR on telemetry on 01/09 was not well controlled. FOr several hours this morning her HR was in the 120-130's. - Her BP has been low normal so not a lot of room to increase on the Cardizem or Metoprolol. 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 Niño outpatient - During recent admission pt received 1 unit PRBCs and Iron infusion - Per outpatient records, outpatient iron studies have shown a very low iron saturation of 10%. She has had extensive work-up including thyroid function testing, B12 and folate testing which was all normal. Her LDH was slightly elevated , haptoglobin was low and direct Iza test was negative. 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 Previously reported neg stool guaiac by PCP - Pt follows with Dr Niño Hypothyroidism - Continue home levothyroxine - Last TSH check 12/20/16 2.040 Hyperlipidemia - continue patient's home statin regiment HTN - Hold ARB for now. UTI with Klebsiella Leukocytosis - WBC 18.5 at admission - Pt previously noted to have UTI with culture growing Klebsiella. - Pt was discharged on Cipro, this was continued, to be completed on . - Repeat labs on 01/08 with WBC count 27.2 and on 01/09 was 28 - Repeat UA was negative. - Cipro completed on 01/09 - CXR (01/08) --> Post surgical features with compensated cardiomegaly. NO acute abnormality or significant interval change. - Pt had low grade temp of 99.8 on 01/08 - Blood cultures x 2 - Peripheral blood smear ordered. Pts brother reportedly had leukemia (2) Atrial fibrillation with RVR ICD Codes: I48.91 - Unspecified atrial fibrillation Status: Acute (3) Leukocytosis ICD Codes: D72.829 - Elevated white blood cell count, unspecified Status: Acute (4) UTI (urinary tract infection) ICD Codes: N39.0 - Urinary tract infection, site not specified (5) Cardiomyopathy ICD Codes: I42.9 - Cardiomyopathy, unspecified Status: Chronic Assessment and Plan Patient examined. Assessment and plan formulated with Becky Patton PA-C. I agree with the above. Problem Qualifiers (1) Leukocytosis: Qualified Codes: D72.829 - Elevated white blood cell count, unspecified Becky Patton Jan 09, 2017 13:13 Rey Daniels DO Jan 12, 2017 23:28
[2017-01-09] MEDS ORDERED: DIGOXIN 0.5 MG/2 ML VIAL IV PUSH ONE (13:30)
[2017-01-09] MEDS: WARFARIN SOD 2.5 MG TAB PO SCH (15:05)
[2017-01-09] MEDS: GABAPENTIN 300 MG CAP PO SCH (21:42)
[2017-01-09] MEDS: ATORVASTATIN 10 MG TAB PO SCH (21:43)
[2017-01-09] MEDS: DIGOXIN 0.5 MG/2 ML VIAL IV PUSH SCH (21:55)
[2017-01-10] VITALS (8 sets, daily range): BP systolic 107–119; BP diastolic 55–72; PULSE 69–100; RESP 16–19; TEMP 97.6–98.4; O2SAT 96–97
[2017-01-10 07:20] LABS: AUTOMATED NEUTROPHIL # 25.3 TH/MM3 (1.8-7.7); EOSINOPHIL % 0.1 % (0.0-4.0); HEMATOCRIT 30.6 % (35.0-46.0); LYMPHOCYTE # 0.5 TH/MM3 (1.0-4.8); MEAN CELL VOLUME 85.7 FL (80.0-100.0); MEAN CORPUSCULAR HEMOGLOBIN 27.3 PG (27.0-34.0); MEAN CORPUSCULAR HGB CONC 31.9 % (32.0-36.0); MONO % 3.8 % (0.0-8.0); NEUT % 94.1 % (16.0-70.0); PLATELET COUNT 207 TH/MM3 (150-450); RED BLOOD COUNT 3.58 MIL/MM3 (4.00-5.30); RED CELL DISTRIBUTION WIDTH 17.6 % (11.6-17.2); WHITE BLOOD COUNT 26.9 TH/MM3 (4.0-11.0)
[2017-01-10 07:22] LABS: HEMO FLAGS AUTO DIFF
[2017-01-10 07:47] LABS: ANION GAP 7 MEQ/L (5-15); AST (GOT) 18 U/L (15-37); BICARBONATE 25.1 MEQ/L (21.0-32.0); BLOOD UREA NITROGEN 21 MG/DL (7-18); CHLORIDE 100 MEQ/L (98-107); GLOMERULAR FILTRATION RATE 97 ML/MIN (>89); MAGNESIUM 1.9 MG/DL (1.5-2.5); SODIUM (NA) 132 MEQ/L (136-145)
[2017-01-10 07:51] LABS: INTERNATIONAL NORMALIZED RATIO 2.6 RATIO; PROTHROMBIN TIME - PATIENT 26.4 SEC (9.8-11.6)
[2017-01-10 08:03] LABS: ALKALINE PHOSPHATASE 86 U/L (45-117); ALT (GPT) 14 U/L (10-53); DIGOXIN 2.3 NG/ML (0.8-2.0); TOTAL BILIRUBIN ADULT 0.7 MG/DL (0.2-1.0)
--- NOTE | 2017-01-10 08:20 | PD.CARD.PN ---
Subjective Subjective Remarks Patient had some rapid A. fib in the 120s over the weekend. She denies any symptoms with this; no palpitations, chest pain, or shortness of breath. She was loaded with Dr. Potter. Heart rate has been well controlled overnight. Objective Medications Current Medications Medications (Trade) Dose Ordered Sig/Denis Route Start Time Stop Time Status Last Admin (NS Flush) 2 ml UNSCH PRN IVF 01/05/17 07:30 01/09/17 21:56 (Lipitor) 10 mg HS PO 01/05/17 21:00 01/09/17 21:43 (Ferrous Sulfate) 325 mg DAILY PO 01/06/17 09:00 01/09/17 09:54 (Folate) 1 mg DAILY PO 01/06/17 09:00 01/09/17 09:54 (Lasix) 20 mg BID@0900,1800 PO 01/05/17 18:00 01/09/17 17:14 (Neurontin) 300 mg HS PO 01/05/17 21:00 01/09/17 21:42 (Synthroid) 75 mcg DAILY@0600 PO 01/06/17 06:00 01/09/17 09:54 (KCl) 8 meq BID PO 01/05/17 21:00 01/09/17 21:43 (Theragran M Tab) 1 tab DAILY PO 01/06/17 09:00 01/09/17 09:53 (Pill Splitter) 1 ea UNSCH PRN OTHER 01/05/17 12:45 (Cardizem Cd) 240 mg DAILY PO 01/06/17 09:00 01/09/17 09:53 (Lopressor) 75 mg Q12HR PO 01/07/17 09:00 01/09/17 21:43 (Coumadin) 1.25 mg DAILY@16 PO 01/09/17 16:00 01/09/17 15:05 (Lanoxin Inj) 0.25 mg DAILY IV PUSH 01/09/17 21:30 01/09/17 21:55 Vital Signs / I&O Vital Signs Date Time Temp Pulse Resp B/P (MAP) Pulse Ox O2 Delivery O2 Flow Rate FiO2 01/10/17 04:00 98.0 77 16 119/61 (80) 96 01/10/17 03:57 82 01/10/17 00:00 Room Air 01/10/17 00:00 97.9 73 16 108/55 (72) 96 01/09/17 23:59 70 01/09/17 20:01 71 01/09/17 20:00 Room Air 01/09/17 20:00 98.4 72 17 115/62 (79) 96 01/09/17 16:00 98.8 72 20 115/55 (75) 96 01/09/17 12:00 97.3 76 20 114/57 (76) 98 01/09/17 09:25 Room Air I/O 01/09/17 01/09/17 01/09/17 01/10/17 01/10/17 01/10/17 07:00 15:00 23:00 07:00 15:00 23:00 Intake Total 480 ml 600 ml 360 ml Output Total 150 ml 600 ml Balance 330 ml 600 ml -240 ml Intake Oral 480 ml 600 ml 360 ml Output Urine Total 150 ml 600 ml # Voids 2 # Bowel Movements 0 1 1 Physical Exam GENERAL: Well-developed well-nourished. In no acute distress. NECK: No carotid bruits. No JVD. CARDIOVASCULAR: Irregular rate and irregular rhythm. Mechanical murmur appreciated. RESPIRATORY: No accessory muscle use. Clear to auscultation. Breath sounds equal bilaterally. MUSCULOSKELETAL: No clubbing or cyanosis. Lower extremity lymphedema. NEUROLOGICAL: Awake and alert. Normal speech. Laboratory Laboratory Tests Test 01/09/17 08:20 01/09/17 13:40 01/10/17 06:50 White Blood Count 28.1 TH/MM3 26.9 TH/MM3 Red Blood Count 3.67 MIL/MM3 3.58 MIL/MM3 Hemoglobin 10.2 GM/DL 9.8 GM/DL Hematocrit 31.4 % 30.6 % Mean Corpuscular Volume 85.6 FL 85.7 FL Mean Corpuscular Hemoglobin 27.7 PG 27.3 PG Mean Corpuscular Hemoglobin Concent 32.4 % 31.9 % Red Cell Distribution Width 17.1 % 17.6 % Platelet Count 218 TH/MM3 207 TH/MM3 Mean Platelet Volume 8.3 FL 8.3 FL Neutrophils (%) (Auto) 94.9 % 94.1 % Lymphocytes (%) (Auto) 2.0 % 2.0 % Monocytes (%) (Auto) 3.1 % 3.8 % Eosinophils (%) (Auto) 0.0 % 0.1 % Basophils (%) (Auto) 0.0 % 0.0 % Neutrophils # (Auto) 26.7 TH/MM3 25.3 TH/MM3 Lymphocytes # (Auto) 0.6 TH/MM3 0.5 TH/MM3 Monocytes # (Auto) 0.9 TH/MM3 1.0 TH/MM3 Eosinophils # (Auto) 0.0 TH/MM3 0.0 TH/MM3 Basophils # (Auto) 0.0 TH/MM3 0.0 TH/MM3 CBC Comment AUTO DIFF AUTO DIFF Differential Total Cells Counted 100 Neutrophils % (Manual) 94 % Band Neutrophils % 1 % Lymphocytes % 2 % Monocytes % 3 % Neutrophils # (Manual) 26.7 TH/MM3 Differential Comment FINAL DIFF MANUAL Platelet Estimate NORMAL Platelet Morphology Comment NORMAL Ovalocytes 1+ Prothrombin Time 25.1 SEC 26.4 SEC Prothromb Time International Ratio 2.5 RATIO 2.6 RATIO Blood Smear Pathologist Review Blood Urea Nitrogen 21 MG/DL Creatinine 0.59 MG/DL Random Glucose 87 MG/DL Total Protein 6.1 GM/DL Albumin 2.1 GM/DL Calcium Level 8.2 MG/DL Magnesium Level 1.9 MG/DL Alkaline Phosphatase 86 U/L Aspartate Amino Transf (AST/SGOT) 18 U/L Alanine Aminotransferase (ALT/SGPT) 14 U/L Total Bilirubin 0.7 MG/DL Sodium Level 132 MEQ/L Potassium Level 4.0 MEQ/L Chloride Level 100 MEQ/L Carbon Dioxide Level 25.1 MEQ/L Anion Gap 7 MEQ/L Estimat Glomerular Filtration Rate 97 ML/MIN Digoxin Level 2.3 NG/ML Assessment and Plan Assessment and Plan 86-year-old female with past medical history of cardiomyopathy and AICD. She presented after AICD fired again and was found to have SVT. She was given IV Cardizem and conversion back to sinus rhythm. A. fib with RVR: Currently rate controlled on metoprolol 75 mg twice daily, diltiazem 240 mg, and digoxin. History of mechanical mitral valve replacement: INR therapeutic, continue Coumadin. Dallin Marquez Jan 10, 2017 08:20
[2017-01-10 08:30] LABS: BANDS 2 % (0-6); METAMYELOCYTES 1 % (0-1); NEUTROPHIL # MANUAL DIFF 25.6 TH/MM3 (1.8-7.7); POLYS (SEG NEUTROPHILS) 92 % (16-70); TOXIC GRANULATION 1+ (NORMAL); WBC DIFF SAMPLE 100
[2017-01-10 08:31] LABS: ACANTHOCYTES OCC (NORMAL); PLATELET ESTIMATE SMEAR NORMAL (NORMAL); PLATELET MORPHOLOGY NORMAL (NORMAL)
[2017-01-10 08:32] LABS: OVALOCYTES 1+ (NORMAL); SCAN/DIFF FINAL DIFF MANUAL
[2017-01-10] MEDS: METOPROLOL TARTRATE 25 MG TAB PO SCH ×2 (08:50→20:34)
[2017-01-10] MEDS: DILTIAZEM-CD 240 MG CAP ER PO SCH (08:50)
[2017-01-10] MEDS: FERROUS SULFATE 325 MG (65 MG ELEMENTAL IRON) TAB PO SCH (08:50)
[2017-01-10] MEDS: FOLIC ACID 1 MG TAB PO SCH (08:50)
[2017-01-10] MEDS: MULTIVITAMINS/MINERALS THERAPEUTIC TAB PO SCH (08:50)
[2017-01-10] MEDS: POTASSIUM CHLORIDE 8 MEQ CONTROLLED RELEASE TAB PO SCH ×2 (08:50→20:34)
[2017-01-10] MEDS: DIGOXIN 0.5 MG/2 ML VIAL IV PUSH SCH (08:51)
[2017-01-10] MEDS: FUROSEMIDE 20 MG TAB PO SCH ×2 (08:57→16:55)
--- NOTE | 2017-01-10 15:13 | HHI.PR ---
Subjective Remarks No new complaints HR is better controlled today Dig level is elevated today, Dig stopped and repeat labs in AM Objective Vitals Vital Signs Date Time Temp Pulse Resp B/P (MAP) Pulse Ox O2 Delivery O2 Flow Rate FiO2 01/10/17 12:00 97.8 73 18 113/60 (77) 97 01/10/17 08:00 100 01/10/17 08:00 97.6 90 18 115/64 (81) 96 01/10/17 08:00 Room Air 01/10/17 04:00 98.0 77 16 119/61 (80) 96 01/10/17 03:57 82 01/10/17 00:00 Room Air 01/10/17 00:00 97.9 73 16 108/55 (72) 96 01/09/17 23:59 70 01/09/17 20:01 71 01/09/17 20:00 Room Air 01/09/17 20:00 98.4 72 17 115/62 (79) 96 01/09/17 16:00 98.8 72 20 115/55 (75) 96 Result Diagram: 01/10/17 0650 01/10/17 0650 Other Results Laboratory Tests Test 01/09/17 08:10 01/09/17 08:20 01/09/17 13:40 01/10/17 06:50 Urine Color YELLOW Urine Turbidity CLEAR Urine pH 5.0 Urine Specific [place] 1.018 Urine Protein NEG mg/dL Urine Glucose (UA) NEG mg/dL Urine Ketones NEG mg/dL Urine Occult Blood NEG Urine Nitrite NEG Urine Bilirubin NEG Urine Urobilinogen LESS THAN 2.0 MG/DL Urine Leukocyte Esterase NEG Urine RBC LESS THAN 1 /hpf Urine WBC 1 /hpf Urine Squamous Epithelial Cells 1 /hpf Urine Hyaline Casts 4 /lpf Urine Mucus FEW /lpf Microscopic Urinalysis Comment CULT NOT INDICATED White Blood Count 28.1 TH/MM3 26.9 TH/MM3 Red Blood Count 3.67 MIL/MM3 3.58 MIL/MM3 Hemoglobin 10.2 GM/DL 9.8 GM/DL Hematocrit 31.4 % 30.6 % Mean Corpuscular Volume 85.6 FL 85.7 FL Mean Corpuscular Hemoglobin 27.7 PG 27.3 PG Mean Corpuscular Hemoglobin Concent 32.4 % 31.9 % Red Cell Distribution Width 17.1 % 17.6 % Platelet Count 218 TH/MM3 207 TH/MM3 Mean Platelet Volume 8.3 FL 8.3 FL Neutrophils (%) (Auto) 94.9 % 94.1 % Lymphocytes (%) (Auto) 2.0 % 2.0 % Monocytes (%) (Auto) 3.1 % 3.8 % Eosinophils (%) (Auto) 0.0 % 0.1 % Basophils (%) (Auto) 0.0 % 0.0 % Neutrophils # (Auto) 26.7 TH/MM3 25.3 TH/MM3 Lymphocytes # (Auto) 0.6 TH/MM3 0.5 TH/MM3 Monocytes # (Auto) 0.9 TH/MM3 1.0 TH/MM3 Eosinophils # (Auto) 0.0 TH/MM3 0.0 TH/MM3 Basophils # (Auto) 0.0 TH/MM3 0.0 TH/MM3 CBC Comment AUTO DIFF AUTO DIFF Differential Total Cells Counted 100 100 Neutrophils % (Manual) 94 % 92 % Band Neutrophils % 1 % 2 % Lymphocytes % 2 % Monocytes % 3 % 5 % Neutrophils # (Manual) 26.7 TH/MM3 25.6 TH/MM3 Differential Comment FINAL DIFF MANUAL FINAL DIFF MANUAL Platelet Estimate NORMAL NORMAL Platelet Morphology Comment NORMAL NORMAL Ovalocytes 1+ 1+ Prothrombin Time 25.1 SEC 26.4 SEC Prothromb Time International Ratio 2.5 RATIO 2.6 RATIO Blood Smear Pathologist Review Metamyelocytes 1 % Toxic Granulation 1+ Acanthocytes OCC Blood Urea Nitrogen 21 MG/DL Creatinine 0.59 MG/DL Random Glucose 87 MG/DL Total Protein 6.1 GM/DL Albumin 2.1 GM/DL Calcium Level 8.2 MG/DL Magnesium Level 1.9 MG/DL Alkaline Phosphatase 86 U/L Aspartate Amino Transf (AST/SGOT) 18 U/L Alanine Aminotransferase (ALT/SGPT) 14 U/L Total Bilirubin 0.7 MG/DL Sodium Level 132 MEQ/L Potassium Level 4.0 MEQ/L Chloride Level 100 MEQ/L Carbon Dioxide Level 25.1 MEQ/L Anion Gap 7 MEQ/L Estimat Glomerular Filtration Rate 97 ML/MIN Digoxin Level 2.3 NG/ML Test 01/10/17 12:36 Digoxin Level 3.2 NG/ML Imaging Last Impressions Chest X-Ray 01/05/17 0780 Signed Impressions: Service Date/Time: Thursday, January 05, 2017 07:50 - CONCLUSION: Cardiomegaly. No acute infiltrate or effusion. Carter Rausch Jr., MD Objective Remarks General: NAD, AAox3 Chest: CTA Cardiac: Irregular Abd: +BS, soft ND/NT Ext: Minimal edema A/P Problem List: (1) AICD discharge ICD Codes: Z45.02 - Encounter for adjustment and management of automatic implantable cardiac defibrillator Status: Acute Plan: Pt is an 86 y/o female with atrial fibrillation on chronic anticoagulation with Coumadin, Cardiomyopathy with AICD, CHF with EF 25-30%. She was recently admitted from 01/01/17 to 01/04/17 for anemia, defibrillator firing and A. fib RVR. During that admission was was given IV Cardizem but its use was limited due to hypotension and was weaned off. She was placed on Metoprolol 50mg po BID and Digoxin. Pt was transfused with 1 unit of PRBCs and IV iron during that admission. She was also found to have a UTI with urine culture growing Klebsiella and was discharged on Cipro. Pt was discharged home yesterday and reported that this morning her AICD fired twice and EMS was called. When EMS initially arrived they noticed the rate but it reportedly her HR in the 160s. Her AICD fired again while walking to the ambulance They transported her to the ED but no medication was given. However soon after arriving to the emergency room heart rate went up to the 180s to 190s again. Cardiology was consulted and pt was administered IV Cardizem and given Cardizem 90mg po x one dose. Pt still in A. fib with HR in the 80's at the time of admission. Atrial Fibrillation with RVR Defibrillator firing - Pt was admitted with tachycardia and reported firing of her defibrillator - Patient was shocked by her defibrillator multiple times prior to her last admission and at that time the device was interrogated and revealed 9 VF zone with 9 shocks, 3 in VT- 2 zone with 6 shocks and 48 classed SVT - Pt was discharged on Metoprolol 50mg Q12H and Digoxin 0.125mg po daily. - Pt readmitted with A. fib RVR and patient given Cardizem 25mg IV x one dose and Cardizem 90mg po x one dose int he ED with adequate rate control. - Dig Level at admission was subtherapeutic at 0.6 - Pt was continued on oral Cardizem 60mg Q6H following admission and was convert to Cardizem CD 240mg po daily on 01/06 - Pt was seen by Cardiology and was resumed on her Metoprolol 50mg po BID in addition to the Cardizem on 01/06 - Pt has continued to have episodes of A. fib RVR, Metoprolol was increased to 75mg po BID on 01/07/17 by Cardiology - INR increased to 3.2 on 01/07 and repeat on 01/08 was 3.5. INR decreased to 2.5 on 01/09, Coumadin resumed at 1.25mg daily on 01/09 - Pts HR on telemetry on 01/09 was not well controlled. For several hours her HR was in the 120-130's. - Her BP has been low normal so not a lot of room to increase on the Cardizem or Metoprolol. - Digoxin was added back on 01/09. Dig level this morning was slightly high 2.3 but repeat at in the afternoon was 3.2. Dig was stopped this morning. 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 Niño outpatient - During recent admission pt received 1 unit PRBCs and Iron infusion - Per outpatient records, outpatient iron studies have shown a very low iron saturation of 10%. She has had extensive work-up including thyroid function testing, B12 and folate testing which was all normal. Her LDH was slightly elevated , haptoglobin was low and direct Iza test was negative. 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 Previously reported neg stool guaiac by PCP - Pt follows with Dr Niño - Pt has been continued on FeSO4 325mg po daily - Monitor labs Hypothyroidism - Continue home levothyroxine - Last TSH check 12/20/16 2.040 Hyperlipidemia - continue patient's home statin regiment HTN - Hold ARB for now. UTI with Klebsiella Leukocytosis - WBC 18.5 at admission - Pt previously noted to have UTI with culture growing Klebsiella. - Pt was discharged on Cipro, this was continued, to be completed on . - Repeat labs on 01/08 with WBC count 27.2 and on 01/09 was 28, with predominantly neutrophils on the diff - Labs on 01/10 with WBC count 26.9 - Repeat UA was negative. - Cipro completed on 01/09 - CXR (01/08) --> Post surgical features with compensated cardiomegaly. NO acute abnormality or significant interval change. - Pt had low grade temp of 99.8 on 01/08 but otherwise has been afebrile. - Blood cultures (01/09) with no growth x 1 day - Peripheral blood smear is pending. - Pts brother reportedly had leukemia (2) Atrial fibrillation with RVR ICD Codes: I48.91 - Unspecified atrial fibrillation Status: Acute (3) Leukocytosis ICD Codes: D72.829 - Elevated white blood cell count, unspecified Status: Acute (4) UTI (urinary tract infection) ICD Codes: N39.0 - Urinary tract infection, site not specified (5) Cardiomyopathy ICD Codes: I42.9 - Cardiomyopathy, unspecified Status: Chronic Assessment and Plan Patient examined. Assessment and plan formulated with eBcky Patton PA-C. I agree with the above. Problem Qualifiers (1) Leukocytosis: Qualified Codes: D72.829 - Elevated white blood cell count, unspecified Becky Patton Jan 10, 2017 15:13 Rey Daniels DO Jan 12, 2017 23:29
[2017-01-10] MEDS: WARFARIN SOD 2.5 MG TAB PO SCH (16:55)
[2017-01-10] MEDS: ATORVASTATIN 10 MG TAB PO SCH (20:32)
[2017-01-10] MEDS: GABAPENTIN 300 MG CAP PO SCH (20:33)
[2017-01-11] VITALS (8 sets, daily range): BP systolic 106–119; BP diastolic 54–70; PULSE 70–80; RESP 16–21; TEMP 97.4–98.8; O2SAT 94–97
[2017-01-11] MEDS: LEVOTHYROXINE SODIUM 75 MCG TAB PO SCH (05:27)
[2017-01-11 07:35] LABS: AUTOMATED NEUTROPHIL # 23.9 TH/MM3 (1.8-7.7); BASOPHIL % 0.1 % (0.0-2.0); HEMATOCRIT 31.3 % (35.0-46.0); HEMO FLAGS DIFF FINAL; LYMPH % 1.8 % (9.0-44.0); LYMPHOCYTE # 0.5 TH/MM3 (1.0-4.8); MEAN CELL VOLUME 85.9 FL (80.0-100.0); MEAN CORPUSCULAR HEMOGLOBIN 27.7 PG (27.0-34.0); MEAN CORPUSCULAR HGB CONC 32.3 % (32.0-36.0); MONO % 3.9 % (0.0-8.0); NEUT % 94.2 % (16.0-70.0); PLATELET COUNT 205 TH/MM3 (150-450); RED BLOOD COUNT 3.65 MIL/MM3 (4.00-5.30); RED CELL DISTRIBUTION WIDTH 17.3 % (11.6-17.2); WHITE BLOOD COUNT 25.4 TH/MM3 (4.0-11.0)
--- NOTE | 2017-01-11 07:36 | PD.CARD.PN ---
Subjective Subjective Remarks Telemetry with A. fib and some PVCs but controlled rate overnight. Has been ambulating. No palpitations, chest pain, or shortness of breath. Planning to go to rehabilitation. Objective Medications Current Medications Medications (Trade) Dose Ordered Sig/Denis Route Start Time Stop Time Status Last Admin (NS Flush) 2 ml UNSCH PRN IVF 01/05/17 07:30 01/09/17 21:56 (Lipitor) 10 mg HS PO 01/05/17 21:00 01/10/17 20:32 (Ferrous Sulfate) 325 mg DAILY PO 01/06/17 09:00 01/10/17 08:50 (Folate) 1 mg DAILY PO 01/06/17 09:00 01/10/17 08:50 (Lasix) 20 mg BID@0900,1800 PO 01/05/17 18:00 01/10/17 16:55 (Neurontin) 300 mg HS PO 01/05/17 21:00 01/10/17 20:33 (Synthroid) 75 mcg DAILY@0600 PO 01/06/17 06:00 01/11/17 05:27 (KCl) 8 meq BID PO 01/05/17 21:00 01/10/17 20:34 (Theragran M Tab) 1 tab DAILY PO 01/06/17 09:00 01/10/17 08:50 (Pill Splitter) 1 ea UNSCH PRN OTHER 01/05/17 12:45 (Cardizem Cd) 240 mg DAILY PO 01/06/17 09:00 01/10/17 08:50 (Lopressor) 75 mg Q12HR PO 01/07/17 09:00 01/10/17 20:34 (Coumadin) 1.25 mg DAILY@16 PO 01/09/17 16:00 01/10/17 16:55 Vital Signs / I&O Vital Signs Date Time Temp Pulse Resp B/P (MAP) Pulse Ox O2 Delivery O2 Flow Rate FiO2 01/11/17 04:20 80 01/11/17 04:00 97.4 75 18 115/70 (85) 94 01/11/17 04:00 Room Air 01/11/17 00:00 Room Air 01/11/17 00:00 71 01/11/17 00:00 98.0 70 21 108/59 (75) 96 01/10/17 20:35 Room Air 01/10/17 20:13 73 01/10/17 20:00 98.4 92 19 115/72 (86) 96 01/10/17 16:00 98.4 69 18 107/56 (73) 97 01/10/17 12:00 97.8 73 18 113/60 (77) 97 01/10/17 08:00 100 01/10/17 08:00 97.6 90 18 115/64 (81) 96 01/10/17 08:00 Room Air I/O 01/10/17 01/10/17 01/10/17 01/11/17 01/11/17 01/11/17 07:00 15:00 23:00 07:00 15:00 23:00 Intake Total 360 ml 480 ml 240 ml Output Total 600 ml 500 ml Balance -240 ml 480 ml -260 ml Intake Oral 360 ml 480 ml 240 ml Output Urine Total 600 ml 500 ml # Voids 2 # Bowel Movements 1 1 0 Physical Exam GENERAL: Well-developed well-nourished. In no acute distress. NECK: No carotid bruits. No JVD. CARDIOVASCULAR: Irregular rate and irregular rhythm. Mechanical murmur appreciated. RESPIRATORY: No accessory muscle use. Clear to auscultation. Breath sounds equal bilaterally. MUSCULOSKELETAL: No clubbing or cyanosis. Lower extremity lymphedema. NEUROLOGICAL: Awake and alert. Normal speech. Laboratory Laboratory Tests Test 01/10/17 12:36 01/11/17 07:20 Digoxin Level 3.2 NG/ML Assessment and Plan Assessment and Plan 86-year-old female with past medical history of cardiomyopathy and AICD. She presented after AICD fired again and was found to have SVT. She was given IV Cardizem and conversion back to sinus rhythm. A. fib with RVR: Currently rate controlled on metoprolol 75 mg twice daily, diltiazem 240 mg, and digoxin. Digoxin on hold with super therapeutic level, repeat level today pending, resume when indicated. History of mechanical mitral valve replacement: INR therapeutic, continue Coumadin. Ambulatory with no CV symptoms, stable and okay from cardiology perspective for discharge Dallin Marquez Jan 11, 2017 07:36
[2017-01-11 07:46] LABS: INTERNATIONAL NORMALIZED RATIO 2.9 RATIO; PROTHROMBIN TIME - PATIENT 28.8 SEC (9.8-11.6)
[2017-01-11] MEDS: MULTIVITAMINS/MINERALS THERAPEUTIC TAB PO SCH (08:07)
[2017-01-11] MEDS: FOLIC ACID 1 MG TAB PO SCH (08:07)
[2017-01-11] MEDS: DILTIAZEM-CD 240 MG CAP ER PO SCH (08:07)
[2017-01-11] MEDS: POTASSIUM CHLORIDE 8 MEQ CONTROLLED RELEASE TAB PO SCH ×2 (08:07→20:24)
[2017-01-11] MEDS: FERROUS SULFATE 325 MG (65 MG ELEMENTAL IRON) TAB PO SCH (08:07)
[2017-01-11] MEDS: FUROSEMIDE 20 MG TAB PO SCH ×2 (08:07→17:07)
[2017-01-11] MEDS: METOPROLOL TARTRATE 25 MG TAB PO SCH ×2 (08:07→20:23)
--- NOTE | 2017-01-11 13:06 | HHI.PR ---
Subjective Remarks No new complaints today HR has been rate controlled on telemetry Pt denies any SOB, chest pain, palpitations, abd pain, nausea, diarrhea dysuria or urinary frequency. She has been afebrile Objective Vitals Vital Signs Date Time Temp Pulse Resp B/P (MAP) Pulse Ox O2 Delivery O2 Flow Rate FiO2 01/11/17 08:00 98.4 78 18 118/54 (75) 96 01/11/17 04:20 80 01/11/17 04:00 97.4 75 18 115/70 (85) 94 01/11/17 04:00 Room Air 01/11/17 00:00 Room Air 01/11/17 00:00 71 01/11/17 00:00 98.0 70 21 108/59 (75) 96 01/10/17 20:35 Room Air 01/10/17 20:13 73 01/10/17 20:00 98.4 92 19 115/72 (86) 96 01/10/17 16:00 98.4 69 18 107/56 (73) 97 Result Diagram: 01/11/17 0720 01/10/17 0650 Other Results Laboratory Tests Test 01/09/17 13:40 01/10/17 06:50 01/10/17 12:36 01/11/17 07:20 Blood Smear Pathologist Review White Blood Count 26.9 TH/MM3 25.4 TH/MM3 Red Blood Count 3.58 MIL/MM3 3.65 MIL/MM3 Hemoglobin 9.8 GM/DL 10.1 GM/DL Hematocrit 30.6 % 31.3 % Mean Corpuscular Volume 85.7 FL 85.9 FL Mean Corpuscular Hemoglobin 27.3 PG 27.7 PG Mean Corpuscular Hemoglobin Concent 31.9 % 32.3 % Red Cell Distribution Width 17.6 % 17.3 % Platelet Count 207 TH/MM3 205 TH/MM3 Mean Platelet Volume 8.3 FL 8.6 FL Neutrophils (%) (Auto) 94.1 % 94.2 % Lymphocytes (%) (Auto) 2.0 % 1.8 % Monocytes (%) (Auto) 3.8 % 3.9 % Eosinophils (%) (Auto) 0.1 % 0.0 % Basophils (%) (Auto) 0.0 % 0.1 % Neutrophils # (Auto) 25.3 TH/MM3 23.9 TH/MM3 Lymphocytes # (Auto) 0.5 TH/MM3 0.5 TH/MM3 Monocytes # (Auto) 1.0 TH/MM3 1.0 TH/MM3 Eosinophils # (Auto) 0.0 TH/MM3 0.0 TH/MM3 Basophils # (Auto) 0.0 TH/MM3 0.0 TH/MM3 CBC Comment AUTO DIFF DIFF FINAL Differential Total Cells Counted 100 Neutrophils % (Manual) 92 % Band Neutrophils % 2 % Monocytes % 5 % Neutrophils # (Manual) 25.6 TH/MM3 Metamyelocytes 1 % Differential Comment FINAL DIFF MANUAL Toxic Granulation 1+ Platelet Estimate NORMAL Platelet Morphology Comment NORMAL Ovalocytes 1+ Acanthocytes OCC Prothrombin Time 26.4 SEC 28.8 SEC Prothromb Time International Ratio 2.6 RATIO 2.9 RATIO Blood Urea Nitrogen 21 MG/DL Creatinine 0.59 MG/DL Random Glucose 87 MG/DL Total Protein 6.1 GM/DL Albumin 2.1 GM/DL Calcium Level 8.2 MG/DL Magnesium Level 1.9 MG/DL Alkaline Phosphatase 86 U/L Aspartate Amino Transf (AST/SGOT) 18 U/L Alanine Aminotransferase (ALT/SGPT) 14 U/L Total Bilirubin 0.7 MG/DL Sodium Level 132 MEQ/L Potassium Level 4.0 MEQ/L Chloride Level 100 MEQ/L Carbon Dioxide Level 25.1 MEQ/L Anion Gap 7 MEQ/L Estimat Glomerular Filtration Rate 97 ML/MIN Digoxin Level 2.3 NG/ML 3.2 NG/ML 2.2 NG/ML Imaging Last Impressions Chest X-Ray 01/05/17 0724 Signed Impressions: Service Date/Time: Thursday, January 05, 2017 07:50 - CONCLUSION: Cardiomegaly. No acute infiltrate or effusion. Carter Rausch Jr., MD Objective Remarks General: NAD, AAox3 Chest: CTA Cardiac: Irregular Abd: +BS, soft ND/NT Ext: Minimal edema, L>R LE A/P Problem List: (1) AICD discharge ICD Codes: Z45.02 - Encounter for adjustment and management of automatic implantable cardiac defibrillator Status: Acute Plan: Pt is an 86 y/o female with atrial fibrillation on chronic anticoagulation with Coumadin, Cardiomyopathy with AICD, CHF with EF 25-30%. She was recently admitted from 01/01/17 to 01/04/17 for anemia, defibrillator firing and A. fib RVR. During that admission was was given IV Cardizem but its use was limited due to hypotension and was weaned off. She was placed on Metoprolol 50mg po BID and Digoxin. Pt was transfused with 1 unit of PRBCs and IV iron during that admission. She was also found to have a UTI with urine culture growing Klebsiella and was discharged on Cipro. Pt was discharged home yesterday and reported that this morning her AICD fired twice and EMS was called. When EMS initially arrived they noticed the rate but it reportedly her HR in the 160s. Her AICD fired again while walking to the ambulance They transported her to the ED but no medication was given. However soon after arriving to the emergency room heart rate went up to the 180s to 190s again. Cardiology was consulted and pt was administered IV Cardizem and given Cardizem 90mg po x one dose. Pt still in A. fib with HR in the 80's at the time of admission. Atrial Fibrillation with RVR Defibrillator firing - Pt was admitted with tachycardia and reported firing of her defibrillator - Patient was shocked by her defibrillator multiple times prior to her last admission and at that time the device was interrogated and revealed 9 VF zone with 9 shocks, 3 in VT- 2 zone with 6 shocks and 48 classed SVT - Pt was discharged on Metoprolol 50mg Q12H and Digoxin 0.125mg po daily. - Pt readmitted with A. fib RVR and patient given Cardizem 25mg IV x one dose and Cardizem 90mg po x one dose int he ED with adequate rate control. - Dig Level at admission was subtherapeutic at 0.6 - Pt was continued on oral Cardizem 60mg Q6H following admission and was convert to Cardizem CD 240mg po daily on 01/06 - Pt was seen by Cardiology and was resumed on her Metoprolol 50mg po BID in addition to the Cardizem on 01/06 - Pt has continued to have episodes of A. fib RVR, Metoprolol was increased to 75mg po BID on 01/07/17 by Cardiology - INR increased to 3.2 on 01/07 and repeat on 01/08 was 3.5. INR decreased to 2.5 on 01/09, Coumadin resumed at 1.25mg daily on 01/09 - Pts HR on telemetry on 01/09 was not well controlled. For several hours her HR was in the 120-130's. - Her BP has been low normal so not a lot of room to increase on the Cardizem or Metoprolol. - Digoxin was added back on 01/09. Dig level this morning was slightly high 2.3 but repeat at in the afternoon was 3.2. Dig was stopped this morning. 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 Niño outpatient - During recent admission pt received 1 unit PRBCs and Iron infusion - Per outpatient records, outpatient iron studies have shown a very low iron saturation of 10%. She has had extensive work-up including thyroid function testing, B12 and folate testing which was all normal. Her LDH was slightly elevated , haptoglobin was low and direct Iza test was negative. 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 Previously reported neg stool guaiac by PCP - Pt follows with Dr Niño - Pt has been continued on FeSO4 325mg po daily - Monitor labs Hypothyroidism - Continue home levothyroxine - Last TSH check 12/20/16 2.040 Hyperlipidemia - continue patient's home statin regiment HTN - Hold ARB for now. UTI with Klebsiella Leukocytosis - WBC 18.5 at admission - Pt previously noted to have UTI with culture growing Klebsiella. - Pt was discharged on Cipro, this was completed on 01/09 - Repeat labs on 01/08 with WBC count 27.2 and on 01/09 was 28, with predominantly neutrophils on the diff - Labs on 01/11 with WBC count 25.4 - Repeat UA was negative. - Cipro completed on 01/09 - CXR (01/08) --> Post surgical features with compensated cardiomegaly. NO acute abnormality or significant interval change. - Pt had low grade temp of 99.8 on 01/08 but otherwise has been afebrile. - Blood cultures (01/09) with no growth x 2 days - Peripheral blood smear (01/10) --> Leukocytosis with neutrophilia, showing a left shift and toxic granulation suggesting a reactive or infectious process - Pts brother reportedly had leukemia (2) Atrial fibrillation with RVR ICD Codes: I48.91 - Unspecified atrial fibrillation Status: Acute (3) Leukocytosis ICD Codes: D72.829 - Elevated white blood cell count, unspecified Status: Acute (4) UTI (urinary tract infection) ICD Codes: N39.0 - Urinary tract infection, site not specified (5) Cardiomyopathy ICD Codes: I42.9 - Cardiomyopathy, unspecified Status: Chronic Assessment and Plan Patient examined. Assessment and plan formulated with Becky Patton PA-C. I agree with the above. Problem Qualifiers (1) Leukocytosis: Qualified Codes: D72.829 - Elevated white blood cell count, unspecified Becky Patton Jan 11, 2017 13:06 Rey Daniels DO Jan 12, 2017 23:29
--- NOTE | 2017-01-11 17:41 | EKG ---
Date Performed: 01/10/2017 Time Performed: 15:52:56 PTAGE: 86 years EKG: Ventricular pacing. Pacemaker rhythm - no further analysis Underlying rhythm appears to be atrial fibrillation. When compared to previous tracing, the rhythm is now paced, but The atrial fibri llation was previously noted Abnormal ECG PREVIOUS TRACING : 01/05/2017 07.29 DOCTOR: Cristela Gutierrez Interpretating Date/Time 01/11/2017 17:39:52
[2017-01-11] MEDS: ATORVASTATIN 10 MG TAB PO SCH (20:24)
[2017-01-11] MEDS: GABAPENTIN 300 MG CAP PO SCH (20:24)
--- NOTE | 2017-01-11 22:33 | EKG ---
Date Performed: 01/11/2017 Time Performed: 05:32:40 PTAGE: 86 years EKG: Atrial fibrillation Demand pacing Possible LVH with secondary repolarization abnormality Ex tensive ST-T changes Abnormal ECG Compared to the PREVIOUS TRACING V pacing less frequent DOCTOR: Saud Ascencio Interpretating Date/Time 01/11/2017 22:32:51
[2017-01-12] VITALS (9 sets, daily range): BP systolic 112–128; BP diastolic 56–64; PULSE 70–90; RESP 18–21; TEMP 97.4–98.5; O2SAT 95–98
[2017-01-12] MEDS: LEVOTHYROXINE SODIUM 75 MCG TAB PO SCH (05:00)
[2017-01-12] MEDS ORDERED: METO25TA3 PO (07:30)
[2017-01-12] MEDS ORDERED: DILT240C44 PO (07:30)
--- NOTE | 2017-01-12 07:33 | HHI.DCPOC ---
Discharge Care Plan Diagnosis: (1) Leukocytosis (2) Atrial fibrillation with RVR (3) AICD discharge (4) Digoxin toxicity (5) Cardiomyopathy (6) Mechanical heart valve present (7) UTI (urinary tract infection) Goals to Promote Your Health * To prevent worsening of your condition and complications * To maintain your health at the optimal level Directions to Meet Your Goals Take your medications as prescribed Follow your dietary instruction Follow activity as directed Keep your appointments as scheduled Take your immunizations and boosters as scheduled If your symptoms worsen call your PCP, if no PCP go to Urgent Care Center or Emergency Room Smoking is Dangerous to Your Health. Avoid second hand smoke Call the 24-hour hour crisis hotline for domestic abuse at Claudia Damon Jan 12, 2017 07:33 Rey Daniels DO Jan 12, 2017 23:32
--- NOTE | 2017-01-12 07:35 | HHI.DS ---
Discharge Summary Admission Date Jan 07, 2017 at 08:24 Discharge Date: Jan 12, 2017 Admitting Diagnosis A. fib, RVR, AICD fired (1) AICD discharge Diagnosis: Principal ICD Codes: Z45.02 - Encounter for adjustment and management of automatic implantable cardiac defibrillator Status: Acute (2) Atrial fibrillation with RVR Diagnosis: Principal ICD Codes: I48.91 - Unspecified atrial fibrillation Status: Acute (3) Leukocytosis Diagnosis: Principal ICD Codes: D72.829 - Elevated white blood cell count, unspecified Status: Acute (4) UTI (urinary tract infection) Diagnosis: Principal ICD Codes: N39.0 - Urinary tract infection, site not specified (5) Cardiomyopathy Diagnosis: Secondary ICD Codes: I42.9 - Cardiomyopathy, unspecified Status: Chronic Consultants Dr. Foster Procedures none Brief History Pt is an 86 y/o female with atrial fibrillation on chronic anticoagulation with Coumadin, Cardiomyopathy with AICD, CHF with EF 25-30%. She was recently admitted from 01/01/17 to 01/04/17 for anemia, defibrillator firing and A. fib RVR. During that admission was was given IV Cardizem but its use was limited due to hypotension and was weaned off. She was placed on Metoprolol 50mg po BID and Digoxin. Pt was transfused with 1 unit of PRBCs and IV iron during that admission. She was also found to have a UTI with urine culture growing Klebsiella and was discharged on Cipro. Pt was discharged home yesterday and reported that this morning she was feeling well and gave herself a sponge bath. Then while sitting down having a cup of coffee her AICD fired twice. EMS was called. When EMS initially arrived they noticed the rate but it reportedly her HR was in the 160s per the ED notes. Pt reports that she had one more episode of the AICD firing prior to getting in the ambulance. They transported her to the ED but no medication was given. However soon after arriving to the emergency room heart rate went up to the 180s to 190s again. Cardiology was consulted and pt was administered IV Cardizem and given Cardizem 90mg po x one dose. Pt still in A. fib with HR in the 80's at the time of admission. CBC/BMP: 01/11/17 0720 01/10/17 0650 Significant Findings Laboratory Tests Test 01/09/17 08:10 01/09/17 08:20 01/09/17 13:40 01/10/17 06:50 Urine Mucus FEW /lpf (OCC) White Blood Count 28.1 TH/MM3 (4.0-11.0) 26.9 TH/MM3 (4.0-11.0) Red Blood Count 3.67 MIL/MM3 (4.00-5.30) 3.58 MIL/MM3 (4.00-5.30) Hemoglobin 10.2 GM/DL (11.6-15.3) 9.8 GM/DL (11.6-15.3) Hematocrit 31.4 % (35.0-46.0) 30.6 % (35.0-46.0) Neutrophils (%) (Auto) 94.9 % (16.0-70.0) 94.1 % (16.0-70.0) Lymphocytes (%) (Auto) 2.0 % (9.0-44.0) 2.0 % (9.0-44.0) Neutrophils # (Auto) 26.7 TH/MM3 (1.8-7.7) 25.3 TH/MM3 (1.8-7.7) Lymphocytes # (Auto) 0.6 TH/MM3 (1.0-4.8) 0.5 TH/MM3 (1.0-4.8) Neutrophils % (Manual) 94 % (16-70) 92 % (16-70) Lymphocytes % 2 % (9-44) Neutrophils # (Manual) 26.7 TH/MM3 (1.8-7.7) 25.6 TH/MM3 (1.8-7.7) Ovalocytes 1+ (NORMAL) 1+ (NORMAL) Prothrombin Time 25.1 SEC (9.8-11.6) 26.4 SEC (9.8-11.6) Mean Corpuscular Hemoglobin Concent 31.9 % (32.0-36.0) Red Cell Distribution Width 17.6 % (11.6-17.2) Monocytes # (Auto) 1.0 TH/MM3 (0-0.9) Toxic Granulation 1+ (NORMAL) Acanthocytes OCC (NORMAL) Blood Urea Nitrogen 21 MG/DL (7-18) Total Protein 6.1 GM/DL (6.4-8.2) Albumin 2.1 GM/DL (3.4-5.0) Calcium Level 8.2 MG/DL (8.5-10.1) Sodium Level 132 MEQ/L (136-145) Digoxin Level 2.3 NG/ML (0.8-2.0) Test 01/10/17 12:36 01/11/17 07:20 Digoxin Level 3.2 NG/ML (0.8-2.0) 2.2 NG/ML (0.8-2.0) White Blood Count 25.4 TH/MM3 (4.0-11.0) Red Blood Count 3.65 MIL/MM3 (4.00-5.30) Hemoglobin 10.1 GM/DL (11.6-15.3) Hematocrit 31.3 % (35.0-46.0) Red Cell Distribution Width 17.3 % (11.6-17.2) Neutrophils (%) (Auto) 94.2 % (16.0-70.0) Lymphocytes (%) (Auto) 1.8 % (9.0-44.0) Neutrophils # (Auto) 23.9 TH/MM3 (1.8-7.7) Lymphocytes # (Auto) 0.5 TH/MM3 (1.0-4.8) Monocytes # (Auto) 1.0 TH/MM3 (0-0.9) Prothrombin Time 28.8 SEC (9.8-11.6) Imaging Last Impressions Lower Extremity Ultrasound 01/08/17 0000 Signed Impressions: Service Date/Time: Sunday, January 08, 2017 17:13 - CONCLUSION: No venous thrombosis of the left lower extremity. Willis Rob MD Chest X-Ray 01/08/17 0000 Signed Impressions: Service Date/Time: Sunday, January 08, 2017 14:26 - CONCLUSION: 1. Post surgical features with compensated cardiomegaly. 2. No acute abnormality or significant interval change. Isiah Angelo MD PE at Discharge General: NAD, AAox3 Chest: CTA Cardiac: Irregular Abd: +BS, soft ND/NT Ext: Minimal edema, L>R LE Hospital Course Pt is an 86 y/o female with atrial fibrillation on chronic anticoagulation with Coumadin, Cardiomyopathy with AICD, CHF with EF 25-30%. She was recently admitted from 01/01/17 to 01/04/17 for anemia, defibrillator firing and A. fib RVR. During that admission was was given IV Cardizem but its use was limited due to hypotension and was weaned off. She was placed on Metoprolol 50mg po BID and Digoxin. Pt was transfused with 1 unit of PRBCs and IV iron during that admission. She was also found to have a UTI with urine culture growing Klebsiella and was discharged on Cipro. Pt was discharged home yesterday and reported that this morning her AICD fired twice and EMS was called. When EMS initially arrived they noticed the rate but it reportedly her HR in the 160s. Her AICD fired again while walking to the ambulance They transported her to the ED but no medication was given. However soon after arriving to the emergency room heart rate went up to the 180s to 190s again. Cardiology was consulted and pt was administered IV Cardizem and given Cardizem 90mg po x one dose. Pt still in A. fib with HR in the 80's at the time of admission. Atrial Fibrillation with RVR Defibrillator firing - Pt was admitted with tachycardia and reported firing of her defibrillator - Patient was shocked by her defibrillator multiple times prior to her last admission and at that time the device was interrogated and revealed 9 VF zone with 9 shocks, 3 in VT- 2 zone with 6 shocks and 48 classed SVT - Pt was discharged on Metoprolol 50mg Q12H and Digoxin 0.125mg po daily. - Pt readmitted with A. fib RVR and patient given Cardizem 25mg IV x one dose and Cardizem 90mg po x one dose int he ED with adequate rate control. - Dig Level at admission was subtherapeutic at 0.6 - Pt was continued on oral Cardizem 60mg Q6H following admission and was convert to Cardizem CD 240mg po daily on 01/06 - Pt was seen by Cardiology and was resumed on her Metoprolol 50mg po BID in addition to the Cardizem on 01/06 - Pt has continued to have episodes of A. fib RVR, Metoprolol was increased to 75mg po BID on 01/07/17 by Cardiology - INR increased to 3.2 on 01/07 and repeat on 01/08 was 3.5. INR decreased to 2.5 on 01/09, Coumadin resumed at 1.25mg daily on 01/09 - Pts HR on telemetry on 01/09 was not well controlled. For several hours her HR was in the 120-130's. - Her BP has been low normal so not a lot of room to increase on the Cardizem or Metoprolol. - Digoxin was added back on 01/09. Dig level 01/10 was slightly high 2.3 but repeat was 3.2. 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 Niño outpatient - During recent admission pt received 1 unit PRBCs and Iron infusion - Per outpatient records, outpatient iron studies have shown a very low iron saturation of 10%. She has had extensive work-up including thyroid function testing, B12 and folate testing which was all normal. Her LDH was slightly elevated , haptoglobin was low and direct Iza test was negative. 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 Previously reported neg stool guaiac by PCP - Pt follows with Dr Niño - Pt has been continued on FeSO4 325mg po daily - Monitor labs Hypothyroidism - Continue home levothyroxine - Last TSH check 12/20/16 2.040 Hyperlipidemia - continue patient's home statin regiment HTN - Hold ARB for now. UTI with Klebsiella Leukocytosis - WBC 18.5 at admission - Pt previously noted to have UTI with culture growing Klebsiella. - Pt was discharged on Cipro, this was completed on 01/09 - Repeat labs on 01/08 with WBC count 27.2 and on 01/09 was 28, with predominantly neutrophils on the diff - Labs on 01/11 with WBC count 25.4 - Repeat UA was negative. - Cipro completed on 01/09 - CXR (01/08) --> Post surgical features with compensated cardiomegaly. NO acute abnormality or significant interval change. - Pt had low grade temp of 99.8 on 01/08 but otherwise has been afebrile. - Blood cultures (01/09) with no growth x 2 days - Peripheral blood smear (01/10) --> Leukocytosis with neutrophilia, showing a left shift and toxic granulation suggesting a reactive or infectious process - Pts brother reportedly had leukemia Pt Condition on Discharge: Stable Discharge Disposition: Discharge to SNF Discharge Instructions DIET: Follow Instructions for: Heart Healthy Diet, Coumadin (Warfarin) Diet Activities you can perform: Regular-No Restrictions Follow up Referrals: Cardiology - [address] Foster PCP Follow-up - [address] Bowen New Orders: DIGOXIN - 2-3 Days PT/INR - Daily New Medications: Diltiazem CD 24 HR (Diltiazem CD 24 HR) 240 Mg Caper 240 MG PO DAILY for heart rate, #30 CAP 0 Refills Metoprolol Tartrate (Metoprolol Tartrate) 25 Mg Tab 75 MG PO Q12HR for heart rate/blood pressure, #60 TAB 0 Refills Continued Medications: Atorvastatin (Atorvastatin) 10 Mg Tab 10 MG PO HS for Cholesterol Management, #30 TAB 0 Refills Coenzyme Q10 (Ubidecarenone) (Coq-10) 50 Mg Cap 200 MG PO DAILY Digoxin (Digoxin) 0.125 Mg Tab 0.125 MG PO DAILY for afib, #30 TAB 3 Refills Ferrous Sulfate (Ferrous Sulfate) 325 Mg (65 Mg Iron) Tablet 325 MG PO DAILY for Nutritional Supplement, #30 TAB 0 Refills Folic Acid (Folic Acid) 0.4 Mg Tab 1 MG PO DAILY for Nutritional Supplement, TAB 0 Refills Furosemide (Furosemide) 20 Mg Tab 20 MG PO BID, #60 TAB 0 Refills Gabapentin (Gabapentin) 300 Mg Cap 300 MG PO HS, #30 CAP 0 Refills Levothyroxine (Levothyroxine) 75 Mcg Tab 75 MCG PO DAILY for Thyroid, #30 TAB 0 Refills Multiple Vitamins W/ Minerals (Ocuvite Adult 50+) 1 Cap 1 CAP PO DAILY for Nutritional Supplement, CAP 0 Refills Multivit with Iron,Minerals (Centravites 50 Plus) 1 Each Tablet 1 TAB PO DAILY Potassium Chloride ER (K-Tab) 8 Meq Tab 8 MEQ PO BID for Electrolyte Replacement, #60 TAB 0 Refills Warfarin (Warfarin) 2.5 Mg Tab 1.25 MG PO DAILY for Blood Clot Prevention, #30 TAB 0 Refills Discontinued Medications: Ciprofloxacin (Cipro) 250 Mg Tab 250 MG PO BID for Infection for 5 Days, #10 TAB 0 Refills Losartan (Losartan) 50 Mg Tab 50 MG PO DAILY for Blood Pressure Management, #30 TAB 0 Refills Metoprolol Tartrate (Metoprolol Tartrate) 25 Mg Tab 50 MG PO Q12HR for afib, #60 TAB 3 Refills Additional Information Patient examined. Assessment and plan formulated with Claudia Damon PA-C. I agree with the above. Claudia Damon Jan 12, 2017 07:35 Rey Daniels DO Jan 12, 2017 23:32
[2017-01-12] MEDS: MULTIVITAMINS/MINERALS THERAPEUTIC TAB PO SCH (09:28)
[2017-01-12] MEDS: FUROSEMIDE 20 MG TAB PO SCH (09:28)
[2017-01-12] MEDS: DILTIAZEM-CD 240 MG CAP ER PO SCH (09:28)
[2017-01-12] MEDS: FERROUS SULFATE 325 MG (65 MG ELEMENTAL IRON) TAB PO SCH (09:28)
[2017-01-12] MEDS: FOLIC ACID 1 MG TAB PO SCH (09:28)
[2017-01-12] MEDS: POTASSIUM CHLORIDE 8 MEQ CONTROLLED RELEASE TAB PO SCH (09:28)
[2017-01-12] MEDS: METOPROLOL TARTRATE 25 MG TAB PO SCH (09:31)
[2017-01-12] MEDS ORDERED: DIGOXIN 0.125 MG TAB PO ONE (11:30)
== END 2017-01-12 16:42 | DRG 309 ==
LOC: NEPE 07:00 → NEDA 09:36 → NEPGCP 10:47 → OBSVTOIN 01-07 08:24 → N04A 01-07 12:29
PROVIDERS: ADMIT Hospitalist; ATTEND Hospitalist
DX: I48.91 Unspecified atrial fibrillation (principal); N39.0 Urinary tract infection, site not specified; I11.0 Hypertensive heart disease with heart failure; I50.22 Chronic systolic (congestive) heart failure; I42.9 Cardiomyopathy, unspecified; H91.90 Unspecified hearing loss, unspecified ear; Z95.2 Presence of prosthetic heart valve; Z95.810 Presence of automatic (implantable) cardiac defibrillator; Z86.73 Personal history of transient ischemic attack (TIA), and cerebral infarction without residual deficits; Z79.01 Long term (current) use of anticoagulants; D50.9 Iron deficiency anemia, unspecified; E78.5 Hyperlipidemia, unspecified; E03.9 Hypothyroidism, unspecified; M06.9 Rheumatoid arthritis, unspecified; I08.3 Combined rheumatic disorders of mitral, aortic and tricuspid valves; B96.1 Klebsiella pneumoniae [K. pneumoniae] as the cause of diseases classified elsewhere; I47.1 Supraventricular tachycardia; T46.0X5A Adverse effect of cardiac-stimulant glycosides and drugs of similar action, initial encounter; Z80.6 Family history of leukemia
CPT/HCPCS: 71010; 80048; 80053; 80162; 81001; 83735; 84484; 85007; 85025; 85027; 85060; 85610; 87040; 93005; 93971; 94150; 96361; 96374; G0378; G8987-GP; G8988-GP; J0153; J1160; J7040

== ENCOUNTER 2017-02-03 10:33 | Inpatient (IN) | payer MEDICARE ==
[~2017-02-03] VITALS: Ht 152.4 cm; Wt 60.4 kg
[~2017-02-03 10:33] MED LIST changes: -CIPR250T52 PO; +DILT240C44 PO; -LOSA50TA PO
[2017-02-03] MEDS ORDERED: IOHEXOL 350 MG/ML 10 ML VIAL (for RAD DIAG) IVCONTRAST ONE (10:34)
[2017-02-03 10:38] VITALS: BP 110/64; PULSE 88; RESP 18; TEMP 97.8; O2SAT 98
[2017-02-03 10:47] VITALS: BP 99/51; PULSE 83; RESP 16; O2SAT 97
[2017-02-03] MEDS ORDERED: SODIUM CHLORIDE 0.9% FLUSH 10 ML FLUSH IV FLUSH PRN (11:00)
[2017-02-03 11:46] LABS: AUTOMATED NEUTROPHIL # 35.7 TH/MM3 (1.8-7.7); BASOPHIL % 0.1 % (0.0-2.0); BILIRUBIN, URINE NEG (NEG); BLOOD, URINE NEG (NEG); GLUCOSE,URINE NEG (NEG); HEMATOCRIT 29.3 % (35.0-46.0); HEMOGLOBIN 9.1 GM/DL (11.6-15.3); HYALINE CAST, URINE 3 /lpf (RARE); KETONE, URINE NEG (NEG); LYMPH % 1.3 % (9.0-44.0); LYMPHOCYTE # 0.5 TH/MM3 (1.0-4.8); MEAN CORPUSCULAR HEMOGLOBIN 26.4 PG (27.0-34.0); MEAN CORPUSCULAR HGB CONC 31.1 % (32.0-36.0); MEAN PLATELET VOLUME 8.4 FL (7.0-11.0); MONO % 2.8 % (0.0-8.0); MONOCYTE # 1.1 TH/MM3 (0-0.9); NEUT % 95.8 % (16.0-70.0); NITRITE,URINE NEG (NEG); PLATELET COUNT 151 TH/MM3 (150-450); RED BLOOD COUNT 3.44 MIL/MM3 (4.00-5.30); RED CELL DISTRIBUTION WIDTH 19.3 % (11.6-17.2); SQUAMOUS EPITHELIAL CELL URINE 1 /hpf (0-5); URINE COLOR YELLOW (YELLW/STRAW); URINE LEUKOCYTE ESTERASE NEG (NEG); WHITE BLOOD COUNT 37.3 TH/MM3 (4.0-11.0)
--- NOTE | 2017-02-03 12:00 | PD ---
HPI Chief Complaint: Complaint Time Seen by Provider: 10:46 Travel History International Travel<30 days: No Contact w/Intl Traveler<30days: No Traveled to known affect area: No History of Present Illness HPI The patient's 86 years old and arrives to the ER for " complaint." EMS relays that the patient has had urinary frequency and possible urinary retention this prompting ER evaluation. Patient denies chest pain stress of breath abdominal pain nausea vomiting in the ER. The daughter arrives and provides additional information including altered mental status today with the patient normally lucid. Daughter also notes history of sacral decubitus ulcer. Daughter also notes pt started Cardizem one day prior. PFSH Past Medical History Hx Anticoagulant Therapy: Yes Arthritis: Yes (LEGS) Asthma: No Autoimmune Disease: No Blood Disorders: No Heart Rhythm Problems: Yes (AFIB ) Cancer: No Cardiovascular Problems: Yes (MITRAL VALVE REPLACEMENT ) High Cholesterol: Yes Chemotherapy: No Chest Pain: No Congestive Heart Failure: Yes COPD: No Cerebrovascular Accident: Yes (TIA ) Diabetes: No Diminished Hearing: Yes (BILATERAL HEARING AIDES) Endocrine: Yes Gastrointestinal Disorders: No GERD: No Glaucoma: No Headaches: No Hepatitis: No Hiatal Hernia: No Heparin Induced Thrombocytopen: No Hypertension: Yes Immune Disorder: No Implanted Vascular Access Dvce: Yes Kidney Stones: No Musculoskeletal: Yes (ARTHRITIS BILATERAL KNEES AND LEFT HIP) Neurologic: Yes (TIA) Reproductive: No Respiratory: No Integumentary: Yes (LYMPHADEMA LEGS ) Migraines: No Myocardial Infarction: No Radiation Therapy: No Renal Failure: No Seizures: No Sickle Cell Disease: No Sleep Apnea: No Thyroid Disease: Yes (HYPOTHYROID) Ulcer: No Tetanus Vaccination: > 5 Years Influenza Vaccination: Yes Menopausal: Yes Past Surgical History Abdominal Surgery: No AICD: Yes ([facility] ) Appendectomy: No Arteriovenous Shunt: No Body Medical Devices: MECHANICAL MITRAL VALVE, PM/AICD Cardiac Surgery: No Cholecystectomy: No Ear Surgery: No Endocrine Surgery: No Eye Surgery: No Genitourinary Surgery: No Gynecologic Surgery: No Hysterectomy: No Insulin Pump: No Joint Replacement: No Oral Surgery: No Pacemaker: Yes (PLACED 09/30/08) Thoracic Surgery: Yes Tonsillectomy: Yes Valve Replacement: Yes (MITRAL VALVE 1999) Other Surgery: Yes (PM/AICD 2003, MVR 1999, ) Social History Alcohol Use: No Tobacco Use: No Substance Use: No Allergies-Medications (Allergen,Severity, Reaction): Coded Allergies: No Known Allergies (Verified Allergy, Unknown, 02/03/17) Reported Meds & Prescriptions Reported Meds & Active Scripts Active Metoprolol Tartrate 25 Mg Tab 75 Mg PO Q12HR Digoxin 0.125 Mg Tab 0.125 Mg PO DAILY Reported Artificial Tears (Dextran 70/Hypromellose) 1 Each Droperette 1 Drop EACH EYE DAILY PRN Warfarin 1 Mg Tab 2 Mg PO TUTHSA Take 2 tablets (2mg) daily on Tuesday, and Tuesday Poly-Iron 150 Forte (Iron Polysaccharide [id number]) 150-25MG-1 Mcg Cap 1 Cap PO DAILY Metolazone 5 Mg Tab 5 Mg PO DAILY Cartia Xt (Diltiazem ER 24 HR) 120 Mg Caper 120 Mg PO DAILY Coenzyme Q10 (Ubidecarenone) 200 Mg Cap 200 Mg PO DAILY Folic Acid 1 Mg Tablet 1 Mg PO DAILY Warfarin 1 Mg Tab 1 Mg PO SUMOWEFR Take 1 tablet (1mg) daily on Tuesday,Tuesday,Tuesday and Tuesday Ocuvite Adult 50+ (Multiple Vitamins W/ Minerals) 1 Cap 1 Cap PO DAILY Levothyroxine (Levothyroxine Sodium) 75 Mcg Tab 75 Mcg PO DAILY K-Tab (Potassium Chloride) 8 Meq Tab 8 Meq PO BID Furosemide 20 Mg Tab 20 Mg PO BID Atorvastatin (Atorvastatin Calcium) 10 Mg Tab 10 Mg PO HS Gabapentin 300 Mg Cap 300 Mg PO HS Review of Systems Except as stated in HPI: all other systems reviewed are Neg Cardiovascular: No: Chest Pain or Discomfort Respiratory: No: Cough, Shortness of Breath Physical Exam Narrative GENERAL: 86-year-old female pleasant well-nourished well-developed SKIN: Focused skin assessment warm/dry. HEAD: Atraumatic. Normocephalic. EYES: Pupils equal and round. No scleral icterus. No injection or drainage. ENT: No nasal bleeding or discharge. Mucous membranes pink and moist. NECK: Trachea midline. No JVD. CARDIOVASCULAR: Irregular. Rate approx 90. RESPIRATORY: No accessory muscle use. Clear to auscultation. Breath sounds equal bilaterally. GASTROINTESTINAL: Abdomen soft, non-tender, nondistended. Hepatic and splenic margins not palpable. MUSCULOSKELETAL: The region of the right calf there is an open wound with discharge. No crepitus. Ecchymosis about the R knee with minimal swelling and TTP. NEUROLOGICAL: Patient answers questions. There is no focal cranial nerve deficit. She is moving all extremities normally. PSYCHIATRIC: Appropriate mood and affect; insight and judgment normal. Data Data Last Documented VS Vital Signs Date Time Temp Pulse Resp B/P (MAP) Pulse Ox O2 Delivery O2 Flow Rate FiO2 02/03/17 14:00 74 16 112/56 (74) 96 Room Air 02/03/17 10:38 97.8 VS reviewed Orders Orders Basic Metabolic Panel (Bmp) (02/03/17 10:51) Complete Blood Count With Diff (02/03/17 10:51) Urinalysis - C+S If Indicated (02/03/17 10:51) Iv Access Insert/Monitor (02/03/17 10:51) Ecg Monitoring (02/03/17 10:51) Oximetry (02/03/17 10:51) Sodium Chloride 0.9% Flush (Ns Flush) (02/03/17 11:00) ^ Straight Catheter (02/03/17 10:51) Chest, Single Ap (02/03/17 ) Ct Abd/Pel W Iv Contrast(Rout) (02/03/17 13:13) Piperacil-Tazo 3.375 Gm Premix (Zosyn 3. (02/03/17 13:15) Iohexol 350 Inj (Omnipaque 350 Inj) (02/03/17 10:34) Admit Order (Ed Use Only) (02/03/17 ) [employer] / Telemetry SHELIA.Q8H (02/03/17 14:53) Vital Signs (Adult) Q4H (02/03/17 14:53) Diet Heart Healthy (02/03/17 Dinner) Activity Bed Rest (02/03/17 14:53) Notify Dr: Other (02/03/17 14:53) Labs Laboratory Tests Test 02/03/17 11:30 White Blood Count 37.3 TH/MM3 Red Blood Count 3.44 MIL/MM3 Hemoglobin 9.1 GM/DL Hematocrit 29.3 % Mean Corpuscular Volume 85.0 FL Mean Corpuscular Hemoglobin 26.4 PG Mean Corpuscular Hemoglobin Concent 31.1 % Red Cell Distribution Width 19.3 % Platelet Count 151 TH/MM3 Mean Platelet Volume 8.4 FL Neutrophils (%) (Auto) 95.8 % Lymphocytes (%) (Auto) 1.3 % Monocytes (%) (Auto) 2.8 % Eosinophils (%) (Auto) 0.0 % Basophils (%) (Auto) 0.1 % Neutrophils # (Auto) 35.7 TH/MM3 Lymphocytes # (Auto) 0.5 TH/MM3 Monocytes # (Auto) 1.1 TH/MM3 Eosinophils # (Auto) 0.0 TH/MM3 Basophils # (Auto) 0.0 TH/MM3 CBC Comment AUTO DIFF Differential Total Cells Counted 100 Neutrophils % (Manual) 89 % Band Neutrophils % 7 % Lymphocytes % 2 % Monocytes % 2 % Neutrophils # (Manual) 35.8 TH/MM3 Differential Comment FINAL DIFF MANUAL Toxic Granulation 2+ Platelet Estimate NORMAL Platelet Morphology Comment NORMAL Tear Drop Cells 1+ Acanthocytes OCC Urine Color YELLOW Urine Turbidity CLEAR Urine pH 5.0 Urine Specific [place] 1.016 Urine Protein NEG mg/dL Urine Glucose (UA) NEG mg/dL Urine Ketones NEG mg/dL Urine Occult Blood NEG Urine Nitrite NEG Urine Bilirubin NEG Urine Urobilinogen LESS THAN 2.0 MG/DL Urine Leukocyte Esterase NEG Urine RBC LESS THAN 1 /hpf Urine WBC LESS THAN 1 /hpf Urine Squamous Epithelial Cells 1 /hpf Urine Hyaline Casts 3 /lpf Microscopic Urinalysis Comment CULT NOT INDICATED Blood Urea Nitrogen 73 MG/DL Creatinine 0.78 MG/DL Random Glucose 109 MG/DL Calcium Level 8.6 MG/DL Sodium Level 139 MEQ/L Potassium Level 4.2 MEQ/L Chloride Level 104 MEQ/L Carbon Dioxide Level 23.2 MEQ/L Anion Gap 12 MEQ/L Estimat Glomerular Filtration Rate 70 ML/MIN [facility] Medical Decision Making Medical Screen Exam Complete: Yes Emergency Medical Condition: Yes Medical Record Reviewed: Yes Differential Diagnosis pna, dehydration, sepsis, cellulitis Narrative Course CBC & BMP Diagram 02/03/17 11:30 Calcium Level 8.6 UA: No UTI CXR: No dense consolidation BUN creatinine ratio is markedly elevated in comparison to priors, approx 20/ 0.6 previously ? RLE cellulitis Zosyn started Admission for electrolyte management and IV abx d/w Dr Cabrera for [facility] Diagnosis Primary Impression: Altered mental status Qualified Codes: R41.82 - Altered mental status, unspecified Additional Impression: Dehydration Admitting Information Admitting Physician Requests: Admit Dangelo Ramirez MD Feb 03, 2017 12:00
[2017-02-03 12:04] LABS: BICARBONATE 23.2 MEQ/L (21.0-32.0); CALCIUM 8.6 MG/DL (8.5-10.1); CREATININE 0.78 MG/DL (0.50-1.00)
[2017-02-03 12:28] LABS: BANDS 7 % (0-6); LYMPHOCYTES 2 % (9-44); MONOCYTES 2 % (0-8); NEUTROPHIL # MANUAL DIFF 35.8 TH/MM3 (1.8-7.7); POLYS (SEG NEUTROPHILS) 89 % (16-70); TEARDROP RBCS 1+ (NORMAL); TOXIC GRANULATION 2+ (NORMAL)
[2017-02-03 12:29] LABS: ACANTHOCYTES OCC (NORMAL)
[2017-02-03] MEDS ORDERED: PIPERACIL-TAZO 3.375 GM PREMIX 50 ML IV ONE (13:15)
[2017-02-03] MEDS ORDERED: POLY150C2 PO (13:48)
[2017-02-03] MEDS ORDERED: CART120C PO (13:48)
[2017-02-03] MEDS ORDERED: WARF4TAB52 PO ×2 (13:48)
[2017-02-03] MEDS ORDERED: METO5TAB3 PO (13:48)
[2017-02-03] MEDS ORDERED: ARTISOL3 EACH EYE (13:48)
[2017-02-03] MEDS ORDERED: FOLI1TAB6 PO (13:48)
[2017-02-03] MEDS ORDERED: COEN200C PO (13:48)
[2017-02-03 14:00] VITALS: BP 112/56; PULSE 74; RESP 16; O2SAT 96
--- NOTE | 2017-02-03 14:17 | RADRPT ---
EXAM DATE/TIME: 02/03/2017 13:27 [facility] COMPARISON: CHEST SINGLE AP, January 08, 2017, 14:26. INDICATIONS : Fever, cough, congestion. MEDICAL HISTORY : Hypertension. Congestive heart failure. SURGICAL HISTORY : Pacemaker. Mitral valve replacement. ENCOUNTER: Initial ACUITY: 2 days PAIN SCORE: 0/10 LOCATION: Bilateral chest FINDINGS: A single view of the chest demonstrates the lungs to be symmetrically aerated without evidence of mas s, infiltrate or effusion. The heart size is enlarged but stable. Is evidence of previous cardiothor acic surgery. There is a pacemaker overlying the left chest.. CONCLUSION: No acute pulmonary infiltrates. Stuart Carrero MD on February 03, 2017 at 14:15 Board Certified Radiologist. This report was verified electronically.
--- NOTE | 2017-02-03 14:49 | RADRPT ---
EXAM DATE/TIME: 02/03/2017 14:10 [facility] COMPARISON: No previous studies available for comparison. INDICATIONS : Diffuse abdomen pain with left leg pain. IV CONTRAST: 96 cc Omnipaque 350 (iohexol) IV ORAL CONTRAST: No oral contrast ingested. RADIATION DOSE: 7.58 CTDIvol (mGy) MEDICAL HISTORY : Cardiovascular disease. Hypertension. SURGICAL HISTORY : Defibrillator. Pacemaker. ENCOUNTER: Initial ACUITY: 1 day PAIN SCALE: 1/10 LOCATION: Left lower quadrant TECHNIQUE: Volumetric scanning of the abdomen and pelvis was performed. Using automated exposure control and ad justment of the mA and/or kV according to patient size, radiation dose was kept as low as reasonably achievable to obtain optimal diagnostic quality images. DICOM format image data is available electro nically for review and comparison. FINDINGS: LOWER LUNGS: Small bilateral pleural effusions. Lungs are otherwise clear LIVER: Multiple low density lesions in the hepatic parenchyma have density characteristics of benign cysts. There is no dilation of the biliary tree. Multiple calcified gallstones in the dependent portion of the gallbladder lumen. Gallbladder is mildly distended. SPLEEN: Normal size without lesion. PANCREAS: Within normal limits. KIDNEYS: 4.2 cm renal cortical cyst off the medial aspect of the superior pole the right kidney. Otherwise neg ative. ADRENAL GLANDS: Within normal limits. VASCULAR: There is no aortic aneurysm. BOWEL/MESENTERY: Complex, 11.9 x 6.1 cm mass lesion in the right mid abdomen appears to be contiguous with the ascendi ng colon. The lesion also abuts up against the duodenum and the head of the pancreas. Severe divertic ular disease of the sigmoid without diverticulitis. There is some free fluid in the pelvis.. ABDOMINAL WALL: Within normal limits. RETROPERITONEUM: Multiple hypodense lymph nodes are identified with the largest just posterior to the splenic vein and pancreas at 3.2 cm. Additional lymph nodes in the left perihilar distribution measures 3.2 cm in jolie meter. Smallest lesion is juxtaposed between the aorta and IVC at approximately the L4 vertebral body level. BLADDER: No wall thickening or mass. REPRODUCTIVE: Within normal limits. INGUINAL: There is no lymphadenopathy or hernia. MUSCULOSKELETAL: Severe degenerative changes in the hips bilaterally, left worse than right. CONCLUSION: 1. Large, 11.9 x 6.1 cm mass lesion in the right mid abdomen appears to be contiguous with the ascend ing colon. In fact, there is air within the collection suggesting luminal communication. Mass lesion also abuts up against the duodenum and the head of the pancreas, however. Diagnostic considerations i nclude a bowel primary versus sarcomatous lesion that has invaded regional structures. 2. In addition, there are multiple low density lymph nodes located posterior to the body of the pancr eas, in the retroperitoneum leftward at the level of the renal hilum and a small node juxtaposed betw een the aorta and IVC measuring 1.7 cm in diameter. 3. Cholelithiasis. 4. 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 5. Small amount of free fluid in the dependent portion of the deep pelvis. Antwan Quiroz MD on February 03, 2017 at 14:37 Board Certified Radiologist. This report was verified electronically.
--- NOTE | 2017-02-03 15:22 | HHI.HP ---
HPI Service [facility]ists Primary Care Physician Dr. Adelfo Bowen Admission Diagnosis AMS; Dehydration Chief Complaint: Confusion, generazlied weakness, anorexia Travel History International Travel<30 Days: No Contact w/Intl Traveler <30 Da: No Traveled to Known Affected Are: No History of Present Illness Mrs. Franks is a pleasant 86 y/o female with atrial fibrillation on chronic anticoagulation with Coumadin, Cardiomyopathy with AICD, CHF with EF 25-30%, and iron deficiency anemia who was recently admitted to [facility] twice, initially from 01/01/17 to 01/04/17 for anemia, defibrillator firing and A. fib RVR and then again from 01/05/17 to 01/12/17 after her AICD fired again and she was found to be in A. fib RVR. During that admission she had difficulty with rate control for her A. fib. She was discharged on Cardizem 240mg po daily, Metoprolol 75mg po BID and Digoxin 0.125mg po daily. She was noted to have an elevated WBC count during her first admission in December but it was thought to be related to UTI and her AICD firing. During her second admission in December her WBC continued to elevate and the etiology of this was unclear. She had a repeat UA was negative during admission which was negative. Cipro was completed on 01/09. CXR (01/08) noted post surgical features with compensated cardiomegaly, no acute abnormality or significant interval change. Blood cultures drawn on 01/09 with no growth x 5 days. Peripheral blood smear (01/10) noted leukocytosis with neutrophilia, showing a left shift and toxic granulation suggesting a reactive or infectious process. 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 She has followed as an outpatient with Dr. Niño. During recent admission pt received 1 unit PRBCs and Iron infusion during her first admission in December. Per outpatient records, outpatient iron studies have shown a very low iron saturation of 10%. She has had extensive work-up including thyroid function testing, B12 and folate testing which was all normal. 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 As an outpt she had previously reported neg stool guaiac by PCP. After her last admission pt was discharged to [facility] and her daughter, Sandy, reports that the family did not feel that the pt was being well cared for at [facility]. After a week and a half she was discharged from [facility] and went home with [facility] and [facility] coming out to the house. Sandy states that the pt developed a sacral decubitus while at [facility] that the [facility] nurses were following and did not seem to be worsening. There have been a lot of issues with controlling her INR since discharge and it has been running high per the pts daughter. Pt has noted ecchymosis on the upper and lower extremities. She also has hx of lymphedema and had some skin tears and open wounds on her legs which were recently noted by the [facility] nurse. Over the last few days the pt has had decreased appetite, complaints of pain in various locations, including the abdomen and lower extremities. Pt has not been eating much or ambulating much at home. Pt has also recently started to have issues with rectal pain and hemorrhoids. She has not had any constipation, diarrhea, melena or BRBPR reported. Today the pt reportedly has been more lethargic and confused. There was question about possible urinary symptoms but UA in the ED was negative. Labs in the ED noted an elevated WBC count of 37.7 which is higher than what it was during last admission. Pt was given a dose of Zosyn in the ED. She has not had any reported fevers or chill. CT Abd/pelvis was performed in the ED and noted a large, 11.9 x 6.1 cm mass lesion in the right mid abdomen appears to be contiguous with the ascending colon. In fact, there is air within the collection suggesting luminal communication. Mass lesion also abuts up against the duodenum and the head of the pancreas, however. Diagnostic considerations include a bowel primary versus sarcomatous lesion that has invaded regional structures. In addition, there are multiple low density lymph nodes located posterior to the body of the pancreas, in the retroperitoneum leftward at the level of the renal hilum and a small node juxtaposed between the aorta and IVC measuring 1.7 [address] in diameter. The CT scan findings were discussed with the pts daughter, Sandy, and her son, Sahil. Review of Systems Constitutional: COMPLAINS OF: Change in appetite, DENIES: Fever, Chills, Night Sweats Eyes: DENIES: Vision loss Ears, nose, mouth, throat: DENIES: Hearing loss Respiratory: DENIES: Cough, Shortness of breath Cardiovascular: COMPLAINS OF: Lower Extremity Edema, DENIES: Chest pain, Palpitations, Dyspnea on Exertion Gastrointestinal: COMPLAINS OF: Abdominal pain, Difficulty Swallowing, DENIES: Black stools, Bloody stools, Constipation, Diarrhea, Nausea, Vomiting Genitourinary: DENIES: Urgency, Dysuria Musculoskeletal: DENIES: Back pain Integumentary: DENIES: Rash Neurologic: DENIES: Headache, Speech Problems Psychiatric: DENIES: Confusion Past Family Social History Past Medical History Anemia iron deficiency with 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 Hyperlipidemia Hypothyroidism HTN cardiomyopathy with systolic CHF Defibrillator Mechanical Mitral valve Rheumatoid Arthritis Transient Ischemic Attack (TIA) 2D echo (12/09/14): - EF 25-30% - LA moderately increased in size - Mechanical mitral valve, no mitral valve stenosis - Trace mitral regurg - Aortic valve sclerosis, mild aortic valve stenosis - Moderate to severe tricuspid valve regurgitation - PA pressure moderately elevated at 44mmHg Past Surgical History AICD placement Colonoscopy Mechanical mitral valve replacement Tonsillectomy Tubal ligation Reported Medications Metoprolol Tartrate 25 Mg Tab 75 Mg PO Q12HR Digoxin 0.125 Mg Tab 0.125 Mg PO DAILY Artificial Tears (Dextran 70/Hypromellose) 1 Each Droperette 1 Drop EACH EYE DAILY PRN Warfarin 1 Mg Tab 2 Mg PO TUTHSA Take 2 tablets (2mg) daily on Tuesday, and Tuesday Poly-Iron 150 Forte (Iron Polysaccharide [id number]) 150-25MG-1 Mcg Cap 1 Cap PO DAILY Metolazone 5 Mg Tab 5 Mg PO DAILY Cartia Xt (Diltiazem ER 24 HR) 120 Mg Caper 120 Mg PO DAILY Coenzyme Q10 (Ubidecarenone) 200 Mg Cap 200 Mg PO DAILY Folic Acid 1 Mg Tablet 1 Mg PO DAILY Warfarin 1 Mg Tab 1 Mg PO SUMOWEFR Take 1 tablet (1mg) daily on Tuesday,Tuesday,Tuesday and Tuesday Ocuvite Adult 50+ (Multiple Vitamins W/ Minerals) 1 Cap 1 Cap PO DAILY Levothyroxine (Levothyroxine Sodium) 75 Mcg Tab 75 Mcg PO DAILY K-Tab (Potassium Chloride) 8 Meq Tab 8 Meq PO BID Furosemide 20 Mg Tab 20 Mg PO BID Atorvastatin (Atorvastatin Calcium) 10 Mg Tab 10 Mg PO HS Gabapentin 300 Mg Cap 300 Mg PO HS Allergies: Coded Allergies: No Known Allergies (Verified Allergy, Unknown, 02/03/17) Family History Father at 93 secondary to old age Social History Prior to recent hospitalization pt had been living alone, has a daughter that lives in [place] and helps often. She has been at a rehab since her last discharge in early January 2017 Denies ETOH use, tobacco use or illicit drugs use Physical Exam Vital Signs Vital Signs Date Time Temp Pulse Resp B/P (MAP) Pulse Ox O2 Delivery O2 Flow Rate FiO2 02/03/17 10:47 83 16 99/51 (67) 97 Room Air 02/03/17 10:42 83 18 02/03/17 10:38 97.8 88 18 110/64 (79) 98 Physical Exam GENERAL: This is a well-nourished, well-developed patient, in no apparent distress. HEENT: Atraumatic. Normocephalic. No temporal or scalp tenderness. No scleral icterus. Airway patent. NECK: Trachea midline, supple, nontender. CARDIO: Irregular RESP: Poor inspiratory effort, CTA anteriorly bilaterally. No wheezes, rales, or rhonchi. ABD: +BS, soft, nondistended, mild diffuse tenderness. No guarding. EXT: Bilateral LE mild edema, several skin tears on the RLE and multiple areas of ecchymosis NEUROLOGICAL: Awake and alert. Falls asleep easily during interview. Motor and sensory grossly within normal limits. Normal speech. Laboratory Laboratory Tests Test 02/03/17 11:30 White Blood Count 37.3 Red Blood Count 3.44 Hemoglobin 9.1 Hematocrit 29.3 Mean Corpuscular Volume 85.0 Mean Corpuscular Hemoglobin 26.4 Mean Corpuscular Hemoglobin Concent 31.1 Red Cell Distribution Width 19.3 Platelet Count 151 Mean Platelet Volume 8.4 Neutrophils (%) (Auto) 95.8 Lymphocytes (%) (Auto) 1.3 Monocytes (%) (Auto) 2.8 Eosinophils (%) (Auto) 0.0 Basophils (%) (Auto) 0.1 Neutrophils # (Auto) 35.7 Lymphocytes # (Auto) 0.5 Monocytes # (Auto) 1.1 Eosinophils # (Auto) 0.0 Basophils # (Auto) 0.0 CBC Comment AUTO DIFF Differential Total Cells Counted 100 Neutrophils % (Manual) 89 Band Neutrophils % 7 Lymphocytes % 2 Monocytes % 2 Neutrophils # (Manual) 35.8 Differential Comment FINAL DIFF MANUAL Toxic Granulation 2+ Platelet Estimate NORMAL Platelet Morphology Comment NORMAL Tear Drop Cells 1+ Acanthocytes OCC Urine Color YELLOW Urine Turbidity CLEAR Urine pH 5.0 Urine Specific [place] 1.016 Urine Protein NEG Urine Glucose (UA) NEG Urine Ketones NEG Urine Occult Blood NEG Urine Nitrite NEG Urine Bilirubin NEG Urine Urobilinogen LESS THAN 2.0 Urine Leukocyte Esterase NEG Urine RBC LESS THAN 1 Urine WBC LESS THAN 1 Urine Squamous Epithelial Cells 1 Urine Hyaline Casts 3 Microscopic Urinalysis Comment CULT NOT INDICATED Blood Urea Nitrogen 73 Creatinine 0.78 Random Glucose 109 Calcium Level 8.6 Sodium Level 139 Potassium Level 4.2 Chloride Level 104 Carbon Dioxide Level 23.2 Anion Gap 12 Estimat Glomerular Filtration Rate 70 Result Diagram: 02/03/17 1130 02/03/17 1130 Imaging Last Impressions Abdomen/Pelvis CT 02/03/17 1313 Signed Impressions: Service Date/Time: January 14:10 - CONCLUSION: 1. Large, 11.9 x 6.1 cm mass lesion in the right mid abdomen appears to be contiguous with the ascending colon. In fact, there is air within the collection suggesting luminal communication. Mass lesion also abuts up against the duodenum and the head of the pancreas, however. Diagnostic considerations include a bowel primary versus sarcomatous lesion that has invaded regional structures. 2. In addition , there are multiple low density lymph nodes located posterior to the body of the pancreas, in the retroperitoneum leftward at the level of the renal hilum and a small node juxtaposed between the aorta and IVC measuring 1.7 cm in diameter. 3. Cholelithiasis. 4. 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 5. Small amount of free fluid in the dependent portion of the deep pelvis. Antwan Quiroz MD Chest X-Ray 02/03/17 0000 Signed Impressions: Service Date/Time: January 13:27 - CONCLUSION: No acute pulmonary infiltrates. MD Ghassan Cam VTE Risk Assessment Caprini VTE Risk Assessment: Mod/High Risk (score >= 2) Caprini Risk Assessment Model Point Value = 1 Point Value = 2 Point Value = 3 Point Value = 5 Age 41-60 Minor surgery BMI > 25 kg/m2 Swollen legs Varicose veins or History of unexplained or recurrent spontaneous Oral contraceptives or hormone replacement Sepsis (< 1 month) Serious lung disease, including pneumonia (< 1 month) Abnormal pulmonary function Acute myocardial infarction Congestive heart failure (< 1 month) History of inflammatory bowel disease Medical patient at bed rest Age 61-74 Arthroscopic surgery Major open surgery (> 45 min) Laparoscopic surgery (> 45 min) Malignancy Confined to bed (> 72 hours) Immobilizing plaster cast Central venous access Age >= 75 History of VTE Family history of VTE Factor V Leiden Prothrombin [id number] Lupus anticoagulant Anticardiolipin antibodies Elevated serum homocysteine Heparin-induced thrombocytopenia Other congenital or acquired thrombophilia Stroke (< 1 month) Elective arthroplasty Hip, pelvis, or leg fracture Acute spinal cord injury (< 1 month) Prophylaxis Regimen Total Risk Factor Score Risk Level Prophylaxis Regimen 0-1 Low Early ambulation 2 Moderate Order ONE of the following: *Sequential Compression Device (SCD) *Heparin 5000 units SQ BID 3-4 Higher Order ONE of the following medications: *Heparin 5000 units SQ TID *Enoxaparin/Lovenox 40 mg SQ daily (WT < 150 kg, CrCl > 30 mL/min) *Enoxaparin/Lovenox 30 mg SQ daily (WT < 150 kg, CrCl > 10-29 mL/min) *Enoxaparin/Lovenox 30 mg SQ BID (WT < 150 kg, CrCl > 30 mL/min) AND/OR *Sequential Compression Device (SCD) 5 or more Highest Order ONE of the following medications: *Heparin 5000 units SQ TID (Preferred with Epidurals) *Enoxaparin/Lovenox 40 mg SQ daily (WT < 150 kg, CrCl > 30 mL/min) *Enoxaparin/Lovenox 30 mg SQ daily (WT < 150 kg, CrCl > 10-29 mL/min) *Enoxaparin/Lovenox 30 mg SQ BID (WT < 150 kg, CrCl > 30 mL/min) AND *Sequential Compression Device (SCD) Assessment and Plan Problem List: (1) Intraabdominal mass ICD Codes: R19.00 - Intra-abdominal and pelvic swelling, mass and lump, unspecified site Status: Acute Plan: - Pt is an 86 y/o female with atrial fibrillation on chronic anticoagulation with Coumadin, Cardiomyopathy with AICD, CHF with EF 25-30%, and iron deficiency anemia who was recently admitted to [facility] twice, initially from 01/01/17 to 01/04/17 for anemia, defibrillator firing and A. fib RVR and then again from 01/05/17 to 01/12/17 after her AICD fired again and she was found to be in A. fib RVR. During that admission she had difficulty with rate control for her A. fib. She was discharged on Cardizem 240mg po daily, Metoprolol 75mg po BID and Digoxin 0.125mg po daily. She was noted to have an elevated WBC count during her first admission in December but it was thought to be related to UTI and her AICD firing. During her second admission in December her WBC continued to elevate and the etiology of this was unclear. She had a repeat UA was negative during admission which was negative. Cipro was completed on 01/09. CXR (01/08) noted post surgical features with compensated cardiomegaly, no acute abnormality or significant interval change. Blood cultures drawn on 01/09 with no growth x 5 days. Peripheral blood smear (01/10) noted leukocytosis with neutrophilia, showing a left shift and toxic granulation suggesting a reactive or infectious process. 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 She has followed as an outpatient with Dr. Niño. During recent admission pt received 1 unit PRBCs and Iron infusion during her first admission in December. Per outpatient records, outpatient iron studies have shown a very low iron saturation of 10%. She has had extensive work-up including thyroid function testing, B12 and folate testing which was all normal. 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 As an outpt she had previously reported neg stool guaiac by PCP. Intra-abdominal mass Iron Deficiency Anemia Leukocytosis - Over the last few days the pt has had decreased appetite, complaints of pain in various locations, including the abdomen and lower extremities. Pt has not been eating much or ambulating much at home. Pt has also recently started to have issues with rectal pain and hemorrhoids. She has not had any constipation, diarrhea, melena or BRBPR reported. - Today the pt reportedly has been more lethargic and confused. There was question about possible urinary symptoms but UA in the ED was negative. - Labs in the ED noted an elevated WBC count of 37.7 which is higher than what it was during last admission. - Pt was given a dose of Zosyn in the ED. She has not had any reported fevers or chill. - CT Abd/pelvis was performed in the ED and noted a large, 11.9 x 6.1 cm mass lesion in the right mid abdomen appears to be contiguous with the ascending colon. In fact, there is air within the collection suggesting luminal communication. Mass lesion also abuts up against the duodenum and the head of the pancreas, however. Diagnostic considerations include a bowel primary versus sarcomatous lesion that has invaded regional structures. In addition, there are multiple low density lymph nodes located posterior to the body of the pancreas, in the retroperitoneum leftward at the level of the renal hilum and a small node juxtaposed between the aorta and IVC measuring 1.7 cm in diameter. - The CT scan findings and the likely possibility of this being a malignancy was discussed with the pts daughter, Sandy, and her son, Sahil, in the ED. The pt is currently unaware of the CT scan findings per the families wishes at this time. Discussed that we will consult Dr. Niño to render an opinion as to whether or not to pursue further invasive measure to diagnose the exact etiology of this mass and the possible complications regarding biopsy (whether that be via colonoscopy vs. percutaneous biopsy). The family expressed concerns as to whether or not the pt would even be able to physical tolerate anesthesia for biopsy or even any chemotherapeutic treatment given her cardiac issues. - We discussed should they not want to pursue any further invasive measures that Hospice would be an appropriate option. They would like to hear from Dr. Niño first and then discuss amongst the siblings what would be the best course of action. - Consult Oncology - IVF - Zofran PRN - Ultram PRN for pain control - Wound care for the LE skin tears - Supportive care A. fib Elevated INR - BP has been running low. - Cont. Dig - Decrease Metoprolol dose to 25mg po BID - Hold Cardizem 120mg daily for now - Hold on resuming Coumadin, INR 4.5 at admission - INR in AM - Monitor on telemetry Cardiomyopathy - Pt with AICD in place - CHF with EF 25-30% - Cont. Lasix and Potassium - Monitor BMP Hypothyroidism - Cont. home meds (2) Leukocytosis ICD Codes: D72.829 - Elevated white blood cell count, unspecified Plan: - See above (3) Elevated INR ICD Codes: R79.1 - Abnormal coagulation profile Status: Acute Plan: - See above (4) Atrial fibrillation ICD Codes: I48.91 - Unspecified atrial fibrillation Status: Chronic Plan: - See above (5) Cardiomyopathy ICD Codes: I42.9 - Cardiomyopathy, unspecified Status: Chronic Plan: - See above Physician Certification 2 Midnight Certification Type: Admission for Inpatient Services Order for Inpatient Services The services are ordered in accordance with Medicare regulations or non- Medicare payer requirements, as applicable. In the case of services not specified as inpatient-only, they are appropriately provided as inpatient services in accordance with the 2-midnight benchmark. Estimated LOS (days): 3 3 days is the estimated time the patient will need to remain in the hospital, assuming treatment plan goals are met and no additional complications. Post-Hospital Plan: Not yet determined Becky Patton Feb 03, 2017 15:22
[2017-02-03 16:00] VITALS: BP_SYST 113; BP_SYST 119; BP_DIAS 56; BP_DIAS 59; PULSE 74; PULSE 88; RESP 16; O2SAT 94; O2SAT 97
[2017-02-03 16:00] LABS: INTERNATIONAL NORMALIZED RATIO 4.5 RATIO; PROTHROMBIN TIME - PATIENT 45.6 SEC (9.8-11.6)
[2017-02-03] MEDS ORDERED: ARTIFICIAL TEARS OPTH SOLN 15 ML BTL EACH EYE PRN (16:30)
[2017-02-03] MEDS ORDERED: ONDANSETRON HCL 4 MG/2 ML VIAL IV PRN (16:45)
[2017-02-03] MEDS ORDERED: ACETAMINOPHEN 325 MG TAB PO PRN (16:45)
[2017-02-03 18:03] LABS: CARCINOEMBRYONIC ANTIGEN 2.8 NG/ML (0.2-5.0)
[2017-02-03] MEDS: PETROLEUM/SHARK LIVER OIL/PHENYLEPHRINE 60 GM TUBE TOPICAL SCH (18:15)
[2017-02-03] MEDS: SODIUM CHLOR 0.9% 1000 ML INJ 1,000 ML IV SCH (18:15)
[2017-02-03] MEDS: traMADol HCL 50 MG TAB PO PRN (18:16)
[2017-02-03 20:00] VITALS: BP 109/53; PULSE 78; PULSE 97; RESP 20; TEMP 98.6; O2SAT 96
[2017-02-03] MEDS: GABAPENTIN 300 MG CAP PO SCH (20:19)
[2017-02-03] MEDS: HYDROCORTISONE ACETATE 25 MG SUPP RECTAL SCH (20:19)
[2017-02-03] MEDS: POTASSIUM CHLORIDE 8 MEQ CONTROLLED RELEASE TAB PO SCH (20:19)
[2017-02-03] MEDS: ATORVASTATIN 10 MG TAB PO SCH (20:20)
[2017-02-03 20:26] LABS: CA 19-9 20.7 U/ML (0.0-35.0)
[2017-02-03] MEDS: METOPROLOL TARTRATE 25 MG TAB PO SCH (20:32)
[2017-02-03] MEDS: FUROSEMIDE 20 MG TAB PO SCH (20:33)
[2017-02-03 21:38] VITALS: PULSE 78
[2017-02-04] VITALS (10 sets, daily range): BP systolic 106–139; BP diastolic 55–71; PULSE 73–109; RESP 16–22; TEMP 97.3–97.8; O2SAT 95–99
[2017-02-04] MEDS ORDERED: MORPHINE SULFATE 2 MG/ML INJ IV PUSH PRN (00:45)
[2017-02-04] MEDS: PETROLEUM/SHARK LIVER OIL/PHENYLEPHRINE 60 GM TUBE TOPICAL SCH ×5 (05:18→21:59)
[2017-02-04] MEDS: SODIUM CHLOR 0.9% 1000 ML INJ 1,000 ML IV SCH ×2 (05:18→18:06)
[2017-02-04] MEDS: traMADol HCL 50 MG TAB PO PRN (05:19)
[2017-02-04] MEDS: LEVOTHYROXINE SODIUM 75 MCG TAB PO SCH (05:19)
[2017-02-04] MEDS ORDERED: [UNRECOGNIZED DRUG - OTHER] PO SCH (09:00)
--- NOTE | 2017-02-04 10:21 | HHI.PR ---
Subjective Remarks doing ok. family present Objective Vitals awake. oriented heart reg lung cta abd s/nt ext ecchymosis/skin tears lower ext's Vital Signs Date Time Temp Pulse Resp B/P (MAP) Pulse Ox O2 Delivery O2 Flow Rate FiO2 02/04/17 08:31 97.3 84 22 111/55 (73) 95 02/04/17 07:42 78 02/04/17 04:00 97.8 89 19 116/56 (76) 96 02/04/17 04:00 73 02/04/17 00:00 74 02/04/17 00:00 97.7 75 20 111/58 (75) 98 02/03/17 21:38 78 02/03/17 20:00 78 02/03/17 20:00 Room Air 02/03/17 20:00 98.6 97 20 109/53 (71) 96 02/03/17 19:20 18 02/03/17 16:46 02/03/17 16:00 88 16 119/59 (79) 94 Room Air 02/03/17 16:00 74 16 113/56 (75) 97 Room Air 02/03/17 14:00 74 16 112/56 (74) 96 Room Air 02/03/17 10:47 83 16 99/51 (67) 97 Room Air 02/03/17 10:42 83 18 02/03/17 10:38 97.8 88 18 110/64 (79) 98 Result Diagram: 02/03/17 1130 02/03/17 1130 Imaging Last Impressions Abdomen/Pelvis CT 02/03/17 1313 Signed Impressions: Service Date/Time: January 14:10 - CONCLUSION: 1. Large, 11.9 x 6.1 cm mass lesion in the right mid abdomen appears to be contiguous with the ascending colon. In fact, there is air within the collection suggesting luminal communication. Mass lesion also abuts up against the duodenum and the head of the pancreas, however. Diagnostic considerations include a bowel primary versus sarcomatous lesion that has invaded regional structures. 2. In addition , there are multiple low density lymph nodes located posterior to the body of the pancreas, in the retroperitoneum leftward at the level of the renal hilum and a small node juxtaposed between the aorta and IVC measuring 1.7 cm in diameter. 3. Cholelithiasis. 4. 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 5. Small amount of free fluid in the dependent portion of the deep pelvis. Antwan Quiroz MD Chest X-Ray 02/03/17 0000 Signed Impressions: Service Date/Time: , February 03, 2017 13:27 - CONCLUSION: No acute pulmonary infiltrates. Stuart Carrero MD A/P Problem List: (1) Intraabdominal mass ICD Codes: R19.00 - Intra-abdominal and pelvic swelling, mass and lump, unspecified site Status: Acute Plan: - Pt is an 86 y/o female with atrial fibrillation on chronic anticoagulation with Coumadin, Cardiomyopathy with AICD, CHF with EF 25-30%, and iron deficiency anemia who was recently [place] [facility] from 01/01/17 to 01/04/17 for anemia, defibrillator firing and A. fib RVR and then again from 01/05/17 to 01/12/17 after her AICD fired again and she was found to be in A. fib RVR. During that admission she had difficulty with rate control for her A. fib. She was discharged on Cardizem 240mg po daily, Metoprolol 75mg po BID and Digoxin 0.125mg po daily. She was noted to have an elevated WBC count during her first admission in December but it was thought to be related to UTI and her AICD firing. During her second admission in December her WBC continued to elevate and the etiology of this was unclear. She had a repeat UA was negative during admission which was negative. Cipro was completed on 01/09. CXR (01/08) noted post surgical features with compensated cardiomegaly, no acute abnormality or significant interval change. Blood cultures drawn on 01/09 with no growth x 5 days. Peripheral blood smear (01/10) noted leukocytosis with neutrophilia, showing a left shift and toxic granulation suggesting a reactive or infectious process. 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 She has followed as an outpatient with Dr. Niño. During recent admission pt received 1 unit PRBCs and Iron infusion during her first admission in December. Per outpatient records, outpatient iron studies have shown a very low iron saturation of 10%. She has had extensive work-up including thyroid function testing, B12 and folate testing which was all normal. 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 As an outpt she had previously reported neg stool guaiac by PCP. Intra-abdominal mass Iron Deficiency Anemia Leukocytosis - Over the last few days the pt has had decreased appetite, complaints of pain in various locations, including the abdomen and lower extremities. Pt has not been eating much or ambulating much at home. Pt has also recently started to have issues with rectal pain and hemorrhoids. She has not had any constipation, diarrhea, melena or BRBPR reported. - Today the pt reportedly has been more lethargic and confused. There was question about possible urinary symptoms but UA in the ED was negative. - Labs in the ED noted an elevated WBC count of 37.7 which is higher than what it was during last admission. - Pt was given a dose of Zosyn in the ED. She has not had any reported fevers or chill. - CT Abd/pelvis was performed in the ED and noted a large, 11.9 x 6.1 cm mass lesion in the right mid abdomen appears to be contiguous with the ascending colon. In fact, there is air within the collection suggesting luminal communication. Mass lesion also abuts up against the duodenum and the head of the pancreas, however. Diagnostic considerations include a bowel primary versus sarcomatous lesion that has invaded regional structures. In addition, there are multiple low density lymph nodes located posterior to the body of the pancreas, in the retroperitoneum leftward at the level of the renal hilum and a small node juxtaposed between the aorta and IVC measuring 1.7 cm in diameter. Pt and family updated on abdomen mass. I reviewed the images. I explained I was not sure what it is...?sarcoma.?continous process for the bowel. The family wanted Dr Niño's opinion on whether it could be a malignancy. But they were leaning against any invasive procedures. They were discussing hospice and seemed to want a hospice consult after seen by Dr Niño. will await his evaluation.; A. fib Elevated INR - BP has been running low. - Cont. Dig - Decreased Metoprolol dose to 25mg po BID - Hold Cardizem 120mg daily for now - Hold on resuming Coumadin, INR 4.5 at admission - INR Cardiomyopathy - Pt with AICD in place - CHF with EF 25-30% - Cont. Lasix and Potassium - Monitor BMP Hypothyroidism - Cont. home meds (2) Leukocytosis ICD Codes: D72.829 - Elevated white blood cell count, unspecified Plan: - See above (3) Elevated INR ICD Codes: R79.1 - Abnormal coagulation profile Status: Acute Plan: - See above (4) Atrial fibrillation ICD Codes: I48.91 - Unspecified atrial fibrillation Status: Chronic Plan: - See above (5) Cardiomyopathy ICD Codes: I42.9 - Cardiomyopathy, unspecified Status: Chronic Plan: - See above Dilshad Cabrera MD Feb 04, 2017 10:21
[2017-02-04] MEDS: FUROSEMIDE 20 MG TAB PO SCH ×2 (10:28→21:58)
[2017-02-04] MEDS: METOPROLOL TARTRATE 25 MG TAB PO SCH ×2 (10:29→21:59)
[2017-02-04] MEDS: DIGOXIN 0.125 MG TAB PO SCH (10:30)
[2017-02-04] MEDS: HYDROCORTISONE ACETATE 25 MG SUPP RECTAL SCH ×2 (10:31→21:59)
[2017-02-04] MEDS: POTASSIUM CHLORIDE 8 MEQ CONTROLLED RELEASE TAB PO SCH ×2 (10:32→21:59)
--- NOTE | 2017-02-04 11:01 | PD.WCN.NOT ---
Wound Consult Description: Consult for pressure ulcer on sacrum and skin tears on LE per HERMANN Patton Communicated with: HERMANN Patton RN Patient Patient daughter at bedside Recommendation: OBTAIN AND PLACE PATIENT ON SPECIALTY SURFACE CONTINUE TO REPOSITION PATIENT EVERY 2 HOURS FROM LEFT TO RIGHT AND PRN FOR COMFORT. Apply to gluteal cleft and right buttock wounds: Calazime BID and PRN when cleansing. To right posterior calf wound: Change Exuderm (hydrocolloid) every 5 days and PRN for saturation or dislodgement Additional Information: Patient seen on for wounds to right leg, gluteal cleft, and right buttock. Patient present with bruising to all extremities and states that she is on coumadin. Right posterior calf wound measures 3cm x 3cm x ~0.2cm of yellow and brown dried exudate that was cleansed with wound cleanser and pat dry. A hydrocolloid was placed over the wound and may remain for up to 5 days unless soiled or dislodged. Patient was then positioned to her left side for assessment of sacrum and bilateral buttocks. There are two wounds with full thickness skin loss noted to the right buttock measuring approximately 1cm x 1cm x <0.1cm with well defined wound margins indicating a pressure etiology. Wounds have ~50%adipose tissue and ~50% pink tissue indicating a Stage 3 pressure injury with minimal bleeding noted when cleansed with wound cleanser and gauze. Gluteal cleft is noted with 3 wounds within each others periwounds measured as one wound 2.2cm x 0.5cm x ~0.2cm of 100% yellow tissue noted in the circular wound beds with well defined sharp wound margins indicating a pressure etiology. Patient is incontinent of urine and when speaking with the daughter plans for hospice will be made soon therefore aggressive treatment is not recommended. Calazime skin protectant was applied to gluteal cleft and right buttock wounds and is recommended BID and PRN for soiling. Also recommended is a specialty surface with Q2H turns from left to right unless therapy is in progress. Christine Chairez [facility] Feb 04, 2017 11:01
[2017-02-04 12:08] LABS: AUTOMATED NEUTROPHIL # 33.9 TH/MM3 (1.8-7.7); BASOPHIL % 0.1 % (0.0-2.0); HEMATOCRIT 26.9 % (35.0-46.0); HEMOGLOBIN 8.3 GM/DL (11.6-15.3); LYMPH % 1.2 % (9.0-44.0); LYMPHOCYTE # 0.4 TH/MM3 (1.0-4.8); MEAN CORPUSCULAR HEMOGLOBIN 26.3 PG (27.0-34.0); MEAN CORPUSCULAR HGB CONC 30.9 % (32.0-36.0); MEAN PLATELET VOLUME 8.1 FL (7.0-11.0); MONO % 2.9 % (0.0-8.0); NEUT % 95.8 % (16.0-70.0); PLATELET COUNT 149 TH/MM3 (150-450); RED BLOOD COUNT 3.16 MIL/MM3 (4.00-5.30); WHITE BLOOD COUNT 35.4 TH/MM3 (4.0-11.0)
[2017-02-04 12:28] LABS: INTERNATIONAL NORMALIZED RATIO 5.5 RATIO; PROTHROMBIN TIME - PATIENT 55.3 SEC (9.8-11.6)
[2017-02-04 13:14] LABS: BANDS 4 % (0-6); LYMPHOCYTES 2 % (9-44); METAMYELOCYTES 1 % (0-1); MONOCYTES 3 % (0-8); NEUTROPHIL # MANUAL DIFF 33.6 TH/MM3 (1.8-7.7); OVALOCYTES 1+ (NORMAL); POLYS (SEG NEUTROPHILS) 90 % (16-70); TEARDROP RBCS 1+ (NORMAL)
[2017-02-04] MEDS: GABAPENTIN 300 MG CAP PO SCH (21:58)
[2017-02-04] MEDS: ATORVASTATIN 10 MG TAB PO SCH (21:59)
[2017-02-05] VITALS: BP 114/58; PULSE 77; RESP 16; TEMP 97.7; O2SAT 97
[2017-02-05] MEDS: traMADol HCL 50 MG TAB PO PRN (01:05)
[2017-02-05 04:00] VITALS: BP_SYST 109; BP_SYST 114; BP_DIAS 52; BP_DIAS 58; PULSE 71; PULSE 80; RESP 16; TEMP 97.2; O2SAT 96; O2SAT 97
[2017-02-05 05:47] LABS: AUTOMATED NEUTROPHIL # 27.5 TH/MM3 (1.8-7.7); BASOPHIL # 0.1 TH/MM3 (0-0.2); BASOPHIL % 0.3 % (0.0-2.0); EOSINOPHIL % 0.1 % (0.0-4.0); HEMATOCRIT 24.9 % (35.0-46.0); HEMOGLOBIN 7.8 GM/DL (11.6-15.3); LYMPH % 1.4 % (9.0-44.0); LYMPHOCYTE # 0.4 TH/MM3 (1.0-4.8); MEAN CELL VOLUME 84.8 FL (80.0-100.0); MEAN CORPUSCULAR HEMOGLOBIN 26.7 PG (27.0-34.0); MEAN CORPUSCULAR HGB CONC 31.4 % (32.0-36.0); MEAN PLATELET VOLUME 8.2 FL (7.0-11.0); MONO % 3.5 % (0.0-8.0); NEUT % 94.7 % (16.0-70.0); PLATELET COUNT 157 TH/MM3 (150-450); RED BLOOD COUNT 2.93 MIL/MM3 (4.00-5.30)
[2017-02-05] MEDS: LEVOTHYROXINE SODIUM 75 MCG TAB PO SCH (06:05)
[2017-02-05] MEDS: SODIUM CHLOR 0.9% 1000 ML INJ 1,000 ML IV SCH (06:05)
[2017-02-05] MEDS: PETROLEUM/SHARK LIVER OIL/PHENYLEPHRINE 60 GM TUBE TOPICAL SCH ×2 (06:05→11:00)
[2017-02-05 06:41] LABS: PROTHROMBIN TIME - PATIENT 73.3 SEC (9.8-11.6)
[2017-02-05 06:49] LABS: INTERNATIONAL NORMALIZED RATIO 7.3 RATIO
[2017-02-05] MEDS ORDERED: PHYTONADIONE 2.5 MG/SWFI 2.5 ML ORAL SYR PO ONE (07:30)
[2017-02-05 08:00] VITALS: BP 116/57; PULSE 84; PULSE 91; RESP 18; TEMP 97.5; O2SAT 96
[2017-02-05 08:28] LABS: ACANTHOCYTES OCC (NORMAL); BANDS 6 % (0-6); CORRECTED NUCLEATED RBC 1 /100 WBC (0-0); KERATOCYTES OCC (NORMAL); MONOCYTES 4 % (0-8); NEUTROPHIL # MANUAL DIFF 27.8 TH/MM3 (1.8-7.7); NUCLEATED RED BLOOD CELL 1 (0-0); OVALOCYTES 1+ (NORMAL); POLYS (SEG NEUTROPHILS) 90 % (16-70); TOXIC GRANULATION 2+ (NORMAL)
[2017-02-05] MEDS ORDERED: PHYTONADIONE 5 MG/SWFI 5 ML ORAL SYR PO ONE (09:45)
--- NOTE | 2017-02-05 09:47 | HHI.PR ---
Subjective Remarks family present. they want hospice. they spoke with oncology Objective Vitals nad heart reg lung cta abd s/nt legs diffusely ecchymotic with skin tears Vital Signs Date Time Temp Pulse Resp B/P (MAP) Pulse Ox O2 Delivery O2 Flow Rate FiO2 02/05/17 08:00 84 02/05/17 04:00 71 02/05/17 04:00 97.2 80 16 109/52 (71) 96 02/05/17 00:00 97.7 77 16 114/58 (76) 97 02/04/17 23:49 109 02/04/17 20:00 Room Air 02/04/17 20:00 97.8 77 16 139/70 (93) 99 02/04/17 20:00 97 02/04/17 17:00 97.8 84 22 132/71 (91) 96 02/04/17 13:24 16 02/04/17 13:05 97.5 76 22 106/58 (74) 96 02/04/17 11:51 104 02/04/17 10:00 Room Air Result Diagram: 02/05/17 0512 02/03/17 1130 Imaging Last Impressions Abdomen/Pelvis CT 02/03/17 1313 Signed Impressions: Service Date/Time: January 14:10 - CONCLUSION: 1. Large, 11.9 x 6.1 cm mass lesion in the right mid abdomen appears to be contiguous with the ascending colon. In fact, there is air within the collection suggesting luminal communication. Mass lesion also abuts up against the duodenum and the head of the pancreas, however. Diagnostic considerations include a bowel primary versus sarcomatous lesion that has invaded regional structures. 2. In addition , there are multiple low density lymph nodes located posterior to the body of the pancreas, in the retroperitoneum leftward at the level of the renal hilum and a small node juxtaposed between the aorta and IVC measuring 1.7 cm in diameter. 3. Cholelithiasis. 4. 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 5. Small amount of free fluid in the dependent portion of the deep pelvis. Antwan Quiroz MD Chest X-Ray 02/03/17 0000 Signed Impressions: Service Date/Time: January 13:27 - CONCLUSION: No acute pulmonary infiltrates. Stuart Carrero MD A/P Problem List: (1) Intraabdominal mass ICD Codes: R19.00 - Intra-abdominal and pelvic swelling, mass and lump, unspecified site Status: Acute Plan: - Pt is an 86 y/o female with atrial fibrillation on chronic anticoagulation with Coumadin, Cardiomyopathy with AICD, CHF with EF 25-30%, and iron deficiency anemia who was recently admitted to [facility] twice, initially from 01/01/17 to 01/04/17 for anemia, defibrillator firing and A. fib RVR and then again from 01/05/17 to 01/12/17 after her AICD fired again and she was found to be in A. fib RVR. During that admission she had difficulty with rate control for her A. fib. She was discharged on Cardizem 240mg po daily, Metoprolol 75mg po BID and Digoxin 0.125mg po daily. She was noted to have an elevated WBC count during her first admission in December but it was thought to be related to UTI and her AICD firing. During her second admission in December her WBC continued to elevate and the etiology of this was unclear. She had a repeat UA was negative during admission which was negative. Cipro was completed on 01/09. CXR (01/08) noted post surgical features with compensated cardiomegaly, no acute abnormality or significant interval change. Blood cultures drawn on 01/09 with no growth x 5 days. Peripheral blood smear (01/10) noted leukocytosis with neutrophilia, showing a left shift and toxic granulation suggesting a reactive or infectious process. 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 She has followed as an outpatient with Dr. Niño. During recent admission pt received 1 unit PRBCs and Iron infusion during her first admission in December. Per outpatient records, outpatient iron studies have shown a very low iron saturation of 10%. She has had extensive work-up including thyroid function testing, B12 and folate testing which was all normal. 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 As an outpt she had previously reported neg stool guaiac by PCP. Intra-abdominal mass Iron Deficiency Anemia Leukocytosis - Over the last few days the pt has had decreased appetite, complaints of pain in various locations, including the abdomen and lower extremities. Pt has not been eating much or ambulating much at home. Pt has also recently started to have issues with rectal pain and hemorrhoids. She has not had any constipation, diarrhea, melena or BRBPR reported. - Today the pt reportedly has been more lethargic and confused. There was question about possible urinary symptoms but UA in the ED was negative. - Labs in the ED noted an elevated WBC count of 37.7 which is higher than what it was during last admission. - Pt was given a dose of Zosyn in the ED. She has not had any reported fevers or chill. - CT Abd/pelvis was performed in the ED and noted a large, 11.9 x 6.1 cm mass lesion in the right mid abdomen appears to be contiguous with the ascending colon. In fact, there is air within the collection suggesting luminal communication. Mass lesion also abuts up against the duodenum and the head of the pancreas, however. Diagnostic considerations include a bowel primary versus sarcomatous lesion that has invaded regional structures. In addition, there are multiple low density lymph nodes located posterior to the body of the pancreas, in the retroperitoneum leftward at the level of the renal hilum and a small node juxtaposed between the aorta and IVC measuring 1.7 cm in diameter. Pt and family updated on abdomen mass. I reviewed the images. I explained I was not sure what it is...?sarcoma.?continous process for the bowel. The family wanted Dr Niño's opinion on whether it could be a malignancy. But they were leaning against any invasive procedures. They were discussing hospice and seemed to want a hospice consult after seen by Dr Niño. will await his evaluation.; They met with Dr Niño last night. Pt is frail and pt/family not interested in invasive procedures. She would not be a candidate for treatment anyway. They would like hospice for FTT and comfort care. d/c once arrangements madem A. fib Elevated INR - BP has been running low. - Cont. Dig - Decreased Metoprolol dose to 25mg po BID - Hold Cardizem 120mg daily for now - hold coumadin. vit k - INR Cardiomyopathy - Pt with AICD in place - CHF with EF 25-30% - Cont. Lasix and Potassium - Monitor BMP Hypothyroidism - Cont. home meds (2) Leukocytosis ICD Codes: D72.829 - Elevated white blood cell count, unspecified Plan: - See above (3) Elevated INR ICD Codes: R79.1 - Abnormal coagulation profile Status: Acute Plan: - See above (4) Atrial fibrillation ICD Codes: I48.91 - Unspecified atrial fibrillation Status: Chronic Plan: - See above (5) Cardiomyopathy ICD Codes: I42.9 - Cardiomyopathy, unspecified Status: Chronic Plan: - See above Dilshad Cabrera MD Feb 05, 2017 09:46
[2017-02-05] MEDS: FUROSEMIDE 20 MG TAB PO SCH (10:17)
[2017-02-05] MEDS: METOPROLOL TARTRATE 25 MG TAB PO SCH (10:17)
[2017-02-05] MEDS: POTASSIUM CHLORIDE 8 MEQ CONTROLLED RELEASE TAB PO SCH (10:18)
[2017-02-05] MEDS: HYDROCORTISONE ACETATE 25 MG SUPP RECTAL SCH (10:18)
[2017-02-05] MEDS: DIGOXIN 0.125 MG TAB PO SCH (10:29)
[2017-02-05 12:00] VITALS: PULSE 83
--- NOTE | 2017-02-05 13:42 | MB ---
cc: [employer] DATE OF CONSULTATION: 02/04/2017 REASON FOR CONSULTATION: Patient with a history of anemia who presents with abdominal pain. She has had progressive weakness use. She is found to have a large abdominal mass. HISTORY OF PRESENT ILLNESS: This is a 86-year-old female who is chronically admitted, she has a history of mitral valve replacement. She has been on chronically on Coumadin. She has a history of hypothyroidism, hypertension. She was being seen in the hematology clinic for iron deficiency anemia. She has received iron infusions. She now presents to the emergency department with progressive declining and her overall performance status. She has had decreased appetite. She has abdominal pain. She is unable to get out of bed. She has also been occasionally confused. In the emergency room a CT of the abdomen and pelvis was obtained which revealed a large 11.9 x 6.1 cm mass in the right mid abdomen which was continuous with the ascending colon. The mass was abutting against the abdomen and the head of the pancreas. I have been consulted to make further recommendations. The patient likely has underlying malignancy but is quite frail and elderly and debilitated. During this evaluation, the patient's son and daughter were present. The patient was able to have some conversation but apparently was confused. REVIEW OF SYSTEMS Review of systems are unable to be obtained due to the patient's poor mental status. PAST MEDICAL HISTORY 1. History of iron deficiency anemia with hemolysis due to mechanical mitral valve has received iron and blood transfusions Atrial fibrillation on Coumadin. 2. Hyperlipidemia. 3. Hypothyroidism. 4. Hypertension. 5. Cardiomyopathy the systolic congestive heart failure. 6. Has a defibrillator in place. 7. Mechanical mitral valve. 8. Rheumatoid arthritis. 9. Transient ischemic attack. 10. was arthritis 28. He may contract she is acute on chronic she has chronic CHF as stated above with EF of 25 35% PAST SURGICAL HISTORY 1. AICD placement 2. colonoscopy 3. mechanical mitral valve replacement 4. tonsillectomy 5. tubal ligation. MEDICATIONS 1. Metoprolol 25 mg p.o. q.12 h. 2. Digoxin 0.2125 mg daily. 3. Coumadin in the mid and left toes known 5 mg p.o. daily, sometimes 120 mg. She was daily 0.0-10. 4. Folic acid q.i.d. for I drops below Ciloxan 75 mcg daily. Sats 2 ounces of my 29 mg p.o. b.i.d. 5. Atorvastatin 10 mg p.o. q.h.s. gallop and 11/09 and mg p.o. q.h.s. ALLERGIES She has NO KNOWN DRUG ALLERGIES. FAMILY HISTORY This was reviewed and noncontributory to this admission. SOCIAL HISTORY She lives alone. She was in the rehab center in early 2017. PHYSICAL EXAMINATION VITAL SIGNS: Blood pressure is blood pressure is 139/70, pulse in the 70s, temperature is 97.8, O2 sats are 99% on room air. The staff on IN GENERAL: Elderly debilitated female in no apparent distress. She is confused. HEAD, EYES, EARS, NOSE, AND THROAT: Pupils are equal, round, react to light. EOMI. No oral thrush or lesions. NECK: Neck is supple. No JVD, no bruits or lymphadenopathy. CHEST: Clear to auscultation bilaterally. CARDIAC: S1-S2 regular rate and rhythm. ABDOMEN: Soft, nontender. X-RAYS ABDOMEN: Abdomen is soft, distended. She has diffuse mild tenderness. Bowel sounds are decreased. EXTREMITIES: Without any clubbing, cyanosis or edema. SKIN: Without any petechiae lesion or bruises. NEUROLOGIC: focal deficits. PSYCHIATRIC: Mood and affect is appropriate. LABORATORY DATA WBC 35.4, hemoglobin 8.3, platelet count is 149. CHEMISTRIES: Serum chemistries showed sodium 139, potassium 4.2, chloride 104, CO2 23.2, BUN 73, creatinine 0.78, GFR is 70. IMAGING STUDIES CT of the abdomen and pelvis was reviewed which shows a large 11.9 x 6.1 cm mass in the right mid abdomen which is continuous with the ascending colon there is some air collection suggesting luminal communication mass about the duodenum and the head of the pancreas. ASSESSMENT/PLAN This is a 86-year-old female who is quite frail and elderly lady. She is chronically debilitated. She has multiple medical issues including history of congestive heart failure, Iron deficiency anemia, Hypothyroidism Hypertension, history of the defibrillator placement. History of mechanical mitral valve chronically on Coumadin rheumatoid arthritis, history of TIA who is being admitted to the hospital after she presented with abdominal pain, failure to thrive and worsening debility. 1. Large abdominal mass. This was seen on the CT scan of the abdomen and pelvis reviewed imaging myself. I have discussed this case with the family and made for them that this appears to be either full primary or malignancy such as sarcoma. There is also possibility of lymphoma. The patient is quite debilitated and I do not believe that she will be a candidate for any type of systemic chemotherapy, should malignancy be confirmed. After a long discussion with the family they have decided not to pursue a diagnosis and would rather take the patient home with hospice. they are asking that I consult palliative care to have further discussions regarding hospice. I have spoken to the patient's son and daughter. They are also requesting that the patient be made DNR. We will ask palliative care to see this patient. Thank you for allowing me to participate in the care of this patient. I will continue to follow this patient along. MD LOIS Heath/stella /9:43 AM /12:46 PM VESNA
--- NOTE | 2017-02-05 13:49 | HHI.DCPOC ---
Discharge Care Plan Diagnosis: (1) Intraabdominal mass (2) Cardiomyopathy (3) Atrial fibrillation Goals to Promote Your Health * To prevent worsening of your condition and complications * To maintain your health at the optimal level Directions to Meet Your Goals Take your medications as prescribed Follow your dietary instruction Follow activity as directed Keep your appointments as scheduled Take your immunizations and boosters as scheduled If your symptoms worsen call your PCP, if no PCP go to Urgent Care Center or Emergency Room Smoking is Dangerous to Your Health. Avoid second hand smoke Call the 24-hour hour crisis hotline for domestic abuse at Dilshad Cabrera MD Feb 05, 2017 13:49
== END 2017-02-05 15:40 | disposition hospice, inpatient (51) | DRG 844 ==
LOC: NEPC 10:33 → NEDA 14:56 → N04A 16:59
PROVIDERS: ADMIT Hospitalist; ATTEND Hospitalist
DX: D48.7 Neoplasm of uncertain behavior of other specified sites (principal); I42.9 Cardiomyopathy, unspecified; L89.159 Pressure ulcer of sacral region, unspecified stage; I11.0 Hypertensive heart disease with heart failure; I50.22 Chronic systolic (congestive) heart failure; I48.91 Unspecified atrial fibrillation; I08.2 Rheumatic disorders of both aortic and tricuspid valves; R63.0 Anorexia; D50.9 Iron deficiency anemia, unspecified; K64.9 Unspecified hemorrhoids; R79.1 Abnormal coagulation profile; E03.9 Hypothyroidism, unspecified; M15.9 Polyosteoarthritis, unspecified; E78.5 Hyperlipidemia, unspecified; M06.9 Rheumatoid arthritis, unspecified; R62.7 Adult failure to thrive; H91.93 Unspecified hearing loss, bilateral; Z51.5 Encounter for palliative care; Z66 Do not resuscitate; Z79.01 Long term (current) use of anticoagulants; Z86.73 Personal history of transient ischemic attack (TIA), and cerebral infarction without residual deficits; Z95.810 Presence of automatic (implantable) cardiac defibrillator; Z95.2 Presence of prosthetic heart valve
CPT/HCPCS: 71010; 74177; 80048; 80162; 81001; 82105; 82378; 85007; 85027; 85610; 86301; 96365; J2270; J2543; J7030; Q9967